=== PATIENT | male | born 1950 | race Caucasian/White ===

== ENCOUNTER → 2017-01-07 | Outpatient (CLI) | payer OTHER ==
[~2017-01-07] MED LIST: PANT40TA PO; TAMS0.4C59 PO; TRAM-10 PO
[2017-01-07 09:40] LABS: BASO % 1.4 %; BASO ABS # 0.09 K/uL (0-0.2); COMPLETE YES; EOS % 4.5 %; HEMATOCRIT 42.9 % (42-52); IG% 0.2 %; LYMPH % 33.3 %; LYMPH ABS # 2.07 K/uL (1.2-3.4); MEAN CELL VOLUME 92.1 fL (80-100); MEAN CORPUSCULAR HEMOGLOBIN 31.5 pg (25-34); MEAN CORPUSCULAR HGB CONC 34.3 g/dl (32-36); MEAN PLATELET VOLUME 11.1 fL (7.4-10.4); MONO % 12.1 %; NEUT % 48.5 %; PLATELET COUNT 201 K/uL (130-400); RED BLOOD COUNT 4.66 M/uL (4.7-6.1); WHITE BLOOD COUNT 6.21 K/uL (4.8-10.8)
[2017-01-07 09:51] LABS: ALT/SGPT 31 U/L (12-78); BLOOD UREA NITROGEN 11 mg/dl (7-18); BUN/CREATININE RATIO 8.8 (10-20); CALCIUM 9.2 mg/dl (8.5-10.1); CARBON DIOXIDE 28 mmol/L (21-32); CHLORIDE 108 mmol/L (98-107); CHOLESTEROL 125 mg/dl (0-200); GLUCOSE 97 mg/dl (70-99); POTASSIUM 4.5 mmol/L (3.5-5.1); SODIUM 144 mmol/L (136-145); TRIGLYCERIDES 104 mg/dl (0-150); VERY LOW DENSITY LIPOPROT CALC 21 mg/dl
[2017-01-07 10:01] LABS: ALB/GLOB RATIO 1.2 (0.9-2); ALKALINE PHOSPHATASE 48 U/L (45-117); AST/SGOT 25 U/L (15-37); CHOLESTEROL/HDL RATIO 2.6; HDL CHOLESTEROL 49 mg/dl; LDL CHOLESTEROL CALCULATED 55 mg/dl
[2017-01-07 10:08] LABS: ESTIMATED AVERAGE GLUCOSE 123 mg/dl; HA1C FLAG Normal (Normal)
== END | disposition home or self-care (01) ==
LOC: C.LAB 08:15
PROVIDERS: ATTEND Internal Medicine Geriatric Medicine
DX: M19.90 Unspecified osteoarthritis, unspecified site (principal); R97.20 Elevated prostate specific antigen [PSA]; R73.9 Hyperglycemia, unspecified; I10 Essential (primary) hypertension; E78.5 Hyperlipidemia, unspecified

== ENCOUNTER → 2018-01-09 | Outpatient (CLI) | payer OTHER ==
[2018-01-09 10:25] LABS: ALBUMIN 3.9 gm/dl (3.4-5.0); ALT/SGPT 29 U/L (12-78); BLOOD UREA NITROGEN 16 mg/dl (7-18); CALCIUM 9.5 mg/dl (8.5-10.1); CARBON DIOXIDE 28 mmol/L (21-32); CREATININE 1.14 mg/dl (0.60-1.40); GLUCOSE 96 mg/dl (70-99); POTASSIUM 4.2 mmol/L (3.5-5.1); SODIUM 139 mmol/L (136-145)
[2018-01-09 10:28] LABS: ALKALINE PHOSPHATASE 50 U/L (45-117); AST/SGOT 24 U/L (15-37); CHOLESTEROL 123 mg/dl (0-200); LDL CHOLESTEROL CALCULATED 61 mg/dl; TOTAL PROTEIN 7.5 gm/dl (6.4-8.2)
== END | disposition home or self-care (01) ==
LOC: C.LAB 09:19
PROVIDERS: ATTEND Internal Medicine Geriatric Medicine
DX: N40.0 Benign prostatic hyperplasia without lower urinary tract symptoms (principal); R73.9 Hyperglycemia, unspecified; I10 Essential (primary) hypertension; E78.5 Hyperlipidemia, unspecified

== ENCOUNTER → 2018-01-29 | Outpatient (CLI) | payer OTHER ==
[2018-01-29 13:22] LABS: HEMATOCRIT 42.6 % (42-52); HEMOGLOBIN 14.4 g/dL (14.0-18.0); MEAN CORPUSCULAR HEMOGLOBIN 31.4 pg (25-34); MEAN CORPUSCULAR HGB CONC 33.8 g/dl (32-36); MEAN PLATELET VOLUME 11.2 fL (7.4-10.4); PLATELET COUNT 230 K/uL (130-400); RED CELL DISTRIBUTION WIDTH CV 12.6 % (11.5-14.5); RED CELL DISTRIBUTION WIDTH SD 42.5 fL (36.4-46.3); WHITE BLOOD COUNT 6.04 K/uL (4.8-10.8)
== END | disposition home or self-care (01) ==
LOC: C.LABBC 10:51
PROVIDERS: ATTEND Internal Medicine Geriatric Medicine
DX: I48.91 Unspecified atrial fibrillation (principal)

== ENCOUNTER 2020-05-22 10:14 | Observation (INO) ==
[2020-05-22] MEDS ORDERED: SODIUM CHLORIDE 0.9% 1000ML 1,000 ML IV SCH ×2 (11:00→12:22)
[2020-05-22 11:02] LABS: Basophils # (auto) 0.04 K/uL (0-0.2); Basophils % (auto) 0.7 %; Eosinophils # (auto) 0.14 K/uL (0-0.5); Eosinophils % (auto) 2.3 %; Hematocrit (blood only) 39.7 % (42-52); Hemoglobin 13.5 g/dL (14.0-18.0); Lymphocytes # (auto) 2.17 K/uL (1.2-3.4); Lymphocytes % (auto) 36.2 %; Mean Corpuscular Hemoglobin 31.3 pg (25-34); Mean Corpuscular Volume 91.9 fL (80-100); Mean Platelet Volume 10.9 fL (7.4-10.4); Monocytes # (auto) 0.61 K/uL (0.11-0.59); Monocytes % (auto) 10.2 %; Neutrophils # (auto) 3.03 K/uL (1.4-6.5); Neutrophils % (auto) 50.6 %; Platelet Count 214 K/uL (130-400); RDW Standard Deviation 43.9 fL (36.4-46.3); Red Blood Count 4.32 M/uL (4.7-6.1); White Blood Count 5.99 K/uL (4.8-10.8)
[2020-05-22 11:10] LABS: Alanine Aminotransferase 34 U/L (12-78); Aspartate Aminotransferase 25 U/L (15-37); BUN Creatinine Ratio 23.6 (10-20); Blood Urea Nitrogen 64 mg/dl (7-18); Calcium 9.2 mg/dl (8.5-10.1); Carbon Dioxide 25 mmol/L (21-32); Chloride 110 mmol/L (98-107); Est GFR (African American) 26.7; Glucose 105 mg/dl (70-99); Potassium 4.3 mmol/L (3.5-5.1); Sodium 142 mmol/L (136-145)
[2020-05-22 11:14] LABS: Alkaline Phosphatase 57 U/L (45-117); Bilirubin,Total 0.8 mg/dl (0.2-1); Troponin I < 0.015 ng/ml (0-0.045)
--- NOTE | 2020-05-22 11:27 | XRay Report ---
XR chest 1V portable CLINICAL HISTORY: dizziness COMPARISON STUDY: 10/19/2019 FINDINGS: The heart is normal in size. There is no failure. There is no lobar consolidation. Minimall y prominent left basilar markings are likely atelectatic. There are no pleural effusions.[ IMPRESSION: Minimally prominent left basilar markings statistically atelectatic. Otherwise negative c hest. ACT 112: Negative or not required by law. Electronically signed by: Dhiraj Collazo M.D. 05/22/2020 11:26 AM
--- NOTE | 2020-05-22 11:49 | Electrocardiogram Report ---
Test Reason : Blood Pressure : / mmHG Vent. Rate : 058 BPM Atrial Rate : 058 BPM P-R Int : 152 ms QRS Dur : 086 ms QT Int : 408 ms P-R-T Axes : 079 069 050 degrees QTc Int : 400 ms Sinus bradycardia Otherwise normal ECG When compared with ECG of 19-OCT-2019 08:36, No significant change was found Confirmed by Robert Lerma ([id number]) on 05/22/2020 11:49:15 AM Referred By: REFERRED SELF Confirmed By:oRbert Lerma
[2020-05-22 12:01] LABS: Appearance Urine Clear (Clear); Bilirubin Urine Negative (Negative); Blood Urine Negative (Negative); Color Urine Yellow; Glucose Urine UA Negative (Negative); Ketones Urine Negative (Negative); Leukocyte Esterase Urine Negative (Negative); Nitrite Urine Negative (Negative); Protein Urine Negative (Negative); Specific Gravity Urine 1.019 (1.000-1.030); Urobilinogen Urine Negative (Negative)
--- NOTE | 2020-05-22 12:18 | History & Physical Report ---
Date of Service May 22, 2020 Assessment & Plan (1) Acute kidney injury: Creatinine increased from 1.11 at baseline to 2.7 with associated elevated BUN in setting of increased exertion and dehydration - suspected pre-renal Known BPH on tamsulosin 0.8 mg p.o. at bedtime with increasing symptoms. US renal to assess for obstructive cause NSS 1 L bolus given in ER, additional 1 L bolus now, then LR 150 ml/hr UA unremarkable for infection (2) Elevated PSA: Continue tamsulosin. US renal to assess for significant retention (3) Hyperlipidemia: Continue atorvastatin 20mg PO QAM (4) Hypertension: Hold lisinopril due to AISSATOU Continue metoprolol succinate with hold parameters (5) Paroxysmal atrial fibrillation: Currently in NSR Metoprolol for rate control if he goes into this Continue apixaban 5mg PO BID for anticoagulation (6) Gastroesophageal reflux disease: Continue pantoprazole 20mg PO daily (7) DVT prophylaxis: Apixaban as above Admission and Anticipated Discharge Date Admission Date: 05/22/2020 History of Present Illness Chief Complaint: Dizziness Primary Care Provider: Uri Hand DO Girish Pal is a 69 year old male who presents to the ER due to dizziness. This has been present intermittently over the last week while he has been working on his cabin in [facility]. He hasn't worked as hard as he has done taking down his cabin, swinging sledge hammers for a long time. Was mainly drinking pepsi rather than water for hydration and believes he was getting dehydrated. 2 days ago he became much more dizzy occuring throughout the day. Worse when standing up and exerting himself. [place] like he was going lose consciousness but never did. Lost his balance a few times. Room not spinning around. No vision changes but light was hurting his eyes. No headache, just fuzzy feeling on head. Associated generalized but not unilateral weakness. No speech changes. He drove home 2 days ago, although he felt terrified to because of his dizziness. Once home he felt was doing a little better since coming back to [place] but occurred again today so decided to come to the ER. His BPH symptoms of increased urinary frequency and difficulty urinating have been worse over the last week in addition. No fevers, chills, shortness of breath, cough, loss of taste or smell. Allergies Allergy/AdvReac Type Severity Reaction Status Date / Time No Known Allergies Allergy Mild Verified 05/22/20 11:43 Home Medications Home Medications Medication Instructions Recorded Confirmed Type apixaban 5 mg tablet 5 mg PO BID 10/03/19 05/22/20 History tamsulosin 0.4 mg capsule 0.8 mg PO HS #180 cap 12/08/19 05/22/20 Rx tramadol 50 mg tablet 50 mg PO Q6H PRN #30 tab 12/11/19 05/22/20 Rx metoprolol succinate 25 mg 25 mg PO QAM #90 tab 02/16/20 05/22/20 Rx tablet,extended release 24 hr atorvastatin 20 mg tablet 20 mg PO QAM #90 tab 02/29/20 05/22/20 Rx pantoprazole 40 mg tablet,delayed 20 mg PO QAM #90 tab 03/27/20 05/22/20 Rx release lisinopril 10 mg tablet 10 mg PO QAM #30 tab 04/17/20 05/22/20 Rx Past Med/Surg History Medical History Atrial fibrillation BPH (benign prostatic hyperplasia) Chronic back pain Degenerative disc disease Gastroesophageal reflux disease (Acute) Hearing deficit BILAT Hyperlipidemia Hypertension Osteoarthritis Rheumatoid arthritis Urinary frequency also decreased stream Surgical History History of cataract surgery right History of esophagogastroduodenoscopy (EGD) History of tonsillectomy Hx of colonoscopy Hx of hernia repair BILATERAL INGUINAL REPAIR S/P left knee arthroscopy Family History Brother Cancer Father , age 77 Cerebral aneurysm Mother , age 72 COPD (chronic obstructive pulmonary disease) Other Family history non-contributory Social History Preferred Language: Lao Communication Ability: Effective Visual Impairment: No Limitations Hearing Ability: Hard of Hearing 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 Beliefs That Will Affect Care: None marital status: Current Living Situation: Spouse current occupational status: retired Other Information That Helps Us Care for You: No Feels Safe at Home: Yes Safety Concerns: Feels Safe At This Time Smoking Status: Former smoker Smoking End Date: 1984 ; Second Hand Exposure: Yes ; Hx Alcohol Use: Yes Alcohol type: beer Hx Substance Use: No Childhood Exposure to Second-Hand Smoke: Yes Dental Care, Regularly: Yes Physical Activity Frequency: Daily Seatbelt Use: always Sunscreen Use: Yes Review of Systems Review of Systems: All systems reviewed & are unremarkable except as noted in HPI & below Physical Exam Constitutional: WD/WN, vitals as above Eyes: PERRL, conjunctivae normal, anicteric sclerae ENMT: external ear and nose normal, oropharynx normal Neck: trachea midline, no thyromegaly Respiratory: normal respiratory effort, lungs clear to auscultation Cardiovascular: RRR, no murmur, no edema Gastrointestinal (Abdomen): normal bowel sounds, soft, nontender, no hepatosplenomegaly Musculoskeletal: no cyanosis or clubbing, extremities motor strength 5/5 Skin: no rashes, warm and dry Neurologic: CN's II-XI intact bilaterally, moves all extremities and awake; no focal motor deficits and not confused Speech / Cognition: normal speech Motor/Sensory: no tremor, no pronator drift and no sensory deficit Psychiatric: A+Ox3, euthymic affect Genitourinary: no CVA tenderness Lymphatic: no cervical or axillary lymphadenopathy Results & Data Results & Data ([facility]) Vital Signs (Past 12 Hours) Vital Signs Temp Pulse Resp BP Pulse Ox 05/22/20 11:12 97 05/22/20 10:20 36.8 C 59 L 18 131/80 97 Diagnostic Findings XR chest 1V portable IMPRESSION: Minimally prominent left basilar markings statistically atelectatic. Otherwise negative chest. ECG Indication: other (Presyncope) Rate (beats per minute): 58 Rhythm: sinus bradycardia Comparison ECG Date: from (10/19/2019) Change: no significant change Code Status & VTE Plan Code Status Full VTE Prophylaxis Plan VTE Prophylaxis will be ordered: Yes PG Care Time/CCT Total # of Minutes Spent Total Time Spent with Patient: Total time spent is greater than 50% in coordination of care (as documented) at patient's floor/unit and/or counseling patient: Coding Level of Care Code 83391 Initial Inpt Care Lvl 3 Diagnoses Acute kidney injury N17.9 Elevated PSA R97.20 Hyperlipidemia E78.5 Hypertension I10 Paroxysmal atrial fibrillation I48.0 Gastroesophageal reflux disease K21.9 DVT prophylaxis Z29.9
--- NOTE | 2020-05-22 13:15 | Emergency Department Note ---
History of Present Illness General Chief complaint: Dizziness Stated complaint: REAL DIZZY Source: patient Mode of arrival: ambulatory Limitations: no limitations History of Present Illness Provider complaint: Dizziness Onset (ago): week(s) 1 (Worsening over the last 48 hours) Maximum Pain Intensity: 3 This patient is a 69-year-old male who presents to the emergency department with complaints of dizziness that began approximately 1 week ago. The patient states he has been working hard tearing down a cabin in [facility] over the last 2 weeks. He noticed difficulty with his increased exertion immediately however attributed it to the fact that it is more work than he has done in many years. Over the course of the second week, patient has noticed dizziness, particularly when standing up or bending over. He denies any significant trauma but states his upper extremities have been sore because he has been swinging a sledgehammer. Several days ago the patient states he was so dizzy it was difficult for him to drive to the convenient store to buy Gatorade. Patient denies any significant chest pain, fluttering in the chest, shortness of breath, fever, cough. He denies any vomiting or diarrhea. He states he has been urinating and stooling per usual. Home Medications Home Medications Medication Instructions Recorded Confirmed Type apixaban 5 mg tablet 5 mg PO BID 10/03/19 05/22/20 History tamsulosin 0.4 mg capsule 0.8 mg PO HS #180 cap 12/08/19 05/22/20 Rx tramadol 50 mg tablet 50 mg PO Q6H PRN #30 tab 12/11/19 05/22/20 Rx metoprolol succinate 25 mg 25 mg PO QAM #90 tab 02/16/20 05/22/20 Rx tablet,extended release 24 hr atorvastatin 20 mg tablet 20 mg PO QAM #90 tab 02/29/20 05/22/20 Rx pantoprazole 40 mg tablet,delayed 20 mg PO QAM #90 tab 03/27/20 05/22/20 Rx release lisinopril 10 mg tablet 10 mg PO QAM #30 tab 04/17/20 05/22/20 Rx Allergies Allergy/AdvReac Type Severity Reaction Status Date / Time No Known Allergies Allergy Mild Verified 05/22/20 11:43 Past Med/Surg History Medical History Atrial fibrillation BPH (benign prostatic hyperplasia) Chronic back pain Degenerative disc disease Gastroesophageal reflux disease (Acute) Hearing deficit BILAT Hyperlipidemia Hypertension Osteoarthritis Rheumatoid arthritis Urinary frequency also decreased stream Surgical History History of cataract surgery right History of esophagogastroduodenoscopy (EGD) History of tonsillectomy Hx of colonoscopy Hx of hernia repair BILATERAL INGUINAL REPAIR S/P left knee arthroscopy Family History Brother Cancer Father , age 77 Cerebral aneurysm Mother , age 72 COPD (chronic obstructive pulmonary disease) Other Family history non-contributory Social History Preferred Language: Trinidadian Communication Ability: Effective Visual Impairment: No Limitations Hearing Ability: Hard of Hearing 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 and A total of 10 systems reviewed and were otherwise negative Physical Exam Vital Signs Vital Signs - 24 hr 05/22/20 10:20 05/22/20 10:32 05/22/20 11:12 Temperature 36.8 C Temperature Source Oral Pulse Rate - Lying 55 L Pulse Rate - Sitting 56 L Pulse Rate - Standing 69 Pulse Rate 59 L Respiratory Rate 18 Respiratory Effort / Characteristics Non-Labored Respiratory Depth Normal Respiratory Pattern Regular Blood Pressure - Lying 114/73 Blood Pressure - Sitting 121/75 Blood Pressure- Standing 128/82 Blood Pressure 131/80 Blood Pressure Mean 97 Blood Pressure Position Sitting Pulse Oximetry 97 97 Oxygen Delivery Method Room Air Room Air Sepsis Recent Fever Within 48 Hours No Sepsis New/Unexplained Change in Mental Status No Sepsis Action Taken by Nursing No Action Required Vital signs reviewed. General: Well-appearing 69 yo male, in no significant distress. HEENT: No scleral icterus, PERRLA, neck supple. Atraumatic. Cardiovascular: Bradycardic rate and rhythm, no extra sounds. Pulmonary: Clear to auscultation bilaterally, normal work of breathing. Abdomen: Soft, nontender, nondistended, positive bowel sounds. Musculoskeletal: Atraumatic, no peripheral edema. Neurologic: Patient awake alert and oriented x 3 Skin: Warm, dry, no rash Course Administered Medications Discontinued Medications Apixaban (Eliquis) 5 mg PO BID [facility] Stop: 06/21/20 20:59 Last Admin: 05/23/20 07:48 Dose: 5 mg Documented by: [id number] Admin: 05/22/20 19:58 Dose: 5 mg Documented by: [id number] Atorvastatin Calcium (Lipitor) 20 mg PO QAM [facility] Stop: 06/22/20 08:59 Last Admin: 05/23/20 07:48 Dose: 20 mg Documented by: [id number] Sodium Chloride (Nss 1000ml) 1,000 mls @ 999 mls/hr IV .Q1H1M [facility] Stop: 05/22/20 12:00 Last Infusion: 05/22/20 11:56 Dose: 0 mls/hr Documented by: [id number] Admin: 05/22/20 10:54 Dose: 999 mls/hr Documented by: [id number] Sodium Chloride (Nss 1000ml) 1,000 mls @ 999 mls/hr IV .Q1H1M [facility] Stop: 05/22/20 13:22 Last Infusion: 05/22/20 16:16 Dose: 0 mls/hr Documented by: [id number] Admin: 05/22/20 15:00 Dose: 999 mls/hr Documented by: [id number] Lactated Ringer's (Lr) 1,000 mls @ 150 mls/hr IV .Q6H40M [facility] Stop: 06/21/20 16:05 Last Admin: 05/23/20 11:42 Dose: 150 mls/hr Documented by: [id number] Infusion: 05/23/20 11:28 Dose: 150 mls/hr Documented by: [id number] Admin: 05/23/20 04:47 Dose: 150 mls/hr Documented by: [id number] Infusion: 05/23/20 04:44 Dose: 150 mls/hr Documented by: [id number] Admin: 05/22/20 22:03 Dose: 150 mls/hr Documented by: [id number] Infusion: 05/22/20 22:03 Dose: 150 mls/hr Documented by: [id number] Admin: 05/22/20 16:12 Dose: 150 mls/hr Documented by: [id number] Metoprolol Succinate (Toprol Xl) 25 mg PO [facility] Stop: 06/22/20 08:59 Last Admin: 05/23/20 07:48 Dose: 25 mg Documented by: [id number] Pantoprazole Sodium (Protonix) 40 mg PO [facility]; Protocol Stop: 06/22/20 08:59 Last Admin: 05/23/20 07:48 Dose: 40 mg Documented by: [id number] Tamsulosin HCl (Flomax) 0.8 mg PO [facility] Stop: 06/21/20 20:59 Last Admin: 05/22/20 19:58 Dose: 0.8 mg Documented by: [id number] Medical Decision Making Differential Diagnosis Differential includes acute coronary syndrome, myocardial infarction, CVA, TIA, anemia, infection, pneumonia, UTI, pyelonephritis, poor nutrition, dehydration, electrolyte disturbance,hypoglycemia. Medical Records Attestation: I reviewed the patient's medical records. Home Medications Current Medication List: was personally reviewed by me Laboratory Data Attestation: I reviewed the patient's lab results. Result diagrams: 05/23/20 05:59 05/23/20 05:59 Lab Results 05/22/20 05/22/20 05/22/20 Range/Units 10:38 10:38 10:38 WBC 5.99 (4.8-10.8) K/uL RBC 4.32 L (4.7-6.1) M/uL Hgb 13.5 L (14.0-18.0) g/dL Hct 39.7 L (42-52) % MCV 91.9 (80-100) fL MCH 31.3 (25-34) pg MCHC 34.0 (32-36) g/dL RDW Std Deviation 43.9 (36.4-46.3) fL RDW Coeff of Gwyn 13.0 (11.5-14.5) % Plt Count 214 (130-400) K/uL MPV 10.9 H (7.4-10.4) fL Immature Gran % (Auto) 0.0 % Neut % (Auto) 50.6 % Lymph % (Auto) 36.2 % [place] % (Auto) 10.2 % Eos % (Auto) 2.3 % Baso % (Auto) 0.7 % Neut # (Auto) 3.03 (1.4-6.5) K/uL Lymph # (Auto) 2.17 (1.2-3.4) K/uL [place] # (Auto) 0.61 H (0.11-0.59) K/uL Eos # (Auto) 0.14 (0-0.5) K/uL Baso # (Auto) 0.04 (0-0.2) K/uL Immature Gran # (Auto) 0.00 (0.00-0.02) K/uL Sodium 142 (136-145) mmol/L Potassium 4.3 (3.5-5.1) mmol/L Chloride 110 H (98-107) mmol/L Carbon Dioxide 25 (21-32) mmol/L Anion Gap 7.0 (3-11) BUN 64 H (7-18) mg/dl Creatinine 2.70 H (0.6-1.4) mg/dl Est Cr Clr Drug Dosing Not Reportable Est GFR ( Amer) 26.7 Est GFR (Non-Af Amer) 23.0 BUN/Creatinine Ratio 23.6 H (10-20) Glucose 105 H (70-99) mg/dl Calcium 9.2 (8.5-10.1) mg/dl Magnesium (1.8-2.4) mg/dl Total Bilirubin 0.8 (0.2-1) mg/dl AST 25 (15-37) U/L ALT 34 (12-78) U/L Alkaline Phosphatase 57 (45-117) U/L Total Creatine Kinase 131 (39-308) U/L Troponin I < 0.015 (0-0.045) ng/ml Total Protein 8.0 (6.4-8.2) gm/dl Albumin 4.0 (3.4-5.0) gm/dl Globulin 4.0 (2.5-4.0) gm/dl Albumin/Globulin Ratio 1.0 (0.9-2) Urine Color Urine Appearance (Clear) Urine pH (4.5-7.5) Ur Specific [place] (1.000-1.030) Urine Protein (Negative) Urine Glucose (UA) (Negative) Urine Ketones (Negative) Urine Blood (Negative) Urine Nitrite (Negative) Urine Bilirubin (Negative) Urine Urobilinogen (Negative) Ur Leukocyte Esterase (Negative) 05/22/20 05/22/20 Range/Units 10:38 11:45 WBC (4.8-10.8) K/uL RBC (4.7-6.1) M/uL Hgb (14.0-18.0) g/dL Hct (42-52) % MCV (80-100) fL MCH (25-34) pg MCHC (32-36) g/dL RDW Std Deviation (36.4-46.3) fL RDW Coeff of Gwyn (11.5-14.5) % Plt Count (130-400) K/uL MPV (7.4-10.4) fL Immature Gran % (Auto) % Neut % (Auto) % Lymph % (Auto) % [place] % (Auto) % Eos % (Auto) % Baso % (Auto) % Neut # (Auto) (1.4-6.5) K/uL Lymph # (Auto) (1.2-3.4) K/uL [place] # (Auto) (0.11-0.59) K/uL Eos # (Auto) (0-0.5) K/uL Baso # (Auto) (0-0.2) K/uL Immature Gran # (Auto) (0.00-0.02) K/uL Sodium (136-145) mmol/L Potassium (3.5-5.1) mmol/L Chloride (98-107) mmol/L Carbon Dioxide (21-32) mmol/L Anion Gap (3-11) BUN (7-18) mg/dl Creatinine (0.6-1.4) mg/dl Est Cr Clr Drug Dosing Est GFR ( Amer) Est GFR (Non-Af Amer) BUN/Creatinine Ratio (10-20) Glucose (70-99) mg/dl Calcium (8.5-10.1) mg/dl Magnesium 2.1 (1.8-2.4) mg/dl Total Bilirubin (0.2-1) mg/dl AST (15-37) U/L ALT (12-78) U/L Alkaline Phosphatase (45-117) U/L Total Creatine Kinase (39-308) U/L Troponin I (0-0.045) ng/ml Total Protein (6.4-8.2) gm/dl Albumin (3.4-5.0) gm/dl Globulin (2.5-4.0) gm/dl Albumin/Globulin Ratio (0.9-2) Urine Color Yellow Urine Appearance Clear (Clear) Urine pH 5.0 (4.5-7.5) Ur Specific Wesley 1.019 (1.000-1.030) Urine Protein Negative (Negative) Urine Glucose (UA) Negative (Negative) Urine Ketones Negative (Negative) Urine Blood Negative (Negative) Urine Nitrite Negative (Negative) Urine Bilirubin Negative (Negative) Urine Urobilinogen Negative (Negative) Ur Leukocyte Esterase Negative (Negative) Imaging Data Radiologist's Impression: XR chest 1V portable CLINICAL HISTORY: dizziness COMPARISON STUDY: 10/19/2019 FINDINGS: The heart is normal in size. There is no failure. There is no lobar consolidation. Minimally prominent left basilar markings are likely atelectatic. There are no pleural effusions.[ IMPRESSION: Minimally prominent left basilar markings statistically atelectatic. Otherwise negative chest. ACT 112: Negative or not required by law. Electronically signed by: Dhiraj Collazo M.D. 05/22/2020 11:26 AM Dictated: 05/22/20 1125 Transcribed: 05/22/20 1125 renal/blad retro comp HISTORY: Renal insufficiency AISSATOU, known BPH ?hydronephrosis COMPARISON: None. FINDINGS: Right kidney: Maximum dimension 11.5 cm. No evidence for hydronephrosis. Normal corticomedullary differentiation and cortical thickness. Left kidney: Maximum dimension 10.9 cm. No evidence for hydronephrosis Normal corticomedullary differentiation and cortical thickness. Bladder: No bladder wall thickening. The bilateral ureteral jets were identified. IMPRESSION: Normal renal ultrasound. ACT 112: Negative or not required by law. The above report was generated using voice recognition software. It may contain grammatical, syntax or spelling errors. Electronically signed by: Carmelo Wagner M.D. 05/22/2020 3:16 PM ECG Data Attestation: I personally reviewed and interpreted this ECG as follows: Indication: + weakness Rate (beats per minute): 58 Rhythm: + sinus bradycardia ECG Intervals/blocks: + Normal QRS and + Normal QT-c ECG [place]: + Normal ECG ST segments: + Normal ST segments ECG Findings: no PACs and no PVCs Blood Pressure Blood Pressure Findings: Elevated blood pressure Blood Pressure Disposition: Referred to patients primary care provider DEVIN Narrative This patient was evaluated and appeared to be in no significant distress. An order for cardiac monitoring was placed and the patient is found to be in a sinus bradycardia at 58 bpm. IV access was obtained and laboratory work was drawn. The patient was hydrated with normal saline solution. Chest x-ray was performed and reveals atelectasis at the left base no other acute abnormality. Laboratory work was obtained and reveals a normal WBC but an elevated creatinine at 2.70. Patient's BUN is 64. Patient's troponin is normal and a total CK is 131. Urinalysis is clear. Patient's vital signs did remain stable. The patient is suffering an acute kidney injury from dehydration from the ov erexertion of the last 2 weeks. He has not been able to adequately hydrate. Patient will be evaluated by the hospitalist for further management. He is aware of the plan and agrees. Impression & Plan Acute kidney injury, Dehydration after exertion, Dizziness Discharge Plan Visit Data *Final* Discharge Date/Time: 05/22/20 15:54 Chief Complaint: Dizziness Stated Complaint: REAL DIZZY ED Provider: Jennifer Amato ED Midlevel Provider: Bossman Kaur Discharge Problem: Acute kidney injury, Dehydration after exertion, Dizziness Patient Disposition: Admitted As Inpatient Discharge Instructions Interventions: ED Discharge Assessment Last Done: 05/22/20 15:54
--- NOTE | 2020-05-22 15:17 | Ultrasound Report ---
US renal/blad retro comp HISTORY: Renal insufficiency AISSATOU, known BPH ?hydronephrosis COMPARISON: None. FINDINGS: Right kidney: Maximum dimension 11.5 cm. No evidence for hydronephrosis. Normal corticomedullary diff erentiation and cortical thickness. Left kidney: Maximum dimension 10.9 cm. No evidence for hydronephrosis Normal corticomedullary diffe rentiation and cortical thickness. Bladder: No bladder wall thickening. The bilateral ureteral jets were identified. IMPRESSION: Normal renal ultrasound. ACT 112: Negative or not required by law. The above report was generated using voice recognition software. It may contain grammatical, syntax or spelling errors. Electronically signed by: Carmelo Wagner M.D. 05/22/2020 3:16 PM
[2020-05-22] MEDS ORDERED: TRAMADOL HCL 50 MG TABLET PO PRN (16:06)
[2020-05-22] MEDS: LACTATED RINGER'S 1,000 ML IV SCH ×2 (16:12→22:03)
[2020-05-22] MEDS ORDERED: ACETAMINOPHEN 325 MG TAB PO PRN (19:42)
[2020-05-22] MEDS ORDERED: POLYETHYLENE (MIRALAX) 17 GM PACK PO PRN (19:42)
[2020-05-22] MEDS ORDERED: ONDANSETRON INJ 2 MG/ML 2 ML VIAL IV PRN (19:42)
[2020-05-22] MEDS ORDERED: MAGNESIUM HYDROXIDE SUSP 30 ML UDC PO PRN (19:42)
[2020-05-22] MEDS ORDERED: ALUMINUM/MAGNESIUM SUSP 30 ML UDC PO PRN (19:42)
[2020-05-22] MEDS: APIXABAN 5 MG TABLET PO SCH (19:58)
[2020-05-22] MEDS ORDERED: TAMSULOSIN HCL 0.4 MG CAP PO SCH (21:00)
[2020-05-23] MEDS: LACTATED RINGER'S 1,000 ML IV SCH ×2 (04:47→11:42)
[2020-05-23 06:19] LABS: Hemoglobin 11.6 g/dL (14.0-18.0); Mean Corpuscular Hemoglobin 30.5 pg (25-34); Mean Corpuscular Hgb Conc 33.1 g/dL (32-36); Mean Corpuscular Volume 92.1 fL (80-100); Mean Platelet Volume 10.7 fL (7.4-10.4); Platelet Count 182 K/uL (130-400); RDW Coefficient of Variation 12.8 % (11.5-14.5); RDW Standard Deviation 43.1 fL (36.4-46.3); White Blood Count 5.54 K/uL (4.8-10.8)
[2020-05-23 06:56] LABS: BUN Creatinine Ratio 24.7 (10-20); Calcium 8.7 mg/dl (8.5-10.1); Creatinine Clr Calc Pharmacy 46.1 ml/min; Est GFR (African American) 49.8; Potassium 4.2 mmol/L (3.5-5.1)
[2020-05-23] MEDS: APIXABAN 5 MG TABLET PO SCH (07:48)
[2020-05-23] MEDS ORDERED: PANTOprazole 40 MG TAB PO SCH (09:00)
[2020-05-23] MEDS ORDERED: METOPROLOL SUCC 25MG EXT REL TAB PO SCH (09:00)
[2020-05-23] MEDS ORDERED: ATORVASTATIN 20 MG TAB PO SCH (09:00)
--- NOTE | 2020-05-23 12:48 | Discharge Summary ---
Date of Service May 23, 2020 Admission HPI Per Admitting Provider Girish Pal is a 69 year old male who presents to the ER due to dizziness. This has been present intermittently over the last week while he has been working on his cabin in [facility]. He hasn't worked as hard as he has done taking down his cabin, swinging sledge hammers for a long time. Was mainly drinking pepsi rather than water for hydration and believes he was getting dehydrated. 2 days ago he became much more dizzy occuring throughout the day. Worse when standing up and exerting himself. [place] like he was going lose consciousness but never did. Lost his balance a few times. Room not spinning around. No vision changes but light was hurting his eyes. No headache, just fuzzy feeling on head. Associated generalized but not unilateral weakness. No speech changes. He drove home 2 days ago, although he felt terrified to because of his dizziness. Once home he felt was doing a little better since coming back to [place] but occurred again today so decided to come to the ER. His BPH symptoms of increased urinary frequency and difficulty urinating have been worse over the last week in addition. No fevers, chills, shortness of breath, cough, loss of taste or smell. Principal Diagnosis Acute Kidney Injury Discharge Exam Constitutional WD/WN, vitals as above Eyes PERRL, conjunctivae normal, anicteric sclerae ENMT external ear and nose normal, oropharynx normal Mouth: + dry oral mucous membranes Neck normal visual inspection Respiratory normal respiratory effort, lungs clear to auscultation Cardiovascular Rate/Rhythm: regular rate and regular rhythm Heart Sounds: normal S1 and normal S2; no gallop, no murmur and no cardiac rub Vessels: normal peripheral pulses; no JVD Extremities: no pedal edema Gastrointestinal (Abdomen) normal bowel sounds, soft, nontender, no hepatosplenomegaly Musculoskeletal no cyanosis or clubbing, extremities motor strength 5/5 Skin no rashes, warm and dry + turgor decreased Neurologic patellar DTR's 2+ bilat, sensation intact Psychiatric A+Ox3, euthymic affect Discharge Data Allergies Allergy/AdvReac Type Severity Reaction Status Date / Time No Known Allergies Allergy Mild Verified 05/22/20 11:43 Consultations 05/22/20 11:59 ED Decision to Admit Stat 06/22/20 12:18 ED Decision to Admit Stat Ordered Studies 05/22/20 12:38 US renal/blad retro comp Stat Hospital Course (1) Acute kidney injury: - Cr 2.7 on admission with subsequent improvement after IV rehydration; 1 .6 this AM - suspect that this is likely pre-renal in etiology - BMP in two days - advised patient to drink 100oz of water daily until follow-up with Dr. Hand on 05/26 - if Cr does not continue to improve, then would consider FeNa calculation for examination of potential intrinsic renal contributions to AISSATOU Total Time Total Time Spent Total Time Spent (In Minutes): <30 Discharge Plan Discharge Items Patient Disposition: Home - Self-Care Reason For Visit: AISSATOU Discharge Diagnosis: Acute Kidney Injury Activity: Per Instructions section Non-emergency contact: Primary Care Provider Call non-emergency contact if: you have any medication questions and your symptoms worsen Follow-up/Referrals: Uri Hand, DO [Primary Care Provider] - 05/26/20 11:00 am (Please, follow up at Dr. Uri Hand's office with his associate, Tiffany Tiwari PA-C, on FridayMay 26 at 11:00 am. *If you need to change this appointment, call the office at [phone].) Diet: Regular Ambulatory Orders: Basic Metabolic Panel (Routine) Timeframe: 2 Days Location: Determined by Patient Ordered By: Tono Ornelas Attending Provider Instructions: You were seen and admitted following continued fatigue and dizziness over the last ten days; during this admission, it was discovered that you were significantly dehydrated and as a result of this there was damage to your kidney. Following receiving some more fluids through an IV, the labs that we use to monitor your kidney function had improved. As a result of this improvement, you are now being discharged. It is important that in the next two days, you have a repeat lab check that will continue to monitor your kidney numbers. We were able to arrange an appointment with Dr. Hand for 05/26, at 11am; it is important that after you get the lab drawn you remind them to include Dr. Hand on a copy of the results. In order to continue to improve your kidney number following discharge, it is important that you increase that amount of water that you drink especially while you are working outside in the sun. Over the next two days you should aim to drink 100 ounces of water each day. Once you have improvement in your kidney numbers, your doctor will likely instruct you to reduce your water consumption to approximately 70-80 ounces of water a day. It is important that this is water, and not Pepsi, as Pepsi does not increase your hydration and when you're working outside you will continue to dehydrate yourself. Pending Studies at Discharge: No Stand-Alone Forms: [facility], Smoking Cessation Medications and DC Order Prescriptions: Continued tamsulosin 0.4 mg capsule 0.8 mg PO HS Qty: 180 RF: 3 tramadol 50 mg tablet 50 mg PO Q6H PRN (Reason: pain) Qty: 30 RF: 0 metoprolol succinate 25 mg tablet extended release 24 hr 25 mg PO QAM Qty: 90 RF: 1 atorvastatin 20 mg tablet 20 mg PO QAM Qty: 90 RF: 3 pantoprazole 40 mg tablet,delayed release (DR/EC) 20 mg PO QAM Qty: 90 RF: 1 lisinopril 10 mg tablet 10 mg PO QAM Qty: 30 RF: 0 Eliquis 5 mg tablet 5 mg PO BID RF: 0 Discharge Orders: Discharge Order (Routine); Ordered 05/23/20 Ordered By: Tono Brar Admission Data Admit Date/Time: 05/22/20 12:39 Attending Provider: Sin Gillette Admit Provider: Klaus Jin Primary Care Provider: Uri Hand Other Providers: Jennifer Amato ; Klaus Jin Other Interventions: Discharge Summary Assessment (RN) Last Done: 05/23/20 14:39 DC Date/Time DO NOT enter until pt leaves facility: 05/23/20 15:46 Supervising Physician Co-Signing Physician Notes I personally examined the patient and verified all condon points of history and exam, discussed case, and agree with decision making with Dr Brar. feeling better and strongly wants to go home. discussed risks/benefits and choices - most comfortable with home and ongoing PO hydration, outpt labs in ~2 days. vitals noted nad heent nc at mmm breathing unlabored no accessory muscles good effort skin no rashes no pallor or icterus AISSATOU/ARF - due to dehydration/prerenal status - nwo improving. stable to go home as is his strong desire. aggressive ongoing PO hydration, labs on 05/25. otherwise as above Resident Activity Tracking Resident Involvement: Resident Care Provided Care Provided: Adult Hospital Medicine
--- NOTE | 2020-05-23 16:34 | Billing Data ---
Date of Service May 23, 2020 Coding Level of Care Code D/C Day Management <30 mins
== END 2020-05-23 15:46 | disposition home or self-care (01) | DRG 641 ==
LOC: ED 10:14 → INTOOBSV 12:39 → 2W 12:39 → SUATTDRO 12:39 → 2W 15:54

== ENCOUNTER 2024-09-01 17:53 | Inpatient (IN) ==
[2024-09-01 19:08] LABS: Basophils # (auto) 0.09 K/uL (0.00-0.20); Eosinophils # (auto) 0.08 K/uL (0.00-0.50); Eosinophils % (auto) 0.9 %; Hematocrit (blood only) 32.3 % (42.0-52.0); Hemoglobin 10.7 g/dl (14.0-18.0); Immature Granulocytes # (auto) 0.02 K/uL (0.01-0.20); Immature Granulocytes % (auto) 0.2 %; Lymphocytes # (auto) 0.85 K/uL (1.20-3.40); Lymphocytes % (auto) 9.2 %; Mean Corpuscular Hemoglobin 30.7 pg (25.0-34.0); Mean Corpuscular Hgb Conc 33.1 g/dL (32.0-36.0); Mean Corpuscular Volume 92.8 fL (80.0-100.0); Mean Platelet Volume 9.8 fL (9.4-12.4); Monocytes # (auto) 1.16 K/uL (0.11-0.59); Monocytes % (auto) 12.5 %; Neutrophils # (auto) 7.05 K/uL (1.40-6.50); Neutrophils % (auto) 76.2 %; Platelet Count 567 K/uL (130-400); RDW Coefficient of Variation 12.8 % (11.5-14.5); RDW Standard Deviation 43.8 fL (36.4-46.3); Red Blood Count 3.48 M/uL (4.70-6.10); White Blood Count 9.25 K/ul (4.8-10.8)
[2024-09-01 19:25] LABS: Albumin Globulin Ratio 0.7 (0.9-2); Albumin Level 3.2 gm/dl (3.4-5.0); BUN Creatinine Ratio 12.8 (10-20); Bilirubin,Total 0.4 mg/dl (0.2-1.0); Calcium 8.8 mg/dl (8.6-10.3); Creatinine Clr Calc Pharmacy 35.9 ml/min; Globulin 4.5 gm/dl (2.5-4.0); Potassium 4.2 mmol/L (3.5-5.1); Total Protein 7.7 gm/dl (6.0-8.3)
[2024-09-01] MEDS: HYDROmorphone INJ 0.5 MG/0.5 ML SYR IV PRN ×2 (19:29→23:05)
[2024-09-01] MEDS: ONDANSETRON INJ 2 MG/ML 2 ML VIAL IV STA (19:29)
--- NOTE | 2024-09-01 19:57 | History & Physical Report ---
Date of Service September 01, 2024 Assessment & Plan (1) Perinephric hematoma: (2) Hydronephrosis: (3) Elevated serum creatinine: (4) Anemia: (5) Gastroesophageal reflux disease: (6) BPH (benign prostatic hyperplasia): (7) Hypertension: (8) Hyperlipidemia: Yanna Stout is a 73M w/ PMH of prediabetes, AFib, bladder mass, anemia, back pain, GERD, BPH, HTN, and HLD who presents for abnormal labs and imaging noted outpatient. Perinephric Hematoma - S/p TURP 08/16 w/ complications requiring stent placement for scarring/strictures - CTAP 09/01 indicating right perinephric hematoma ~ 10 cm and left hydronephrosis - Hgb reduced to 10.3 from baseline 12 - On chronic Eliquis for AFib, held on admission Would restart when hematoma deemed clinically stable d/t risk of stroke from A Fib - Hemodynamically stable on room air - Continues to urinate regularly w/o hematuria, patient preference to avoid Hui at this time - Urology recommending admission, consulted for further recommendations in AM - Continue to monitor H&H Acute Kidney Injury - Baseline ~1.6, now 1.9+ - Suspect dehydration/poor PO intake component - Start mIVF Echo 03/2024 w/ EF 55-60% Acute Blood Loss Anemia Patient on Chronic Anticoagulation (Eliquis) - Baseline Hgb ~ 12, now 10.3 - Anticoagulation held on admission - Trend H&H Chronic Conditions: - AFib: hold Anticoagulation, continue Metoprolol, rate controlled - HLD - hold Atorvastatin - HTN - hold CHANTEL-I d/t AISSATOU, continue Metoprolol - GERD - continue Pantoprazole - Bladder Spasms - hold oxybutynin d/t AISSATOU, continue Pyridium/tamsulosin Code: Full DVT: Ambulation Diet: NPO pending Urology Dispo: Med/tele History of Present Illness Chief Complaint: Perinephric Hematoma Primary Care Provider: Uri Hand DO Girish is a 73M w/ PMH of prediabetes, bladder mass, anemia, back pain, GERD, BPH, HTN, and HLD who presents for abnormal labs and imaging noted outpatient. ED: [facility] HPI: Patient presented to the Urologist today for planned post-TURP follow up and was sent for CT-AP and labs due to generalized illness since his surgical procedure 08/19/24. Patient's post-operative course was complicated by scarring, strictures, and urinary obstruction. Patient currently maintains a stent on the right side. Patient notes that he has felt generally weak and fatigued over the last 2 weeks and has had no appetite or drive to drink, so much so that he has lost 10 lbs. Post-surgical pathology did not show signs of malignancy. Patient denies URI sx, fevers or congestion, but has been experiencing intermittent chills. He notes that he has had right sided flank pain since his procedure that is tender to palpation. He denies additional abdominal discomfort, nausea or emesis. He notes that he is incontinent of urine at baseline and has a high urinary frequency (he uses depends at home and prefers to avoid catheterization if possible), but that over the last two weeks his urine has been increasingly foul/strong scented and cloudy. He did require catheterization during admission for his procedure. Patient denies hematuria. Continues to move bowels regularly w/o BRBPR or melena. Allergies Allergy/AdvReac Type Severity Reaction Status Date / Time No Known Drug Allergies Allergy Verified 08/16/24 11:59 Home Medications Medication Instructions Recorded Confirmed Type cholecalciferol (vitamin D3) 25 25 mcg PO QAM 01/24/22 08/16/24 History mcg (1,000 unit) capsule vitamin E acetate 100 unit capsule 100 unit PO QAM 04/15/24 08/16/24 History metoprolol succinate 25 mg 25 mg PO QAM #90 tabs 04/28/24 08/16/24 Rx tablet,extended release 24 hr tamsulosin 0.4 mg capsule 0.8 mg (2 x 0.4 mg) PO HS #180 caps 04/28/24 08/16/24 Rx oxybutynin chloride 5 mg tablet 5 mg PO TID PRN bladder spasms #30 05/10/24 Rx tabs apixaban 5 mg tablet (Eliquis) See Rx Instructions .Route 06/09/24 08/16/24 Rx .COMPLEX #180 tabs pantoprazole 40 mg tablet,delayed 40 mg PO QAM #90 tabs 07/23/24 08/16/24 Rx release ampicillin 500 mg capsule 500 mg PO TID #30 caps 08/16/24 Rx phenazopyridine 200 mg tablet 200 mg PO Q8H PRN pain #10 tabs 08/16/24 Rx (Pyridium) atorvastatin 20 mg tablet (Lipitor) 20 mg PO QAM #90 tabs 08/26/24 Rx losartan 100 mg tablet (Cozaar) 100 mg PO HS #90 tabs 08/31/24 Rx levofloxacin 500 mg tablet 500 mg PO DAILY #10 tabs 09/01/24 09/01/24 Rx Past Med/Surg History Problem List Perinephric hematoma (Acute) Upper respiratory infection Pre-operative cardiovascular examination, myocardial ischemia Abnormal cardiovascular stress test 04/05/24 stress: development of flat to downsloping ST segment depressions, development of afib with RVR; this was followed by a Cardiac CT/FFR Coronary Arteries which showed moderate CAD (non-hemodynamically significant) and nonobstructive disease in Left coronary arteries Hydronephrosis Elevated serum creatinine Skin lesion of face Prediabetes Bladder mass Anemia Bladder wall thickening Chronic back pain Gastroesophageal reflux disease BPH (benign prostatic hyperplasia) Followed by Urology Hypertension Hyperlipidemia Medical History Elevated serum creatinine per Urology, pt with 'significant outlet obstruction'; creat remains slightly elevated Abnormal cardiovascular stress test 04/05/24 stress: development of flat to downsloping ST segment depressions, development of afib with RVR; this was followed by a Cardiac CT/FFR Coronary Arteries which showed moderate CAD (non-hemodynamically significant) and nonobstructive disease in Left coronary arteries Hyperlipidemia GERD (gastroesophageal reflux disease) Chronic back pain BPH (benign prostatic hyperplasia) Bladder mass History of anemia Hypertension CRAWFORD (dyspnea on exertion) mild Prediabetes diet and exercise Cervicalgia History of bladder stone History of prostate cancer (~2021) radiation tx completed Chronic obstructive pulmonary disease History of asthma As child Bronchospasm Remote hx- pt "unsure of any details, doesn't remember this at all" Degenerative disc disease Hearing deficit B/L hearing loss - no BLISS's Atrial fibrillation pt had afib with RVR during stress test 04/05/24, currently on Eliquis Surgical History History of cystoscopy cysto, stent 04/15/24 [facility]: MAC without issue Hx of bilateral cataract extraction Hx of knee surgery R/L (1970s) Hx of arthroscopy of right knee History of transurethral resection of bladder tumor (TURBT) S/P left knee arthroscopy History of esophagogastroduodenoscopy (EGD) History of tonsillectomy Hx of colonoscopy Hx of hernia repair B/L inguinal hernia Family History Brother , age 65 Cancer Father , age 77 Cerebral aneurysm Mother , age 72 Lung cancer COPD (chronic obstructive pulmonary disease) Other Family history non-contributory No family history of adverse response to anesthesia Denies family history of Ovarian cancer Prostate cancer Diabetes Myocardial infarction Breast cancer Colorectal cancer Stroke Social History Smoking Status: Never smoker Tobacco Type: Cigarettes Age Started Using Tobacco: 19; Age Quit Using Tobacco: 35; packs per day: 1; Second Hand Exposure: Yes (hx growing up); Do You Dip or Chew Tobacco: No; Hx Alcohol Use: No Hx Substance Use: No Preferred Language: Polish Communication Ability: Effective Visual Impairment: No Limitations Hearing Ability: Hard of Hearing Cutting Pressman Required: No Beliefs That Will Affect Care: None marital status: Current Living Situation: Spouse current occupational status: retired current occupation: retired from [employer] How many Children do You have: 2 Feels Safe at Home: Yes Safety Concerns: Feels Safe At This Time Childhood Exposure to Second-Hand Smoke: Yes Diet: regular caffeine: Yes (Pepsi at least 2 liters/day) during the past year weight has: remained stable Dental Care, Regularly: Yes Physical Activity Frequency: Daily Physical Activity Frequency Comment: sking/four wheeling/active lifestyle Seatbelt Use: always Sunscreen Use: Yes Do you think of yourself as: straight/heterosexual Assistive Devices: None Physical Exam Physical Exam: Gen: NAD, alert, interactive HEENT: Supple, no LAD, no thyromegaly, no JVD, dry mucous membranes Resp:Non-labored, no wheezing/rhonchi/rales, CTAB CV:RRR, normal S1/S2, no M/R/G Abd: Soft, non-distended, no TTP, normoactive bowels, no masses, right CVA tenderness, no suprapubic TTP Extr: 2+ dp bilaterally, no edema Skin: No rashes lesions or erythema Results & Data Results & Data Vital Signs (Past 12 Hours) Vital Signs Temp Pulse Resp BP Pulse Ox O2 Del Method 09/01/24 18:33 74 09/01/24 18:19 36.9 C 74 20 143/77 H 96 Room Air Laboratory Results Laboratory Results WBC 9.25 K/ul (4.8-10.8) 09/01/24 18:36 RBC 3.48 M/uL (4.70-6.10) L 09/01/24 18:36 Hgb 10.7 g/dl (14.0-18.0) L 09/01/24 18:36 Hct 32.3 % (42.0-52.0) L 09/01/24 18:36 MCV 92.8 fL (80.0-100.0) 09/01/24 18:36 MCH 30.7 pg (25.0-34.0) 09/01/24 18:36 MCHC 33.1 g/dL (32.0-36.0) 09/01/24 18:36 RDW Std Deviation 43.8 fL (36.4-46.3) 09/01/24 18:36 RDW Coeff of Gwyn 12.8 % (11.5-14.5) 09/01/24 18:36 Plt Count 567 K/uL (130-400) H 09/01/24 18:36 MPV 9.8 fL (9.4-12.4) 09/01/24 18:36 Immature Gran % (Auto) 0.2 % 09/01/24 18:36 Neut % (Auto) 76.2 % 09/01/24 18:36 Lymph % (Auto) 9.2 % 09/01/24 18:36 [place] % (Auto) 12.5 % 09/01/24 18:36 Eos % (Auto) 0.9 % 09/01/24 18:36 Baso % (Auto) 1.0 % 09/01/24 18:36 Neut # (Auto) 7.05 K/uL (1.40-6.50) H 09/01/24 18:36 Lymph # (Auto) 0.85 K/uL (1.20-3.40) L 09/01/24 18:36 [place] # (Auto) 1.16 K/uL (0.11-0.59) H 09/01/24 18:36 Eos # (Auto) 0.08 K/uL (0.00-0.50) 09/01/24 18:36 Baso # (Auto) 0.09 K/uL (0.00-0.20) 09/01/24 18:36 Immature Gran # (Auto) 0.02 K/uL (0.01-0.20) 09/01/24 18:36 PT 12.4 Seconds (9.0-12.0) H 09/01/24 18:36 INR 1.2 (0.9-1.1) H 09/01/24 18:36 APTT 28 Seconds (21-31) 09/01/24 18:36 PTT Ratio 1.0 09/01/24 18:36 Sodium 137 mmol/L (136-145) 09/01/24 18:36 Potassium 4.2 mmol/L (3.5-5.1) 09/01/24 18:36 Chloride 103 mmol/L (98-107) 09/01/24 18:36 Carbon Dioxide 29 mmol/L (21-32) 09/01/24 18:36 Anion Gap 5 (3-11) 09/01/24 18:36 BUN 25 mg/dl (6-23) H 09/01/24 18:36 Creatinine 1.95 mg/dl (0.6-1.4) H 09/01/24 18:36 Est Cr Clr Drug Dosing 35.9 ml/min 09/01/24 18:36 eGFR 35.66 09/01/24 18:36 BUN/Creatinine Ratio 12.8 (10-20) 09/01/24 18:36 Glucose 127 mg/dl (70-99(Fasting)) H 09/01/24 18:36 Calcium 8.8 mg/dl (8.6-10.3) 09/01/24 18:36 Total Bilirubin 0.4 mg/dl (0.2-1.0) 09/01/24 18:36 AST 81 U/L (13-39) H 09/01/24 18:36 ALT 109 U/L (7-52) H 09/01/24 18:36 Alkaline Phosphatase 173 U/L (34-104) H 09/01/24 18:36 Total Protein 7.7 gm/dl (6.0-8.3) 09/01/24 18:36 Albumin 3.2 gm/dl (3.4-5.0) L 09/01/24 18:36 Globulin 4.5 gm/dl (2.5-4.0) H 09/01/24 18:36 Albumin/Globulin Ratio 0.7 (0.9-2) L 09/01/24 18:36 Urine Color Yellow 09/01/24 22:00 Urine Appearance Turbid (Clear) A 09/01/24 22:00 Urine pH 5.5 (4.5-7.5) 09/01/24 22:00 Ur Specific [place] 1.019 (1.000-1.030) 09/01/24 22:00 Urine Protein 2+ (Negative) H 09/01/24 22:00 Urine Glucose (UA) Negative (Negative) 09/01/24 22:00 Urine Ketones Negative (Negative) 09/01/24 22:00 Urine Blood 3+ (Negative) H 09/01/24 22:00 Urine Nitrite Positive (Negative) A 09/01/24 22:00 Urine Bilirubin Negative (Negative) 09/01/24 22:00 Urine Urobilinogen Negative (Negative) 09/01/24 22:00 Ur Leukocyte Esterase 3+ (Negative) H 09/01/24 22:00 Urine WBC (Auto) >50 /hpf (0-5) H 09/01/24 22:00 Urine RBC (Auto) >20 /hpf (0-2) H 09/01/24 22:00 U Hyaline Cast (Auto) 6-10 /lpf (0-2) H 09/01/24 22:00 U Epithel Cells (Auto) 3-5 /hpf (0-2) H 09/01/24 22:00 Urine Bacteria (Auto) 3+ (None Seen) H 09/01/24 22:00 Blood Type B Positive 09/01/24 18:48 Antibody Screen NEGATIVE 09/01/24 18:48 Diagnostic Findings CTAP 08/31/2024 1600 IMPRESSION: 1. A right ureteral stent is in place. New from the 07/21/2024 renal ultrasound there is a large hematoma which appears to be centered within the right renal sinus measuring up to approximately 10 cm. This results in associated thinning of the adjacent renal cortex. 2. Mild left-sided hydronephrosis without renal or ureteral calculi identified. 3. Unchanged appearance of the urinary bladder. 4. Nonspecific anorectal wall thickening again noted. This could be correlated with colonoscopy if further clinical concern. 5. Colonic diverticulosis. 6. Additional findings as above. Supervising Physician Co-Signing Physician Notes Patient seen and examined, chart reviewed. I agree with the assessment and plan per Dr. Erazo as outlined above. In brief patient is a 73yo male with history of TURP 08/16/24 with stent placement now with right perinephric hematoma appx 10cm with left sided hydronephrosis. Patient with decreased Hgb 12 --> 10.3. On anticoagulation with Apixaban. Cr increased 1.6 --> 1.9 Pain is well controlled at present On exam he is afebrile, HD stable Resting comfortably MMM, Neck supple +S1/S2, regular, rate controlled Lungs CTA Abd soft, NT/ND Labs and images reviewed Assessment/Plan -Hold anticoagulation -NPO for possible Urological intervention in AM -Urology consultation appreciated -Dilaudid PRN pain -CBC q 6 hours - transfuse for active bleeding, Hgb < 7 or symptomatic anemia -Ceftriaxone for presumed UTI, recent intervention -Remainder as above Resident Activity Tracking Resident Involvement: Resident Care Provided Care Provided: Adult [facility] Medicine
[2024-09-01 20:06] LABS: INR 1.2 (0.9-1.1); Partial Thromboplastin Time 28 Seconds (21-31); Prothrombin Time 12.4 Seconds (9.0-12.0)
--- NOTE | 2024-09-01 20:18 | Emergency Department Note ---
Impression & Plan Perinephric hematoma ED Provider Note NAME: RACHEAL MCCOLLUM AGE: 73 SEX: Male INFORMANT: Patient ED PROVIDER(S): Beto White MD CHIEF COMPLAINT: Abnormal CT scan PLAN: Disposition: Admitted Outpatient prescription management: none Referral: None MEDICAL DECISION MAKING: Patient presented because of a right perinephric hematoma that was found on CT imaging. He was directed here by Dr. Frankel of urology. Patient was mildly anemic. Patient hemodynamically stable hemoglobin was rechecked and no significant drop noted. Patient was given IV Dilaudid and Zofran. Consultation was made with Dr. Cruz of urology. He recommended admission, n.p.o., holding Eliquis, and serial H&H's. Consultation was made with Dr. Dr. Funk of the [facility] service. Patient was evaluated in the ER for further management. Care/management discussed with: real estate operations manager Level of care consideration(s): After review of the information above and other included data, I feel the patient requires escalation of care to admission Triage Nursing notes: reviewed and agree them. Vital Signs: reviewed and remarkable for no significant abnormalities Additional History obtained from: Patient significant other. No trauma reported. Chronic Medical/Social Conditions affecting care: Anticoagulation Prior/ Outside/ External records reviewed: Outpatient CT imaging reviewed from today. Right perinephric hematoma. Differential Diagnosis: Hematoma, complication of recent surgery, renal colic, UTI, appendicitis, diverticulitis, mesenteric ischemia, aortic pathology, infections, inflammatory bowel disease, PUD, biliary pathology, as well as other pathologies. Diagnostics, independently interpreted by me: ECG: none Cardiac Monitoring: Cardiac monitoring ordered by me: The patient was placed on continuous cardiac monitoring and observed. It revealed a normal sinus rhythm at 74 beats per minute without ectopy or evidence of dysrhythmia. Medical decision rules: none Imaging studies: I did review the patient's CT imaging from earlier today and there is a right perinephric hematoma present. Chest x-ray did not reveal any evidence of pneumonia or other abnormality. I refer you to the EMR for further details. HPI: 73 year old Male arrives for evaluation of abnormal outpatient testing.. Outpatient testing was done this afternoon due to persisting right flank pain since the time of his urologic stent surgery 2 weeks ago. Patient was found to have right perinephric hematoma. He was mildly anemic on his CBC. the patient also notes the following associated symptoms, poor appetite, cough. The patient has found no relieving factors. Current pain is rated as 6/10. Patient denies any trauma. No bruising. Pt denies LOC, headache, fevers, chills, diaphoresis, visual changes, neck pain, chest pain, breathing difficulties, nausea, vomiting, melena, hematochezia, urinary symptoms, numbness, weakness, lymphadenopathy, rash, or other complaints.. PAST MEDICAL HISTORY: See Below, A-fib PAST SURGICAL HISTORY: See Below, SOCIAL HISTORY: See Below, HOME MEDICATIONS: See Below ALLERGIES: See Below VITALS: See Below PHYSICAL EXAMINATION: GENERAL: Awake, alert, uncomfortable-appearing, in no distress HENT: Normocephalic, atraumatic. Oropharynx unremarkable. EYES: Mildly pale conjunctiva. Sclera non-icteric. NECK: Inspection normal. Non-tender. Supple. No nuchal rigidity. FROM. No masses. RESPIRATORY: Clear to auscultation. No wheezes. No rales. Normal respiratory effort. CARDIAC: Normal rate. Normal rhythm. No murmurs. No rubs. Extremities warm and well perfused. Pulses equal. No JVD. GI: Soft, non-distended. Mild right flank tenderness to palpation. No rebound or guarding. No masses. RECTAL: Deferred. MUSCULOSKELETAL: Atraumatic. Chest examination reveals no tenderness. The back is symmetrical on inspection without obvious abnormality. There is right CVA tenderness to palpation. No joint edema. LOWER EXTREMITIES: Calves are equal size bilaterally and non-tender. No edema. No discoloration. NEURO: Normal sensorium. No sensory or motor deficits noted. SKIN: No rash or jaundice noted. PROCEDURES: none CRITICAL CARE: none OBSERVATION NOTE: none Past Med/Surg History Problem List (Updated 09/01/24 @ 20:18 by Beto White MD) Perinephric hematoma (Acute) Upper respiratory infection Pre-operative cardiovascular examination, myocardial ischemia Abnormal cardiovascular stress test 04/05/24 stress: development of flat to downsloping ST segment depressions, development of afib with RVR; this was followed by a Cardiac CT/FFR Coronary Arteries which showed moderate CAD (non-hemodynamically significant) and nonobstructive disease in Left coronary arteries Hydronephrosis Elevated serum creatinine Skin lesion of face Prediabetes Bladder mass Anemia Bladder wall thickening Chronic back pain Gastroesophageal reflux disease BPH (benign prostatic hyperplasia) Followed by Urology Hypertension Hyperlipidemia Medical History (Updated 09/01/24 @ 20:18 by Beto White MD) Elevated serum creatinine per Urology, pt with 'significant outlet obstruction'; creat remains slightly elevated Abnormal cardiovascular stress test 04/05/24 stress: development of flat to downsloping ST segment depressions, development of afib with RVR; this was followed by a Cardiac CT/FFR Coronary Arteries which showed moderate CAD (non-hemodynamically significant) and nonobstructive disease in Left coronary arteries Hyperlipidemia GERD (gastroesophageal reflux disease) Chronic back pain BPH (benign prostatic hyperplasia) Bladder mass History of anemia Hypertension CRAWFORD (dyspnea on exertion) mild Prediabetes diet and exercise Cervicalgia History of bladder stone History of prostate cancer (~2021) radiation tx completed Chronic obstructive pulmonary disease History of asthma As child Bronchospasm Remote hx- pt "unsure of any details, doesn't remember this at all" Degenerative disc disease Hearing deficit B/L hearing loss - no BLISS's Atrial fibrillation pt had afib with RVR during stress test 04/05/24, currently on Eliquis Surgical History History of cystoscopy cysto, stent 04/15/24 [facility]: MAC without issue Hx of bilateral cataract extraction Hx of knee surgery R/L (1970s) Hx of arthroscopy of right knee History of transurethral resection of bladder tumor (TURBT) S/P left knee arthroscopy History of esophagogastroduodenoscopy (EGD) History of tonsillectomy Hx of colonoscopy Hx of hernia repair B/L inguinal hernia Family History Brother , age 65 Cancer Father , age 77 Cerebral aneurysm Mother , age 72 Lung cancer COPD (chronic obstructive pulmonary disease) Other Family history non-contributory No family history of adverse response to anesthesia Denies family history of Ovarian cancer Prostate cancer Diabetes Myocardial infarction Breast cancer Colorectal cancer Stroke Social History Smoking Status: Former smoker Tobacco Type: Cigarettes Age Started Using Tobacco: 19; Age Quit Using Tobacco: 35; packs per day: 1; Second Hand Exposure: Yes (hx growing up); Do You Dip or Chew Tobacco: No; Hx Alcohol Use: Yes Alcohol type: beer Alcohol Intake Frequency: Monthly or Less Hx Substance Use: No Preferred Language: Faroese Communication Ability: Effective Visual Impairment: No Limitations Hearing Ability: Hard of Hearing Hearing Care Practitioner Required: No Beliefs That Will Affect Care: None marital status: Current Living Situation: Spouse current occupational status: retired current occupation: retired from [email or web address] How many Children do You have: 2 Feels Safe at Home: Yes Childhood Exposure to Second-Hand Smoke: Yes Diet: regular caffeine: Yes (Pepsi at least 2 liters/day) during the past year weight has: remained stable Dental Care, Regularly: Yes Physical Activity Frequency: Daily Physical Activity Frequency Comment: sking/four wheeling/active lifestyle Seatbelt Use: always Sunscreen Use: Yes Do you think of yourself as: straight/heterosexual Assistive Devices: None Allergies Allergies Allergy/AdvReac Type Severity Reaction Status Date / Time No Known Drug Allergies Allergy Verified 08/16/24 11:59 Home Meds Home Medications Medication Instructions Recorded Confirmed cholecalciferol (vitamin D3) 25 25 mcg PO QAM 01/24/22 08/16/24 mcg (1,000 unit) capsule vitamin E acetate 100 unit capsule 100 unit PO QAM 04/15/24 08/16/24 Previous Rx's Medication Instructions Recorded metoprolol succinate 25 mg 25 mg PO QAM #90 tabs 04/28/24 tablet,extended release 24 hr tamsulosin 0.4 mg capsule 0.8 mg (2 x 0.4 mg) PO HS #180 caps 04/28/24 oxybutynin chloride 5 mg tablet 5 mg PO TID PRN bladder spasms #30 05/10/24 tabs apixaban 5 mg tablet (Eliquis) See Rx Instructions .Route 06/09/24 .COMPLEX #180 tabs pantoprazole 40 mg tablet,delayed 40 mg PO QAM #90 tabs 07/23/24 release ampicillin 500 mg capsule 500 mg PO TID #30 caps 08/16/24 phenazopyridine 200 mg tablet 200 mg PO Q8H PRN pain #10 tabs 08/16/24 (Pyridium) atorvastatin 20 mg tablet (Lipitor) 20 mg PO QAM #90 tabs 08/26/24 losartan 100 mg tablet (Cozaar) 100 mg PO HS #90 tabs 08/31/24 levofloxacin 500 mg tablet 500 mg PO DAILY #10 tabs 09/01/24 Results & Data (ED) Vital Signs Vital Signs - 24 hr 09/01/24 18:19 09/01/24 18:33 Temperature 36.9 C Temperature Source Oral Pulse Rate 74 74 Respiratory Rate 20 Respiratory Effort / Characteristics Non-Labored Spontaneous Respiratory Depth Normal Respiratory Pattern Regular Blood Pressure 143/77 H Blood Pressure Mean 99 Pulse Oximetry 96 Oxygen Delivery Method Room Air Sepsis Recent Fever Within 48 Hours No Sepsis New/Unexplained Change in Mental Status No Sepsis Action Taken by Nursing No Action Required Laboratory Data 09/01/24 18:36 09/01/24 18:36 Lab Results 09/01/24 09/01/24 Range/Units 18:36 18:48 WBC 9.25 (4.8-10.8) K/ul RBC 3.48 L (4.70-6.10) M/uL Hgb 10.7 L (14.0-18.0) g/dl Hct 32.3 L (42.0-52.0) % MCV 92.8 (80.0-100.0) fL MCH 30.7 (25.0-34.0) pg MCHC 33.1 (32.0-36.0) g/dL RDW Std Deviation 43.8 (36.4-46.3) fL RDW Coeff of Gwyn 12.8 (11.5-14.5) % Plt Count 567 H (130-400) K/uL MPV 9.8 (9.4-12.4) fL Immature Gran % (Auto) 0.2 % Neut % (Auto) 76.2 % Lymph % (Auto) 9.2 % [place] % (Auto) 12.5 % Eos % (Auto) 0.9 % Baso % (Auto) 1.0 % Neut # (Auto) 7.05 H (1.40-6.50) K/uL Lymph # (Auto) 0.85 L (1.20-3.40) K/uL [place] # (Auto) 1.16 H (0.11-0.59) K/uL Eos # (Auto) 0.08 (0.00-0.50) K/uL Baso # (Auto) 0.09 (0.00-0.20) K/uL Immature Gran # (Auto) 0.02 (0.01-0.20) K/uL PT 12.4 H (9.0-12.0) Seconds INR 1.2 H (0.9-1.1) APTT 28 (21-31) Seconds PTT Ratio 1.0 Sodium 137 (136-145) mmol/L Potassium 4.2 (3.5-5.1) mmol/L Chloride 103 (98-107) mmol/L Carbon Dioxide 29 (21-32) mmol/L Anion Gap 5 (3-11) BUN 25 H (6-23) mg/dl Creatinine 1.95 H (0.6-1.4) mg/dl Est Cr Clr Drug Dosing 35.9 ml/min eGFR 35.66 BUN/Creatinine Ratio 12.8 (10-20) Glucose 127 H (70-99(Fasting)) mg/dl Calcium 8.8 (8.6-10.3) mg/dl Total Bilirubin 0.4 (0.2-1.0) mg/dl AST 81 H (13-39) U/L ALT 109 H (7-52) U/L Alkaline Phosphatase 173 H (34-104) U/L Total Protein 7.7 (6.0-8.3) gm/dl Albumin 3.2 L (3.4-5.0) gm/dl Globulin 4.5 H (2.5-4.0) gm/dl Albumin/Globulin Ratio 0.7 L (0.9-2) Blood Type B Positive Antibody Screen NEGATIVE Administered Medications Hydromorphone HCl (Hydromorphone Inj 0.5 Mg/0.5 Ml Syr) 0.5 mg IV Q15M PRN PRN Reason: Pain Stop: 09/15/24 19:00 Last Admin: 09/01/24 19:29 Dose: 0.5 mg Documented By: YENNY Discontinued Medications Ondansetron HCl (Ondansetron Inj 2 Mg/Ml 2 Ml Vial) 4 mg IV NOW STA Stop: 09/01/24 19:02 Last Admin: 09/01/24 19:29 Dose: 4 mg Documented By: YENNY Discharge Plan Visit Data Chief Complaint: Abnormal Labs/Diagnostic Testing Stated Complaint: BLOOD COUNT ABN ED Provider: Beto White Discharge Problem: Perinephric hematoma Forms Stand Alone Forms: My [facility] Prescriptions Prescriptions: No Action cholecalciferol (vitamin D3) 25 mcg (1,000 unit) capsule 25 mcg PO QAM Rx Instructions: out of tablets at this time tamsulosin 0.4 mg capsule 0.8 mg PO HS Qty: 180 3RF metoprolol succinate 25 mg tablet extended release 24 hr 25 mg PO QAM Qty: 90 3RF Eliquis 5 mg tablet See Rx Instructions .ROUTE .COMPLEX Qty: 180 0RF Dose Instruction: TAKE 1 TABLET BY MOUTH TWICE A DAY Rx Instructions: TAKE 1 TABLET BY MOUTH TWICE A DAY pantoprazole 40 mg tablet,delayed release (DR/EC) 40 mg PO QAM Qty: 90 3RF atorvastatin [Lipitor] 20 mg tablet 20 mg PO QAM Qty: 90 3RF losartan [Cozaar] 100 mg tablet 100 mg PO HS Qty: 90 3RF oxybutynin chloride 5 mg tablet 5 mg PO TID PRN (Reason: bladder spasms) Qty: 30 5RF levofloxacin 500 mg tablet 500 mg PO DAILY Qty: 10 0RF vitamin E acetate 100 unit Capsule 100 unit PO QAM phenazopyridine [Pyridium] 200 mg tablet 200 mg PO Q8H PRN (Reason: pain) Qty: 10 0RF ampicillin 500 mg capsule 500 mg PO TID Qty: 30 0RF Referrals Referrals: Uri Hand DO [Primary Care Provider] -
[2024-09-01] MEDS ORDERED: MELATONIN 3 MG TAB PO PRN (22:15)
[2024-09-01] MEDS ORDERED: POLYETHYLENE (MIRALAX) 17 GM PACK PO PRN (22:15)
[2024-09-01] MEDS ORDERED: ONDANSETRON INJ 2 MG/ML 2 ML VIAL IV PRN (22:15)
[2024-09-01] MEDS: LACTATED RINGER'S 1,000 ML IV SCH (22:33)
[2024-09-01 22:40] LABS: Appearance Urine Turbid (Clear); Bacteria Urine Automated 3+ (None Seen); Bilirubin Urine Negative (Negative); Blood Urine 3+ (Negative); Color Urine Yellow; Glucose Urine UA Negative (Negative); Ketones Urine Negative (Negative); Leukocyte Esterase Urine 3+ (Negative); Nitrite Urine Positive (Negative); Protein Urine 2+ (Negative); RBC Urine Automated >20 /hpf (0-2); Specific Gravity Urine 1.019 (1.000-1.030); Urobilinogen Urine Negative (Negative); WBC Urine Automated >50 /hpf (0-5); pH Urine 5.5 (4.5-7.5)
[2024-09-01] MEDS ORDERED: HYDROmorphone INJ 0.5 MG/0.5 ML SYR IV PRN (22:43)
[2024-09-01] MEDS: TAMSULOSIN HCL 0.4 MG CAP PO SCH (23:05)
--- NOTE | 2024-09-01 23:49 | Billing Data ---
Date of Service September 01, 2024 Coding Level of Care Code 87698 INT INP/OBS CARE
[2024-09-02 00:30] LABS: Basophils # (auto) 0.11 K/uL (0.00-0.20); Basophils % (auto) 1.2 %; Eosinophils # (auto) 0.08 K/uL (0.00-0.50); Eosinophils % (auto) 0.9 %; Hematocrit (blood only) 29.5 % (42.0-52.0); Hemoglobin 9.4 g/dl (14.0-18.0); Immature Granulocytes # (auto) 0.03 K/uL (0.01-0.20); Immature Granulocytes % (auto) 0.3 %; Lymphocytes # (auto) 1.18 K/uL (1.20-3.40); Mean Corpuscular Hemoglobin 29.5 pg (25.0-34.0); Mean Corpuscular Hgb Conc 31.9 g/dL (32.0-36.0); Mean Corpuscular Volume 92.5 fL (80.0-100.0); Mean Platelet Volume 9.5 fL (9.4-12.4); Monocytes # (auto) 1.42 K/uL (0.11-0.59); Monocytes % (auto) 15.6 %; Neutrophils # (auto) 6.27 K/uL (1.40-6.50); Platelet Count 448 K/uL (130-400); RDW Standard Deviation 44.3 fL (36.4-46.3); Red Blood Count 3.19 M/uL (4.70-6.10); White Blood Count 9.09 K/ul (4.8-10.8)
[2024-09-02] MEDS: cefTRIAXone SODIUM 2,000 MG/50 ML BAG IV SCH (00:39)
[2024-09-02] MEDS: HYDROmorphone INJ 0.5 MG/0.5 ML SYR IV PRN (00:55)
[2024-09-02 06:34] LABS: Basophils # (auto) 0.11 K/uL (0.00-0.20); Basophils % (auto) 1.2 %; Eosinophils # (auto) 0.13 K/uL (0.00-0.50); Eosinophils % (auto) 1.4 %; Hematocrit (blood only) 29.9 % (42.0-52.0); Hemoglobin 9.8 g/dl (14.0-18.0); Immature Granulocytes # (auto) 0.03 K/uL (0.01-0.20); Immature Granulocytes % (auto) 0.3 %; Lymphocytes # (auto) 1.07 K/uL (1.20-3.40); Lymphocytes % (auto) 11.6 %; Mean Corpuscular Hemoglobin 30.2 pg (25.0-34.0); Mean Corpuscular Hgb Conc 32.8 g/dL (32.0-36.0); Mean Corpuscular Volume 92.3 fL (80.0-100.0); Mean Platelet Volume 9.8 fL (9.4-12.4); Monocytes # (auto) 1.33 K/uL (0.11-0.59); Monocytes % (auto) 14.4 %; Neutrophils # (auto) 6.58 K/uL (1.40-6.50); Neutrophils % (auto) 71.1 %; Platelet Count 512 K/uL (130-400); RDW Coefficient of Variation 12.9 % (11.5-14.5); RDW Standard Deviation 43.9 fL (36.4-46.3); Red Blood Count 3.24 M/uL (4.70-6.10); White Blood Count 9.25 K/ul (4.8-10.8)
[2024-09-02 06:50] LABS: Albumin Globulin Ratio 0.7 (0.9-2); Albumin Level 2.8 gm/dl (3.4-5.0); BUN Creatinine Ratio 12.4 (10-20); Bilirubin,Total 0.5 mg/dl (0.2-1.0); Calcium 8.4 mg/dl (8.6-10.3); Creatinine Clr Calc Pharmacy 39.6 ml/min; Potassium 3.9 mmol/L (3.5-5.1); Total Protein 6.8 gm/dl (6.0-8.3)
--- NOTE | 2024-09-02 07:51 | Urology Consultation ---
Date of Consultation September 02, 2024 Assessment & Plan (1) Perinephric hematoma: (2) Hydronephrosis: Plan 73yo/M with a history of prostate cancer s/p radiation and recent TURP procedure on 08/16/[address] Frankel admitted with outpatient CT findings showing a perinephric hematoma. - CT reviewed- 10cm large hematoma within the right renal sinus, right ureteral stent in place, and mild left hydronephrosis without renal or ureteral calculi. - He is afebrile with stable vitals at present - Labs today reviewed - WBC 9.91, Hemoglobin stable 10.1, Creatinine 1.77 - Urine culture pending - He is voiding spontaneously, denies hematuria. - No plan for urological intervention. - Continue supportive care and antibiotics. - Continue to trend labs/serial H&H. - Monitor urine output. Bladder scan PRN. Continue tamsulosin. - Anticoagulation on hold. - Urology will follow. Please call with any questions/concerns. Plan reviewed with Dr. Frankel. History of Present Illness Attending Physician: Nasir Crawford MD History of Present Illness 73 year old male with a hx of prostate cancer s/p radiation who presented to the ED at the direction of our office due to findings of a right perinephric hematoma found on CT imaging. He is recently s/p Cystoscopy with Urethral dilation, Right retrograde pyelogram and exchange of right stent, Transurethral resection of the prostate mass with Dr. Frankel on 08/16/24. Post-surgical pathology did not show signs of malignancy. Per notes patient has felt generally weak and fatigued over the last 2 weeks and has had no appetite so much so that he has lost 10 lbs. He also reported right sided flank pain since his procedure that is tender to palpation. He underwent CT imaging which demonstrated a right renal hematoma and was directed to the ED. On arrival he was afebrile and hemodynamically stable. Patient was mildly anemic. Hemoglobin was rechecked and no significant drop noted. Patient was given IV Dilaudid and Zofran. He was admitted to medicine service. CT abdomen pelvis- 1. A right ureteral stent is in place. New from the 07/21/2024 renal ultrasound there is a large hematoma which appears to be centered within the right renal sinus measuring up to approximately 10 cm. This results in associated thinning of the adjacent renal cortex. 2. Mild left-sided hydronephrosis without renal or ureteral calculi identified. 3. Unchanged appearance of the urinary bladder. 4. Nonspecific anorectal wall thickening again noted. This could be correlated with colonoscopy if further clinical concern. 5. Colonic diverticulosis. Patient seen at bedside today. Awake, sitting up in bed on arrival. No acute distress. He reports an improvement in his right-sided pain. No f/c/n/v. Voiding spontaneously. Reports some frequency and leakage. No hematuria or dysuria. Has been NPO. Allergies Allergy/AdvReac Type Severity Reaction Status Date / Time No Known Drug Allergies Allergy Verified 09/02/24 08:34 Home Medications Medication Instructions Recorded Confirmed Type cholecalciferol (vitamin D3) 25 25 mcg PO QAM 01/24/22 09/02/24 History mcg (1,000 unit) capsule vitamin E acetate 100 unit capsule 100 unit PO QAM 04/15/24 09/02/24 History metoprolol succinate 25 mg 25 mg PO QAM #90 tabs 04/28/24 09/02/24 Rx tablet,extended release 24 hr tamsulosin 0.4 mg capsule 0.8 mg (2 x 0.4 mg) PO HS #180 caps 04/28/24 09/02/24 Rx oxybutynin chloride 5 mg tablet 5 mg PO TID PRN bladder spasms #30 05/10/24 09/02/24 Rx tabs pantoprazole 40 mg tablet,delayed 40 mg PO QAM #90 tabs 07/23/24 09/02/24 Rx release atorvastatin 20 mg tablet (Lipitor) 20 mg PO QAM #90 tabs 08/26/24 09/02/24 Rx losartan 100 mg tablet (Cozaar) 100 mg PO HS #90 tabs 08/31/24 09/02/24 Rx levofloxacin 500 mg tablet 500 mg PO DAILY #10 tabs 09/01/24 09/01/24 Rx apixaban 5 mg tablet (Eliquis) 5 mg PO BID 09/02/24 09/02/24 History Patient History Medical History Elevated serum creatinine per Urology, pt with 'significant outlet obstruction'; creat remains slightly elevated Abnormal cardiovascular stress test 04/05/24 stress: development of flat to downsloping ST segment depressions, development of afib with RVR; this was followed by a Cardiac CT/FFR Coronary Arteries which showed moderate CAD (non-hemodynamically significant) and nonobstructive disease in Left coronary arteries Hyperlipidemia GERD (gastroesophageal reflux disease) Chronic back pain BPH (benign prostatic hyperplasia) Bladder mass History of anemia Hypertension CRAWFORD (dyspnea on exertion) mild Prediabetes diet and exercise Cervicalgia History of bladder stone History of prostate cancer (~2021) radiation tx completed Chronic obstructive pulmonary disease History of asthma As child Bronchospasm Remote hx- pt "unsure of any details, doesn't remember this at all" Degenerative disc disease Hearing deficit B/L hearing loss - no BLISS's Atrial fibrillation pt had afib with RVR during stress test 04/05/24, currently on Eliquis Surgical History History of cystoscopy cysto, stent 04/15/24 [facility]: MAC without issue Hx of bilateral cataract extraction Hx of knee surgery R/L (1970s) Hx of arthroscopy of right knee History of transurethral resection of bladder tumor (TURBT) S/P left knee arthroscopy History of esophagogastroduodenoscopy (EGD) History of tonsillectomy Hx of colonoscopy Hx of hernia repair B/L inguinal hernia Family History Brother , age 65 Cancer Father , age 77 Cerebral aneurysm Mother , age 72 Lung cancer COPD (chronic obstructive pulmonary disease) Other Family history non-contributory No family history of adverse response to anesthesia Denies family history of Ovarian cancer Prostate cancer Diabetes Myocardial infarction Breast cancer Colorectal cancer Stroke Social History Smoking Status: Never smoker Tobacco Type: Cigarettes Age Started Using Tobacco: 19; Age Quit Using Tobacco: 35; packs per day: 1; Second Hand Exposure: Yes (hx growing up); Do You Dip or Chew Tobacco: No; Hx Alcohol Use: No Hx Substance Use: No Preferred Language: Sammarinese Communication Ability: Effective Visual Impairment: No Limitations Hearing Ability: Hard of Hearing First Grade Teacher Required: No Beliefs That Will Affect Care: None marital status: Current Living Situation: Spouse current occupational status: retired current occupation: retired from [employer] How many Children do You have: 2 Feels Safe at Home: Yes Safety Concerns: Feels Safe At This Time Childhood Exposure to Second-Hand Smoke: Yes Diet: regular caffeine: Yes (Pepsi at least 2 liters/day) during the past year weight has: remained stable Dental Care, Regularly: Yes Physical Activity Frequency: Daily Physical Activity Frequency Comment: sking/four wheeling/active lifestyle Seatbelt Use: always Sunscreen Use: Yes Do you think of yourself as: straight/heterosexual Assistive Devices: None Review of Systems Review of Systems: All systems reviewed & are unremarkable except as noted in HPI & below Physical Exam Constitutional: no acute distress Respiratory: no respiratory distress and no labored breathing Musculoskeletal: Head/Neck/Chest: normocephalic Skin: No visible rashes or lesions to exposed skin areas Neurologic: moves all extremities and awake Psychiatric: A+Ox3, euthymic affect Results & Data Vital Signs (Past 12 Hours) Vital Signs Temp Pulse Pulse Resp BP BP BP 09/02/24 07:35 37.0 C 75 18 118/69 09/02/24 07:21 71 09/02/24 03:39 37.4 C 70 16 114/64 09/02/24 00:10 85 09/01/24 23:36 09/01/24 22:16 37.7 C H 84 16 143/64 H 09/01/24 21:30 76 17 09/01/24 20:52 72 16 127/71 Pulse Ox O2 Del Method 09/02/24 07:35 90 Room Air 09/02/24 07:21 09/02/24 03:39 93 Room Air 09/02/24 00:10 09/01/24 23:36 Room Air 09/01/24 22:16 93 Room Air 09/01/24 21:30 95 Room Air 09/01/24 20:52 98 Room Air PG Care Time/CCT Total # of Minutes Spent Total Time Spent with Patient: Total time spent is greater than 50% in coordination of care (as documented) at patient's floor/unit and/or counseling patient: Coding Level of Care Code 13846 INT INP/OBS CARE 2/55MIN Diagnoses Perinephric hematoma S37.019A Hydronephrosis N13.30
--- NOTE | 2024-09-02 08:01 | Hospitalist Progress Note ---
Date of Service September 02, 2024 Assessment & Plan (1) Perinephric hematoma: Plan: Girish is a 73M w/ PMH of prediabetes, AFib, bladder mass, anemia, back pain, GERD, BPH, HTN, and HLD who presents for abnormal labs and imaging noted outpatient. Perinephric Hematoma - S/p TURP 08/16 w/ complications requiring stent placement for scarring/strictures - CTAP 09/01 indicating right perinephric hematoma ~ 10 cm and left hydronephrosis - Hgb reduced to 10.3 from baseline 12 concern for acute blood loss anemia - On chronic Eliquis for AFib, held on admission - Acute kidney injury with concern for obstructive uropathy vs volume loss from blood loss and ATN Continues to urinate regularly w/o hematuria, patient preference to avoid Hui at this time - Bladder Spasms - hold oxybutynin d/t AISSATOU, continue Pyridium/tamsulosin (2) Hypertension: Plan: hold CHANTEL-I d/t AISSATOU, continue Metoprolol atrial fibrillation , continue metoprolol for rate control and hold eliquis with acute blood loss anemia and hematoma Plan Chronic Conditions: - HLD - hold Atorvastatin - GERD - continue Pantoprazole Code: Full DVT: Ambulation Diet: NPO pending Urology Admission and Anticipated Discharge Date Admission Date: September 01, 2024 Results & Data Results & Data Vital Signs (Past 12 Hours) Vital Signs Temp Pulse Pulse Resp BP BP BP 09/02/24 07:35 98.6 F 75 18 118/69 09/02/24 07:21 71 09/02/24 03:39 99.3 F 70 16 114/64 09/02/24 00:10 85 09/01/24 23:36 09/01/24 22:16 99.9 F H 84 16 143/64 H 09/01/24 21:30 76 17 09/01/24 20:52 72 16 127/71 Pulse Ox O2 Del Method 09/02/24 07:35 90 Room Air 09/02/24 07:21 09/02/24 03:39 93 Room Air 09/02/24 00:10 09/01/24 23:36 Room Air 09/01/24 22:16 93 Room Air 09/01/24 21:30 95 Room Air 09/01/24 20:52 98 Room Air PG Care Time/CCT Total # of Minutes Spent Total Time Spent with Patient: Total time spent is greater than 50% in coordination of care (as documented) at patient's floor/unit and/or counseling patient: Coding Diagnoses Perinephric hematoma S37.019A Hypertension I10
[2024-09-02] MEDS: PANTOprazole 40 MG TAB PO SCH (08:17)
[2024-09-02] MEDS: METOPROLOL SUCC 25MG EXT REL TAB PO SCH (08:17)
[2024-09-02] MEDS: PHENAZOPYRIDINE HCL 200 MG TAB PO PRN (08:17)
--- NOTE | 2024-09-02 12:15 | Hospitalist Progress Note ---
Date of Service September 02, 2024 Assessment & Plan (1) Perinephric hematoma: Plan: S/p TURP 08/16 with complications, requiring stent placement for scarring/strictures - CTAP 09/01 indicating right perinephric hematoma ~ 10 cm and left hydronephrosis - Acute blood loss anemia with Hgb reduced to 10.3 from baseline 12. Hgb stable not requiring blood transfusion - On chronic Eliquis for A Fib, held on admission - Acute kidney injury with concern for obstructive uropathy vs volume loss from blood loss and ATN > Continues to urinate regularly w/o hematuria, patient preference to avoid Hui at this time - UA positive on admission, urine culture pending. > Continue Ceftriaxone. Downgrade antibiotic once culture sensitivities are posted - Bladder Spasms - hold oxybutynin d/t AISSATOU, continue Pyridium/tamsulosin - Urology consulted > No urological intervention. Monitor urine output. Bladder scan as needed. Continue supportive care and antibiotics. (2) Hypertension: Plan: Hold CHANTEL-I due to AISSATOU Continue Metoprolol BPs have been stable. Continue to monitor Atrial fibrillation - Continue metoprolol for rate control - Hold Eliquis in setting of acute blood loss anemia and hematoma Plan Updated at bedside Chronic Conditions: - HLD - hold Atorvastatin - GERD - continue Pantoprazole VTE PPx: Ambulation CODE STATUS: Full code Admission and Anticipated Discharge Date Admission Date: September 01, 2024 Subjective Patient seen and evaluated at bedside with his present. He reports that he is feeling better today. He rates his R-sided renal pain as a 4/10 at present. He notes that he was having some urinary symptoms including burning and increased frequency a few days ago. He did have a low-grade fever overnight, but has remained afebrile today and denies chills. We discussed the current plan of continuing antibiotics/supportive measures, and that urology does not plan for any surgical intervention at this time. Patient reported he is just happy to have a diet again. No additional complaints or concerns at this time. Physical Exam Physical Exam: General: No acute distress, nondiaphoretic, well-developed, well-nourished. Pale. Skin: The skin was without rashes, erythema, edema, or bruising. Cardiac: Regular rate and rhythm without murmurs gallops or rubs. Pulm: Clear to auscultation bilaterally without wheezes, rales or rhonchi. No respiratory distress. 98% on room air. Abdominal: Soft, nondistended, nontender. Bowel sounds present. Neuro: A&O x3. No focal neurological deficits. Results & Data Results & Data Vital Signs (Past 12 Hours) Vital Signs Temp Pulse Pulse Resp BP BP Pulse Ox 09/02/24 11:26 99.3 F 88 18 112/72 98 09/02/24 08:06 09/02/24 07:35 98.6 F 75 18 118/69 90 09/02/24 07:21 71 09/02/24 03:39 99.3 F 70 16 114/64 93 O2 Del Method 09/02/24 11:26 Room Air 09/02/24 08:06 Room Air 09/02/24 07:35 Room Air 09/02/24 07:21 09/02/24 03:39 Room Air Laboratory Results Reviewed CBC Reviewed BMP Reviewed UA PG Care Time/CCT Total # of Minutes Spent Total Time Spent with Patient: Total time spent is greater than 50% in coordination of care (as documented) at patient's floor/unit and/or counseling patient: Coding Level of Care Code 95775 SUB INP/OBS CARE 2/35MIN Diagnoses Perinephric hematoma S37.019A Hypertension I10
[2024-09-02 12:17] LABS: Eosinophils # (auto) 0.03 K/uL (0.00-0.50); Eosinophils % (auto) 0.3 %; Hemoglobin 10.1 g/dl (14.0-18.0); Immature Granulocytes # (auto) 0.02 K/uL (0.01-0.20); Immature Granulocytes % (auto) 0.2 %; Lymphocytes # (auto) 0.77 K/uL (1.20-3.40); Lymphocytes % (auto) 7.8 %; Mean Corpuscular Hemoglobin 29.4 pg (25.0-34.0); Mean Corpuscular Hgb Conc 31.6 g/dL (32.0-36.0); Mean Platelet Volume 9.5 fL (9.4-12.4); Monocytes % (auto) 13.1 %; Neutrophils # (auto) 7.69 K/uL (1.40-6.50); Neutrophils % (auto) 77.6 %; Platelet Count 521 K/uL (130-400); Red Blood Count 3.44 M/uL (4.70-6.10); White Blood Count 9.91 K/ul (4.8-10.8)
[2024-09-02 18:43] LABS: Basophils # (auto) 0.11 K/uL (0.00-0.20); Basophils % (auto) 1.2 %; Eosinophils # (auto) 0.08 K/uL (0.00-0.50); Eosinophils % (auto) 0.8 %; Hemoglobin 10.1 g/dl (14.0-18.0); Immature Granulocytes # (auto) 0.03 K/uL (0.01-0.20); Immature Granulocytes % (auto) 0.3 %; Lymphocytes # (auto) 1.25 K/uL (1.20-3.40); Lymphocytes % (auto) 13.2 %; Mean Corpuscular Hemoglobin 29.5 pg (25.0-34.0); Mean Corpuscular Hgb Conc 31.6 g/dL (32.0-36.0); Mean Corpuscular Volume 93.6 fL (80.0-100.0); Mean Platelet Volume 9.5 fL (9.4-12.4); Monocytes % (auto) 12.7 %; Neutrophils % (auto) 71.8 %; Platelet Count 487 K/uL (130-400); RDW Coefficient of Variation 12.8 % (11.5-14.5); RDW Standard Deviation 44.2 fL (36.4-46.3); Red Blood Count 3.42 M/uL (4.70-6.10); White Blood Count 9.47 K/ul (4.8-10.8)
[2024-09-03 06:18] LABS: Hemoglobin 9.8 g/dl (14.0-18.0); Mean Corpuscular Hemoglobin 29.9 pg (25.0-34.0); Mean Corpuscular Hgb Conc 32.7 g/dL (32.0-36.0); Mean Corpuscular Volume 91.5 fL (80.0-100.0); Platelet Count 465 K/uL (130-400); RDW Coefficient of Variation 12.8 % (11.5-14.5); RDW Standard Deviation 42.9 fL (36.4-46.3); Red Blood Count 3.28 M/uL (4.70-6.10); White Blood Count 9.39 K/ul (4.8-10.8)
[2024-09-03 06:25] LABS: BUN Creatinine Ratio 11.9 (10-20); Calcium 8.6 mg/dl (8.6-10.3); Creatinine Clr Calc Pharmacy 36.1 ml/min; Potassium 4.1 mmol/L (3.5-5.1)
[2024-09-03 07:32] VITALS: RESP 18
--- NOTE | 2024-09-03 09:28 | Hospitalist Progress Note ---
Date of Service September 03, 2024 Assessment & Plan (1) Perinephric hematoma: Plan: S/p TURP 08/16 with complications, requiring stent placement for scarring/strictures - CTAP 09/01 indicating right perinephric hematoma ~ 10 cm and left hydronephrosis - Acute blood loss anemia with Hgb reduced to 10.3 on admission, from baseline of 12. Hgb stable not requiring blood transfusion - On chronic Eliquis for A Fib, held on admission - Acute kidney injury with concern for obstructive uropathy vs volume loss from blood loss and ATN > Continues to urinate regularly w/o hematuria, patient preference to avoid Hui at this time - UA positive on admission, urine culture growing gram negative bacilli > Continue Ceftriaxone. Downgrade antibiotic once culture sensitivities are posted - Bladder Spasms - hold oxybutynin d/t AISSATOU, continue Pyridium/tamsulosin - Urology consulted > No urological intervention. Monitor urine output. Bladder scan as needed. Continue supportive care and antibiotics. (2) Hypertension: Plan: Hold CHANTEL-I due to IASSATOU Continue Metoprolol BPs have been stable. Continue to monitor Atrial fibrillation - Continue metoprolol for rate control - Hold Eliquis in setting of acute blood loss anemia and hematoma Plan Chronic Conditions: - HLD - hold Atorvastatin - GERD - continue Pantoprazole VTE PPx: Ambulation CODE STATUS: Full code Admission and Anticipated Discharge Date Admission Date: September 01, 2024 Subjective Patient seen and evaluated at bedside. He reports feeling better today, noting that his right flank pain is improved compared to yesterday. He does report urinary incontinence throughout the day. He further notes that his mental health is declining here and he is anxious to be discharged. We discussed that his urine culture is still pending, showing gram-negative bacilli. Hopefully the sensitivities are resulted tomorrow and he can be discharged on oral antibiotics. No additional complaints or concerns at this time. Physical Exam Physical Exam: General: No acute distress, nondiaphoretic, well-developed, well-nourished. Pale. Skin: The skin was without rashes, erythema, edema, or bruising. Cardiac: Regular rate and rhythm without murmurs gallops or rubs. Pulm: Clear to auscultation bilaterally without wheezes, rales or rhonchi. No respiratory distress. 95% on room air. Abdominal: Soft, nondistended, nontender. Bowel sounds present. Neuro: A&O x3. No focal neurological deficits. Results & Data Results & Data Vital Signs (Past 12 Hours) Vital Signs Temp Pulse Pulse Resp BP BP Pulse Ox 09/03/24 08:09 09/03/24 07:31 98.4 F 73 18 128/75 95 09/03/24 07:18 64 09/03/24 03:47 98.8 F 80 16 116/72 93 09/02/24 23:49 72 09/02/24 23:32 98.8 F 82 16 114/63 91 O2 Del Method 09/03/24 08:09 Room Air 09/03/24 07:31 Room Air 09/03/24 07:18 09/03/24 03:47 Room Air 09/02/24 23:49 09/02/24 23:32 Room Air Laboratory Results Reviewed CBC Reviewed BMP Reviewed urine culture PG Care Time/CCT Total # of Minutes Spent Total Time Spent with Patient: Total time spent is greater than 50% in coordination of care (as documented) at patient's floor/unit and/or counseling patient: Coding Level of Care Code 04391 SUB INP/OBS CARE 2/35MIN Diagnoses Perinephric hematoma S37.019A Hypertension I10
--- NOTE | 2024-09-03 12:30 | Urology Progress Note ---
Date of Service September 03, 2024 Assessment & Plan (1) Perinephric hematoma: (2) Hydronephrosis: Plan 73yo/M with a history of prostate cancer s/p radiation and recent TURP procedure on 08/16/[address] Frankel admitted with outpatient CT findings showing a perinephric hematoma. - CT reviewed- 10cm large hematoma within the right renal sinus, right ureteral stent in place, and mild left hydronephrosis without renal or ureteral calculi. - He is afebrile with stable vitals at present - Labs today reviewed - WBC 9.39, Hemoglobin stable 9.8, Creatinine 1.94 - Urine culture prelim gram negative bacilli - He is voiding spontaneously, denies hematuria. Still with incontinence. He prefers to avoid figueroa cath. - No plan for urological intervention. - Continue supportive care. - Continue antibiotics and tailor per culture sensitivities. - Continue to trend labs/H&H. - Monitor bladder scans/PVRs to ensure he is emptying. Continue tamsulosin. - Anticoagulation remains on hold. - Urology will follow. Please call with any questions/concerns or changes in patient status. Plan reviewed with Dr. Frankel. Admission and Anticipated Discharge Date Admission Date: September 01, 2024 Subjective Pt seen at bedside today Awake and sitting in bedside chair on arrival No acute distress Feeling better today Right flank/back pain improved No left flank pain or suprapubic pain He reports urinary incontinence No hematuria or dysuria Denies f/c/n/v Review of Systems Constitutional: as per Subjective / HPI Gastrointestinal: as per Subjective / HPI Genitourinary: + as per Subjective / HPI Physical Exam Constitutional: no acute distress Respiratory: no respiratory distress and no labored breathing Musculoskeletal: Head/Neck/Chest: normocephalic Neurologic: moves all extremities and awake Psychiatric: A+Ox3, euthymic affect Results & Data Vital Signs (Past 12 Hours) Vital Signs Temp Pulse Pulse Resp BP BP Pulse Ox 09/03/24 11:49 36.9 C 71 18 119/71 90 09/03/24 08:09 09/03/24 07:31 36.9 C 73 18 128/75 95 09/03/24 07:18 64 09/03/24 03:47 37.1 C 80 16 116/72 93 O2 Del Method 09/03/24 11:49 Room Air 09/03/24 08:09 Room Air 09/03/24 07:31 Room Air 09/03/24 07:18 09/03/24 03:47 Room Air PG Care Time/CCT Total # of Minutes Spent Total Time Spent with Patient: Total time spent is greater than 50% in coordination of care (as documented) at patient's floor/unit and/or counseling patient: Coding Level of Care Code 25708 SUB INP/OBS CARE 2/35MIN Diagnoses Perinephric hematoma S37.019A Hydronephrosis N13.30
[2024-09-04 02:52] VITALS: O2SAT 91
[2024-09-04 07:00] LABS: Hematocrit (blood only) 29.9 % (42.0-52.0); Hemoglobin 9.9 g/dl (14.0-18.0); Mean Corpuscular Hemoglobin 30.2 pg (25.0-34.0); Mean Corpuscular Hgb Conc 33.1 g/dL (32.0-36.0); Mean Corpuscular Volume 91.2 fL (80.0-100.0); Mean Platelet Volume 10.1 fL (9.4-12.4); Platelet Count 436 K/uL (130-400); RDW Coefficient of Variation 12.8 % (11.5-14.5); RDW Standard Deviation 42.8 fL (36.4-46.3); Red Blood Count 3.28 M/uL (4.70-6.10); White Blood Count 8.67 K/ul (4.8-10.8)
[2024-09-04 07:12] LABS: BUN Creatinine Ratio 13.3 (10-20); Calcium 8.8 mg/dl (8.6-10.3); Creatinine Clr Calc Pharmacy 40.5 ml/min; Potassium 4.5 mmol/L (3.5-5.1)
[2024-09-04 07:40] VITALS: TEMP 99
[2024-09-04] MEDS: DOCUSATE SODIUM 100 MG CAP PO SCH (08:21)
[2024-09-04 11:27] VITALS: BP 122/71; PULSE 69
--- NOTE | 2024-09-04 16:37 | Discharge Summary ---
Discharge Summary Date of Service September 04, 2024 Principal Dx & Hospital Course #1 = Principal Diagnosis (1) Perinephric hematoma: 73 y/o man with afib on apixaban who underwent TURP 08/16 with complications, requiring stent placement for scarring/strictures, admitted with perinephric hematoma - CTAP 09/01 indicating right perinephric hematoma ~ 10 cm and left hydronephrosis - Acute blood loss anemia with Hgb reduced to 10.3 on admission, from baseline of 12. did not require blood transfusion. prescribed FeSO4 qod for 4-6 weeks for anemia - On chronic Eliquis for A Fib, held on admission - Urologist consulted - Hg remained stable, apixaban still held on discharge - typically hold apx 2 weeks, reassess for resumption at next Urology appointment which is 10 days from now - Acute kidney injury on CKD-3 with concern for obstructive uropathy vs volume loss from blood loss and ATN > Continues to urinate regularly w/o hematuria, patient preference to avoid Hiu at this time > Cr improved from 1.9 to 1.6-1.7 which is his recent baseline UTI - UA positive on admission culture grew sensitive Klebsiella > treated with ceftriaxone, changed to cefadroxil x 10d on discharge - Bladder Spasms - continue Pyridium/tamsulosin (2) Hypertension: Losartan still held because of AISSATOU - reassess on primary care follow up. BPs have been normal in hospital without it Continue Metoprolol Atrial fibrillation - Continue metoprolol for rate control - apixaban held as above Notes For Next Care Provider Consider whether to resume apixaban in apx 10 days Losartan currently held, resume if BP increasing and renal function improving Medication Changes From Visit Apixaban and losartan held Cefadroxil x 10d for UTI Admission HPI Per Admitting Provider Girish is a 73M w/ PMH of prediabetes, bladder mass, anemia, back pain, GERD, BPH, HTN, and HLD who presents for abnormal labs and imaging noted outpatient. ED: [facility] HPI: Patient presented to the Urologist today for planned post-TURP follow up and was sent for CT-AP and labs due to generalized illness since his surgical procedure 08/19/24. Patient's post-operative course was complicated by scarring, strictures, and urinary obstruction. Patient currently maintains a stent on the right side. Patient notes that he has felt generally weak and fatigued over the last 2 weeks and has had no appetite or drive to drink, so much so that he has lost 10 lbs. Post-surgical pathology did not show signs of malignancy. Patient denies URI sx, fevers or congestion, but has been experiencing intermittent chills. He notes that he has had right sided flank pain since his procedure that is tender to palpation. He denies additional abdominal discomfort, nausea or emesis. He notes that he is incontinent of urine at baseline and has a high urinary frequency (he uses depends at home and prefers to avoid catheterization if possible), but that over the last two weeks his urine has been increasingly foul/strong scented and cloudy. He did require catheterization during admission for his procedure. Patient denies hematuria. Continues to move bowels regularly w/o BRBPR or melena. Discharge Exam PHYSICAL EXAMINATION Last 24h vital signs reviewed, see documentation in flowsheet General: comfortable appearing, no distress HEENT: Normocephalic, atraumatic, pupils round and equal, sclerae anicteric, no conjunctival injection, moist mucus membranes Lungs: Normal respiratory effort. Clear to auscultation bilaterally. No RRW Heart: Regular rate and rhythm, no murmurs. No JVD Abdomen: Soft, nontender, nondistended. Bowel sounds present. no back or flank tenderness Extremities: Warm, dry, well-perfused. No extremity edema. Neuro: Alert and oriented x 4, face symmetric, moves 4 extremities well Psych: Normal affect and behavior Discharge Plan Discharge Items Patient Disposition: Home - Self-Care Reason For Visit: PERINEPHRIC HEMATOMA Discharge Diagnosis: Perinephric hematoma, complicated UTI Activity: Per Instructions section Weightbearing: Full weightbearing Non-emergency contact: Primary Care Provider and Urologist Call non-emergency contact if: you have any medication questions and your symptoms worsen Follow-up/Referrals: Perry Frankel DO [Physician] - Uri Hand DO [Primary Care Provider] - Diet: Heart Healthy Addtl Attending Provider Instructions: You were treated for perinephric hematoma (bleeding around the kidney area) This is stable -continue holding your blood thinner (Eliquis/apixaban) and avoid aspirin and nsaids (naproxen, ibuprofen). It would be reasonable to resume the eliquis in approximately 10 days when you follow up with urology, if everything remains stable. Discuss with Dr. Frankel -it is safe to take acetaminophen (tylenol) as directed for pain -don't ride bicycle for two weeks and avoid lifting anything more than 10 pounds because we want to avoid movements that may aggravate the hematoma -walking is ok We are treating for UTI -take antibiotic (cefadroxil) for 10 more days We stopped oxybutynin because of urinary retention Your blood pressure has been running completely normal on metoprolol alone -hold the losartan. monitor your BP and discuss with Dr. Hand whether to resume it in the future You will benefit from an iron supplement for 4-6 weeks to help resolve your anemia -ferrous sulfate every other day You will have some low-grade fevers as a result of the hematoma. Seek medical attention if you are having high fevers >101, which could be a sign of infection Seek immediate medical attention if you have increasing back/flank/abdominal pain, lightheadedness or loss of consciousness Pending Studies at Discharge: No Stand-Alone Forms: [facility] [employer], Smoking Cessation Medications and DC Order Prescriptions: New phenazopyridine [Pyridium] 200 mg Tablet 200 mg PO Q12H PRN (Reason: urinary pain) Qty: 10 0RF cefadroxil 500 mg capsule 500 mg PO Q12H Qty: 20 0RF ferrous sulfate 325 mg (65 mg iron) tablet,delayed release (DR/EC) 325 mg PO Q OTHER DAY Qty: 20 0RF Rx Instructions: may buy over the counter Continued cholecalciferol (vitamin D3) 25 mcg (1,000 unit) capsule 25 mcg PO QAM Rx Instructions: out of tablets at this time tamsulosin 0.4 mg capsule 0.8 mg PO HS Qty: 180 3RF metoprolol succinate 25 mg tablet extended release 24 hr 25 mg PO QAM Qty: 90 3RF pantoprazole 40 mg tablet,delayed release (DR/EC) 40 mg PO QAM Qty: 90 3RF atorvastatin [Lipitor] 20 mg tablet 20 mg PO QAM Qty: 90 3RF vitamin E acetate 100 unit Capsule 100 unit PO QAM Held losartan [Cozaar] 100 mg tablet 100 mg PO HS Qty: 90 3RF Hold Instructions: Resume on 10/02/24. your BP has been normal without it. discuss with Dr. Hand whether to resume in the future Eliquis 5 mg Tablet 5 mg PO BID Hold Instructions: Resume on 09/15/24. hold at least until urology follow up appointment - discuss with Dr. Frankel if it is safe to restart at that time Discontinued oxybutynin chloride 5 mg tablet 5 mg PO TID PRN (Reason: bladder spasms) Qty: 30 5RF levofloxacin 500 mg tablet 500 mg PO DAILY Qty: 10 0RF Rx Instructions: Spouse unsure of this medication Discharge Orders: Discharge Order (Routine); Ordered 09/04/24 Ordered By: Keely To/Other Patient Handouts: Phenazopyridine Oral Tablet, Cefadroxil Oral Capsule Admission Data Admit Date/Time: 09/01/24 20:51 Attending Provider: Keely Foley Admit Provider: Sudhir Erazo Primary Care Provider: Uri Hand Other Providers: Jt Chadwick; Roxy Ojeda; Perry Frankel; Deborah Melo; Chiara Cheek; Jah Braxton; Rajani Blount; Nasir Morrow; Gena Edward; Sergio Cruz Other Interventions: Discharge Summary Assessment (RN) Last Done: 09/04/24 11:24 Hospital Stay Data Consultations 09/01/24 22:15 Consult Urology Routine Pending Results Patient Have Any Pending Studies at Discharge: No Discharge Instructions Given to Patient (Per Discharging Provider) You were treated for perinephric hematoma (bleeding around the kidney area) This is stable -continue holding your blood thinner (Eliquis/apixaban) and avoid aspirin and nsaids (naproxen, ibuprofen). It would be reasonable to resume the eliquis in approximately 10 days when you follow up with urology, if everything remains stable. Discuss with Dr. Frankel -it is safe to take acetaminophen (tylenol) as directed for pain -don't ride bicycle for two weeks and avoid lifting anything more than 10 pounds because we want to avoid movements that may aggravate the hematoma -walking is ok We are treating for UTI -take antibiotic (cefadroxil) for 10 more days We stopped oxybutynin because of urinary retention Your blood pressure has been running completely normal on metoprolol alone -hold the losartan. monitor your BP and discuss with Dr. Hand whether to resume it in the future You will benefit from an iron supplement for 4-6 weeks to help resolve your anemia -ferrous sulfate every other day You will have some low-grade fevers as a result of the hematoma. Seek medical attention if you are having high fevers >101, which could be a sign of infection Seek immediate medical attention if you have increasing back/flank/abdominal pain, lightheadedness or loss of consciousness Total Time Total Time Spent Total Time Spent (In Minutes): less than 30 minutes Coding Level of Care Code 44110 IN/OBS DISCH 30 MIN/LESS Diagnoses Perinephric hematoma S37.019A Hypertension I10
--- NOTE | 2024-09-06 15:50 | Coding Query ---
CODING QUERY To promote full compliance with coding requirements relating to patient care, provider participation is requested in all cases of home health cna uncertainty. Please assist us with the question(s) below: Coding Question(s): Pt s/p TURP and ureteral stent admitted due to abnormal CT scan - positive for periphrenic hematoma. Please document, if known or suspected, the etiology of the hematoma . Thanks for your help! Lenin [facility] Physician's Response(s): I am unable to determine the cause of the hematoma Principal Diagnosis: "that condition established after study, to be chiefly responsible for occasioning the admission of the patient to the hospital for care." Co-Existing Principal Diagnosis: "when two or more diagnoses equally meet the criteria for principal diagnosis as determined by the circumstances of admission, diagnostic work up, and/or therapy provided, and the Alphabetic Index, Tabular List, or another coding guideline does not provide sequencing direction, any one of the diagnoses may be sequenced first." "When the physician has documented what appears to be a current diagnosis in the body of the record, but has not included the diagnosis in the final diagnostic statement, the physician should be asked whether the diagnosis should be added." (Source Coding Clinic 2 QTR90. p3-4) LACI
== END 2024-09-04 13:20 | disposition home or self-care (01) | DRG 699 ==
LOC: ED 17:53 → 2N 20:51 → SUATTDRO 20:51 → 2N 22:12

== ENCOUNTER 2024-09-16 10:47 | Inpatient (IN) ==
--- NOTE | 2024-09-16 11:17 | XRay Report ---
XR chest 1V portable CLINICAL HISTORY: Sepsis TECHNIQUE: Single frontal radiograph of the chest was obtained. Comparison: Comparison is made to chest radiograph 09/15/2024 FINDINGS: No lines and tubes are seen. The cardiomediastinal silhouette is normal. The lungs are clear. No evid ence of pleural effusion or pneumothorax. IMPRESSION: No acute abnormalities and in particular no radiographic evidence of pneumonia. ACT 112: Negative or not required by law. Electronically signed by: Oscar Rod M.D. 09/16/2024 11:16 AM
--- NOTE | 2024-09-16 11:28 | Emergency Department Note ---
Impression & Plan SIRS (systemic inflammatory response syndrome), Weakness, Right flank pain, UTI (urinary tract infection), Perinephric hematoma, COVID-19 ED Provider Note NAME: RACHEAL MCCOLLUM AGE: 73 SEX: Male INFORMANT: Patient ED PROVIDER(S): Beto White MD CHIEF COMPLAINT: Weakness and infection PLAN: Disposition: Admitted Outpatient prescription management: none Referral: None MEDICAL DECISION MAKING: Patient presented because of abnormal outpatient labs. He had completed his inpatient and outpatient antibiotics. Blood work and urinalysis done yesterday was concerning for infection and elevated white blood cell count. Patient notes significant weakness. He was also diagnosed with COVID. He notes he has had symptoms since his hospitalization. Patient was placed in isolation. IV fluids were started. Chest x-ray was unremarkable. CT imaging without contrast was ordered. I discussed the patient's antibiotics and prior culture results with ED pharmacist and cefepime IV was recommended for initial treatment. CT imaging reveals less acute blood products in the perinephric hematoma but findings concerning for slight enlargement. Cannot rule out infection. Patient's blood work revealed an elevated white blood cell count. Urinalysis was concerning for infection and culture from yesterday is not resulted. He had additional antibiotic coverage with daptomycin added. Patient also had additional IV fluids administered to cover for any sepsis requirements. Chest x-ray revealed no pneumonia to suggest complication of COVID-19. Patient will need further evaluation and management in the hospital. I did consult with urology and reviewed the case with KOJO Ibarra and she did review with Dr. Braxton and Dr. Frankel. They feel the patient should be treated with antibiotics and will follow along. Consultation was made with Dr. Jin of the [facility] service. Patient was evaluated in the ER for further management. Care/management discussed with: ED pharmacist Level of care consideration(s): After review of the information above and other included data, I feel the patient requires escalation of care to admission. Triage Nursing notes: reviewed and agree them. Vital Signs: reviewed and remarkable for borderline tachycardia Additional History obtained from: Patient's notes that he has been very weak. Chronic Medical/Social Conditions affecting care: Hypertension Prior/ Outside/ External records reviewed: Discharge summary from his hospitalization during the first week of August reviewed. Patient was treated with ceftriaxone and transition to cefadroxil Differential Diagnosis: Sepsis, UTI, pneumonia, metabolic, electrolyte abnormalities, cardiac sources, intracerebral event, toxicologic, neurologic, as well as other pathologies. Diagnostics, independently interpreted by me: ECG: Twelve-lead ECG reveals sinus rhythm PACs with a nonspecific ST abnormality at [address] elevation. Cardiac Monitoring: Cardiac monitoring ordered by me: The patient was placed on continuous cardiac monitoring and observed. It revealed a sinus rhythm with PACs at 71 bpm. Medical decision rules: none Imaging studies: Chest x-ray. Findings: A chest x-ray was performed and revealed no pneumothorax, effusion, infiltrate, pulmonary edema, free air under the diaphragm, or wide mediastinum. Impression: No acute disease. CT imaging of the abdomen pelvis reveals slight enlargement of the right perinephric hematoma. Less Hyperdense material within the hematoma compared to prior. Ureteral stent in place. I refer you to the EMR for further details. HPI: 73 year old Male arrives for evaluation of weakness and infection. This started with his recent admission for a right perinephric hematoma and is progressing. Patient states he has been more more weak since treatment at discharge. He did complete his antibiotic course. His Eliquis is on hold secondary to the hematoma. Patient did follow-up with urology yesterday and they were concerned by his weakness and did blood work and urinalysis. Primary physician notified the patient that his testing results were concerning for infection and he was directed to the ER. Patient did have an elevated white blood cell count as well as findings concerning for UTI. The patient also notes the following associated symptoms, improving right flank pain. The patient has noted no relieving factors. Current pain is rated as 4/10. Pt denies headache, fevers, chills, diaphoresis, neck pain, chest pain, breathing difficulties, vomiting, left abdominal pain, left back pain, melena, hematochezia, urinary symptoms, numbness, lymphadenopathy, rash, or other complaints.. PAST MEDICAL HISTORY: See Below, hypertension, perinephric hematoma PAST SURGICAL HISTORY: See Below, SOCIAL HISTORY: See Below, HOME MEDICATIONS: See Below ALLERGIES: See Below VITALS: See Below PHYSICAL EXAMINATION: GENERAL: Awake, alert, weak-appearing, in no distress HENT: Normocephalic, atraumatic. Oropharynx unremarkable. EYES: Normal conjunctiva. Sclera non-icteric. NECK: Inspection normal. Non-tender. Supple. No nuchal rigidity. FROM. No masses. RESPIRATORY: No wheezes. No rales. Normal respiratory effort. CARDIAC: Borderline tachycardic rate. Normal rhythm. No murmurs. No rubs. Extremities warm and well perfused. Pulses equal. No JVD. GI: Soft, non-distended. Right flank tenderness to palpation. No rebound or guarding. No masses. RECTAL: Deferred. MUSCULOSKELETAL: Atraumatic. Chest examination reveals no tenderness. The back is symmetrical on inspection without obvious abnormality. There is right CVA tenderness to palpation. No joint edema. LOWER EXTREMITIES: Calves are equal size bilaterally and non-tender. No edema. No discoloration. NEURO: Normal sensorium. No sensory or motor deficits noted. SKIN: No rash or jaundice noted. PROCEDURES: none CRITICAL CARE: I have personally spent 35 minutes of critical care time in the direct management of this patient. This includes bedside care, interpretation of diagnostic studies, and testing, discussion with consultants, patient, and family members, and other required patient management activities. These minutes are in excess of all separately billable procedures. OBSERVATION NOTE: none Past Med/Surg History Problem List (Updated 09/16/24 @ 16:09 by Beto White MD) COVID-19 (Acute) SIRS (systemic inflammatory response syndrome) (Acute) COVID-19 Elevated LFTs Leukocytosis UTI (urinary tract infection) (Acute) Right flank pain (Acute) Weakness (Acute) Perinephric hematoma (Acute) Upper respiratory infection Pre-operative cardiovascular examination, myocardial ischemia Abnormal cardiovascular stress test 04/05/24 stress: development of flat to downsloping ST segment depressions, development of afib with RVR; this was followed by a Cardiac CT/FFR Coronary Arteries which showed moderate CAD (non-hemodynamically significant) and nonobstructive disease in Left coronary arteries Hydronephrosis (Chronic) Skin lesion of face Prediabetes Bladder mass Anemia (Acute) Bladder wall thickening Chronic back pain Gastroesophageal reflux disease BPH (benign prostatic hyperplasia) (Chronic) Followed by Urology Hypertension Hyperlipidemia Medical History (Updated 09/16/24 @ 16:09 by Beto White MD) Elevated serum creatinine per Urology, pt with 'significant outlet obstruction'; creat remains slightly elevated Abnormal cardiovascular stress test 04/05/24 stress: development of flat to downsloping ST segment depressions, development of afib with RVR; this was followed by a Cardiac CT/FFR Coronary Arteries which showed moderate CAD (non-hemodynamically significant) and nonobstructive disease in Left coronary arteries Hyperlipidemia GERD (gastroesophageal reflux disease) Chronic back pain BPH (benign prostatic hyperplasia) Bladder mass History of anemia Hypertension CRAWFORD (dyspnea on exertion) mild Prediabetes diet and exercise Cervicalgia History of bladder stone History of prostate cancer (~2021) radiation tx completed Chronic obstructive pulmonary disease History of asthma As child Bronchospasm Remote hx- pt "unsure of any details, doesn't remember this at all" Degenerative disc disease Hearing deficit B/L hearing loss - no BLISS's Atrial fibrillation pt had afib with RVR during stress test 04/05/24, currently on Eliquis Surgical History History of cystoscopy cysto, stent 04/15/24 [facility]: MAC without issue Hx of bilateral cataract extraction Hx of knee surgery R/L (1970s) Hx of arthroscopy of right knee History of transurethral resection of bladder tumor (TURBT) S/P left knee arthroscopy History of esophagogastroduodenoscopy (EGD) History of tonsillectomy Hx of colonoscopy Hx of hernia repair B/L inguinal hernia Family History Brother , age 65 Cancer Father , age 77 Cerebral aneurysm Mother , age 72 Lung cancer COPD (chronic obstructive pulmonary disease) Other Family history non-contributory No family history of adverse response to anesthesia Denies family history of Ovarian cancer Prostate cancer Diabetes Myocardial infarction Breast cancer Colorectal cancer Stroke Social History Smoking Status: Unknown if ever smoked Tobacco Type: Cigarettes Age Started Using Tobacco: 19; Age Quit Using Tobacco: 35; packs per day: 1; Second Hand Exposure: Yes (hx growing up); Do You Dip or Chew Tobacco: No; Hx Alcohol Use: No Hx Substance Use: No Preferred Language: Arabic Communication Ability: Effective Visual Impairment: No Limitations Hearing Ability: Hard of Hearing [employer] Press Hand Required: No Beliefs That Will Affect Care: None marital status: Current Living Situation: Spouse current occupational status: retired current occupation: retired from [employer] How many Children do You have: 2 Feels Safe at Home: Yes Childhood Exposure to Second-Hand Smoke: Yes Diet: regular caffeine: Yes (Pepsi at least 2 liters/day) during the past year weight has: remained stable Dental Care, Regularly: Yes Physical Activity Frequency: Daily Physical Activity Frequency Comment: sking/four wheeling/active lifestyle Seatbelt Use: always Sunscreen Use: Yes Do you think of yourself as: straight/heterosexual Assistive Devices: None Allergies Allergies Allergy/AdvReac Type Severity Reaction Status Date / Time No Known Drug Allergies Allergy Verified 09/16/24 12:48 Home Meds Home Medications Medication Instructions Recorded Confirmed cholecalciferol (vitamin D3) 25 25 mcg PO QAM 01/24/22 09/16/24 mcg (1,000 unit) capsule apixaban 5 mg tablet (Eliquis) 0 mg PO BID 09/02/24 09/16/24 losartan 100 mg tablet (Cozaar) 0 mg PO HS 09/16/24 09/16/24 Previous Rx's Medication Instructions Recorded metoprolol succinate 25 mg 25 mg PO QAM #90 tabs 04/28/24 tablet,extended release 24 hr tamsulosin 0.4 mg capsule 0.8 mg (2 x 0.4 mg) PO HS #180 caps 04/28/24 pantoprazole 40 mg tablet,delayed 40 mg PO QAM #90 tabs 07/23/24 release atorvastatin 20 mg tablet (Lipitor) 20 mg PO QAM #90 tabs 08/26/24 ferrous sulfate 325 mg (65 mg 325 mg PO Q OTHER DAY #20 tabs 09/04/24 iron) tablet,delayed release Results & Data (ED) Vital Signs Vital Signs - 24 hr 09/16/24 10:48 09/16/24 11:20 09/16/24 11:30 Temperature 36.7 C Temperature Source Temporal Artery Scan Pulse Rate 97 H Pulse Rate [Apical] 85 Pulse Rate from SpO2 Sensor Pulse Rhythm Regular Respiratory Rate 20 19 Respiratory Effort / Characteristics Non-Labored Spontaneous Non-Labored Spontaneous Respiratory Depth Normal Normal Respiratory Pattern Regular Blood Pressure 115/79 Blood Pressure [Left Arm] 94/68 L Blood Pressure Mean 91 Blood Pressure Mean [Left Arm] 76 Pulse Oximetry 97 96 96 Oxygen Delivery Method Room Air Room Air Room Air Sepsis Recent Fever Within 48 Hours No Sepsis New/Unexplained Change in Mental Status No Sepsis Action Taken by Nursing No Action Required 09/16/24 11:30 09/16/24 11:45 09/16/24 11:45 Temperature Temperature Source Pulse Rate 83 81 Pulse Rate [Apical] 85 Pulse Rate from SpO2 Sensor 83 82 Pulse Rhythm Respiratory Rate 12 14 22 Respiratory Effort / Characteristics Non-Labored Spontaneous Respiratory Depth Normal Respiratory Pattern Regular Blood Pressure 94/68 L 104/79 Blood Pressure [Left Arm] 104/79 Blood Pressure Mean 80 83 Blood Pressure Mean [Left Arm] 87 Pulse Oximetry 96 95 97 Oxygen Delivery Method Room Air Room Air Room Air Sepsis Recent Fever Within 48 Hours Sepsis New/Unexplained Change in Mental Status Sepsis Action Taken by Nursing 09/16/24 12:00 09/16/24 12:15 09/16/24 12:26 Temperature Temperature Source Pulse Rate 88 77 77 Pulse Rate [Apical] Pulse Rate from SpO2 Sensor 81 76 Pulse Rhythm Respiratory Rate 28 H 21 Respiratory Effort / Characteristics Respiratory Depth Respiratory Pattern Blood Pressure 119/79 106/70 Blood Pressure [Left Arm] Blood Pressure Mean 92 82 Blood Pressure Mean [Left Arm] Pulse Oximetry 96 95 Oxygen Delivery Method Room Air Room Air Sepsis Recent Fever Within 48 Hours Sepsis New/Unexplained Change in Mental Status Sepsis Action Taken by Nursing 09/16/24 12:30 09/16/24 12:45 09/16/24 13:00 Temperature Temperature Source Pulse Rate 77 69 71 Pulse Rate [Apical] Pulse Rate from SpO2 Sensor 77 67 Pulse Rhythm Respiratory Rate 17 18 16 Respiratory Effort / Characteristics Respiratory Depth Respiratory Pattern Blood Pressure 115/75 110/73 113/70 Blood Pressure [Left Arm] Blood Pressure Mean 95 82 84 Blood Pressure Mean [Left Arm] Pulse Oximetry 97 95 93 Oxygen Delivery Method Room Air Room Air Room Air Sepsis Recent Fever Within 48 Hours Sepsis New/Unexplained Change in Mental Status Sepsis Action Taken by Nursing Laboratory Data 09/16/24 11:30 09/16/24 11:30 Lab Results 09/16/24 09/16/24 Range/Units 11:30 13:29 WBC 13.82 H (4.8-10.8) K/ul RBC 3.95 L (4.70-6.10) M/uL Hgb 11.4 L (14.0-18.0) g/dl Hct 35.0 L (42.0-52.0) % MCV 88.6 (80.0-100.0) fL MCH 28.9 (25.0-34.0) pg MCHC 32.6 (32.0-36.0) g/dL RDW Std Deviation 43.6 (36.4-46.3) fL RDW Coeff of Gwyn 13.2 (11.5-14.5) % Plt Count 601 H (130-400) K/uL MPV 9.5 (9.4-12.4) fL Immature Gran % (Auto) 0.4 % Neut % (Auto) 83.1 % Lymph % (Auto) 6.2 % [place] % (Auto) 10.0 % Eos % (Auto) 0.1 % Baso % (Auto) 0.2 % Neut # (Auto) 11.48 H (1.40-6.50) K/uL Lymph # (Auto) 0.86 L (1.20-3.40) K/uL [place] # (Auto) 1.38 H (0.11-0.59) K/uL Eos # (Auto) 0.01 (0.00-0.50) K/uL Baso # (Auto) 0.03 (0.00-0.20) K/uL Immature Gran # (Auto) 0.06 (0.01-0.20) K/uL Sodium 133 L (136-145) mmol/L Potassium 4.2 (3.5-5.1) mmol/L Chloride 97 L (98-107) mmol/L Carbon Dioxide 28 (21-32) mmol/L Anion Gap 8 (3-11) BUN 31 H (6-23) mg/dl Creatinine 1.82 H (0.6-1.4) mg/dl Est Cr Clr Drug Dosing 31.3 ml/min eGFR 38.74 BUN/Creatinine Ratio 17.0 (10-20) Glucose 114 H (70-99(Fasting)) mg/dl Lactate 2.3 H* 1.3 (0.4-2.0) mmol/L Calcium 8.7 (8.6-10.3) mg/dl Magnesium 1.9 (1.7-2.4) mg/dl Total Bilirubin 0.9 (0.2-1.0) mg/dl Direct Bilirubin 0.3 H (0-0.2) mg/dl AST 64 H (13-39) U/L ALT 84 H (7-52) U/L Alkaline Phosphatase 200 H (34-104) U/L Troponin I High Sens 10.3 (0-20) pg/ml Total Protein 8.1 (6.0-8.3) gm/dl Albumin 2.8 L (3.4-5.0) gm/dl Procalcitonin 0.46 (0-0.5) ng/ml Administered Medications Discontinued Medications Sodium Chloride (Nss) 1,000 mls @ 999 mls/hr IV .Q1H1M VINCENT Stop: 09/16/24 12:00 Last Infusion: 09/16/24 12:41 Dose: Infused Documented By: Admin: 09/16/24 11:40 Dose: 999 mls/hr Documented By: Cefepime HCl (Maxipime 2000mg) 2,000 mg in 20 mls @ 5 mls/min IV NOW STA; Protocol Stop: 09/16/24 11:14 Last Admin: 09/16/24 12:09 Dose: 5 mls/min Documented By: Sodium Chloride (Nss) 1,000 mls @ 999 mls/hr IV .Q1H1M ONE Stop: 09/16/24 13:19 Last Infusion: 09/16/24 13:43 Dose: Infused Documented By: Admin: 09/16/24 12:42 Dose: 999 mls/hr Documented By: Sodium Chloride (Nss) 500 mls @ 999 mls/hr IV .Q31M ONE Stop: 09/16/24 12:49 Last Infusion: 09/16/24 13:18 Dose: Infused Documented By: Admin: 09/16/24 12:43 Dose: 999 mls/hr Documented By: Daptomycin 450 mg/ Syringe 9 mls @ 4.5 mls/min IV NOW STA; Protocol Stop: 09/16/24 12:23 Last Admin: 09/16/24 12:43 Dose: 4.5 mls/min Documented By: Imaging Data Radiologist's Impression: Abdomen/Pelvis CT 09/16/24 11:00 CT OF THE ABDOMEN AND PELVIS WITHOUT CONTRAST CLINICAL HISTORY: UTI, WBC yeni, recent khoi-nephric hematoma COMPARISON STUDY: CT of the abdomen and pelvis September 01, 2024. TECHNIQUE: Axial images of the abdomen and pelvis were obtained without IV contrast. Images were reviewed in the axial, sagittal, and coronal planes. Automated exposure control was utilized for the study. A dose lowering technique was utilized adhering to the principles of ALARA. FINDINGS: No pneumatosis, free air or portal venous gas is present. A right ureteral stent remains in place. There is no hydronephrosis. No urinary calculi are identified. A complex right renal sinus fluid collection has mildly increased in size since CT of September 01, 2024, measuring approximately 10 x 8 x 7 cm, previously 10 x 6.6 x 6.4 cm. Areas of increased attenuation have decreased. Several adjacent smaller fluid collections have developed. Mass effect upon the right hepatic lobe has increased. There is severe compression of the right renal parenchyma with cortical thinning. Perinephric and periureteral stranding is noted. Stranding adjacent to the bladder is unchanged. There is no left hydronephrosis. Geographic hepatic steatosis has increased since prior exam. Unenhanced images of the spleen, adrenal glands and pancreas are unremarkable. There is no evidence for a bowel obstruction. Colonic diverticulosis without evidence for acute diverticulitis. IMPRESSION: 1. Right ureteral stent in place. No hydronephrosis. No ureteral calculi. 2. Increase in size of a complex right renal sinus fluid collection since CT of September 01, 2024, now measuring 10 x 8 x 7 cm. Interval decrease in foci of increased attenuation consistent with an evolving hematoma. Associated compression of the right renal parenchyma and increasing mass effect upon the right hepatic lobe. Delineation between the renal fluid collection and right hepatic lobe is difficult on this unenhanced exam. Interval development of a few adjacent smaller perinephric fluid collections. A superimposed infectious process with infected hematoma cannot be excluded. 3. Stranding adjacent to the bladder, similar to prior exam. 4. Chronic diverticulosis. No evidence for acute diverticulitis. ACT 112: Negative or not required by law. Electronically signed by: Carlos White M.D. 09/16/2024 11:47 AM Chest X-Ray 09/16/24 11:00 XR chest 1V portable CLINICAL HISTORY: Sepsis TECHNIQUE: Single frontal radiograph of the chest was obtained. Comparison: Comparison is made to chest radiograph 09/15/2024 FINDINGS: No lines and tubes are seen. The cardiomediastinal silhouette is normal. The lungs are clear. No evidence of pleural effusion or pneumothorax. IMPRESSION: No acute abnormalities and in particular no radiographic evidence of pneumonia. ACT 112: Negative or not required by law. Electronically signed by: Oscar Rod M.D. 09/16/2024 11:16 AM Discharge Plan Visit Data Chief Complaint: Infection Stated Complaint: KIDNEY INFECTION, DOC REF, ANTIBIOTICS ED Provider: Beto White Discharge Problem: SIRS (systemic inflammatory response syndrome), Weakness, Right flank pain, UTI (urinary tract infection), Perinephric hematoma, COVID-19 Forms Stand Alone Forms: My [facility] [employer] Prescriptions Prescriptions: No Action cholecalciferol (vitamin D3) 25 mcg (1,000 unit) capsule 25 mcg PO QAM Rx Instructions: out of tablets at this time tamsulosin 0.4 mg capsule 0.8 mg PO HS Qty: 180 3RF metoprolol succinate 25 mg tablet extended release 24 hr 25 mg PO QAM Qty: 90 3RF pantoprazole 40 mg tablet,delayed release (DR/EC) 40 mg PO QAM Qty: 90 3RF atorvastatin [Lipitor] 20 mg tablet 20 mg PO QAM Qty: 90 3RF Eliquis 5 mg Tablet 0 mg PO BID Hold Instructions: Resume on 09/15/24. hold at least until urology follow up appointment - discuss with Dr. Frankel if it is safe to restart at that time Rx Instructions: ON HOLD STILL 09/16 PER PT ferrous sulfate 325 mg (65 mg iron) tablet,delayed release (DR/EC) 325 mg PO Q OTHER DAY Qty: 20 0RF Rx Instructions: may buy over the counter losartan [Cozaar] 100 mg tablet 0 mg PO HS Rx Instructions: ON HOLD 09/16 Referrals Referrals: Uri Hand DO [Primary Care Provider] -
[2024-09-16] MEDS: SODIUM CHLORIDE 0.9% 1,000 ML IV SCH (11:40)
--- NOTE | 2024-09-16 11:49 | CT Scan Report ---
CT OF THE ABDOMEN AND PELVIS WITHOUT CONTRAST CLINICAL HISTORY: UTI, WBC yeni, recent khoi-nephric hematoma COMPARISON STUDY: CT of the abdomen and pelvis September 01, 2024. TECHNIQUE: Axial images of the abdomen and pelvis were obtained without IV contrast. Images were revi ewed in the axial, sagittal, and coronal planes. Automated exposure control was utilized for the carine dy. A dose lowering technique was utilized adhering to the principles of ALARA. FINDINGS: No pneumatosis, free air or portal venous gas is present. A right ureteral stent remains in place. There is no hydronephrosis. No urinary calculi are identified. A complex right renal sinus fl uid collection has mildly increased in size since CT of September 01, 2024, measuring approximately 10 x 8 x 7 cm, previously 10 x 6.6 x 6.4 cm. Areas of increased attenuation have decreased. Several adjac ent smaller fluid collections have developed. Mass effect upon the right hepatic lobe has increased. There is severe compression of the right renal parenchyma with cortical thinning. Perinephric and per iureteral stranding is noted. Stranding adjacent to the bladder is unchanged. There is no left hydron ephrosis. Geographic hepatic steatosis has increased since prior exam. Unenhanced images of the splee n, adrenal glands and pancreas are unremarkable. There is no evidence for a bowel obstruction. Coloni c diverticulosis without evidence for acute diverticulitis. IMPRESSION: 1. Right ureteral stent in place. No hydronephrosis. No ureteral calculi. 2. Increase in size of a complex right renal sinus fluid collection since CT of September 01, 2024, now measuring 10 x 8 x 7 cm. Interval decrease in foci of increased attenuation consistent with an evolvi ng hematoma. Associated compression of the right renal parenchyma and increasing mass effect upon the right hepatic lobe. Delineation between the renal fluid collection and right hepatic lobe is difficu lt on this unenhanced exam. Interval development of a few adjacent smaller perinephric fluid collecti ons. A superimposed infectious process with infected hematoma cannot be excluded. 3. Stranding adjacent to the bladder, similar to prior exam. 4. Chronic diverticulosis. No evidence for acute diverticulitis. ACT 112: Negative or not required by law. Electronically signed by: Carlos White M.D. 09/16/2024 11:47 AM
[2024-09-16 12:08] LABS: Basophils # (auto) 0.03 K/uL (0.00-0.20); Basophils % (auto) 0.2 %; Eosinophils # (auto) 0.01 K/uL (0.00-0.50); Eosinophils % (auto) 0.1 %; Hemoglobin 11.4 g/dl (14.0-18.0); Immature Granulocytes # (auto) 0.06 K/uL (0.01-0.20); Immature Granulocytes % (auto) 0.4 %; Lymphocytes # (auto) 0.86 K/uL (1.20-3.40); Lymphocytes % (auto) 6.2 %; Mean Corpuscular Hemoglobin 28.9 pg (25.0-34.0); Mean Corpuscular Hgb Conc 32.6 g/dL (32.0-36.0); Mean Corpuscular Volume 88.6 fL (80.0-100.0); Mean Platelet Volume 9.5 fL (9.4-12.4); Monocytes # (auto) 1.38 K/uL (0.11-0.59); Neutrophils # (auto) 11.48 K/uL (1.40-6.50); Neutrophils % (auto) 83.1 %; Platelet Count 601 K/uL (130-400); RDW Coefficient of Variation 13.2 % (11.5-14.5); RDW Standard Deviation 43.6 fL (36.4-46.3); Red Blood Count 3.95 M/uL (4.70-6.10); White Blood Count 13.82 K/ul (4.8-10.8)
[2024-09-16] MEDS: CEFEPIME 2000MG 2,000 MG/20 ML SYR IV STA (12:09)
[2024-09-16 12:10] LABS: Albumin Level 2.8 gm/dl (3.4-5.0); Bilirubin Direct 0.3 mg/dl (0-0.2); Bilirubin,Total 0.9 mg/dl (0.2-1.0); Calcium 8.7 mg/dl (8.6-10.3); Creatinine Clr Calc Pharmacy 31.3 ml/min; Magnesium 1.9 mg/dl (1.7-2.4); Potassium 4.2 mmol/L (3.5-5.1); Total Protein 8.1 gm/dl (6.0-8.3)
[2024-09-16 12:17] LABS: Troponin I High Sensitivity 10.3 pg/ml (0-20)
[2024-09-16] MEDS: SODIUM CHLORIDE 0.9% 1,000 ML IV ONE (12:42)
[2024-09-16] MEDS: DAPTOmycin 450 MG in SYRINGE 0 ML IV STA (12:43)
[2024-09-16] MEDS: SODIUM CHLORIDE 0.9% 500 ML IV ONE (12:43)
--- NOTE | 2024-09-16 14:30 | Electrocardiogram Report ---
Test Reason : Blood Pressure : */* mmHG Vent. Rate : 85 BPM Atrial Rate : 85 BPM P-R Int : 104 ms QRS Dur : 70 ms QT Int : 376 ms P-R-T Axes : 75 68 47 degrees QTcB Int : 447 ms Sinus rhythm with short NE with Premature atrial complexes Diffuse Minor Nonspecific ST abnormality Abnormal ECG When compared with ECG of 11-Jun-2023 10:38, Premature atrial complexes are now Present NE interval has decreased Vent. rate has increased by 36 bpm Confirmed by Curtis Resendez ([id number]) on 09/16/2024 2:30:27 PM Referred By: Uri Hand Confirmed By: Curtis Resendez
--- NOTE | 2024-09-16 15:08 | History & Physical Report ---
Date of Service September 16, 2024 Assessment & Plan (1) Perinephric hematoma: Plan: Evolving complex hematoma in the setting of TURP with stent exchange on 08/16/24 & klebsiella pneumoniae UTI 09/01 - Admit to med/surg unit - S/p 3L of NSS in ED due to elevated lactate of 2.3, repeat 1.3 - Diet - regular - VS per unit protocol - H/H stable, continue holding eliquis - Empiric abx given in ED including cefepime and daptomycin - will continue on ceftriaxone 2g IV q24 to start this evening based on sensitivities from 09/01 urine culture - Blood culture ordered, pending - Consult urology, appreciate assistance - at the time of this admission, they have not yet seen or evaluated this patient - Overall with significant concern that this complex fluid collection represents hematoma with abscess and given the size, is not likely to improve without surgical intervention (2) UTI (urinary tract infection): Plan: Acute - Recently treated for klebsiella UTI initially with ceftriaxone and then transitioned to 10-day of cefadroxil - Repeat UA from 09/15 appears grossly infected, urine culture pending - Treat based off of prior sensitivities, transition to ceftriaxone 2g IV daily as noted above, first dose this evening (3) Leukocytosis: Plan: Acute - Secondary to acute infection - Blood and urine cultures drawn - Trend with CBC in AM (4) Elevated LFTs: Plan: New since his 09/01/24 admission - Inflammation related to adjacent perinephric inflammation/hematoma/infection? - Hold atorvastatin - Trend with repeat CMP in AM (5) COVID-19: Plan: Uncertain chronicity, tested positive on 09/15 - Mild symptoms, not hypoxic, no cough, or dyspnea - Defer remdesivir or dexamethasone at this time - Place in isolation (6) Atrial fibrillation: Plan: Chronic - Rate is currently controlled - Continue metoprolol succ - Continue holding eliquis as noted above Plan H/H remains stable, continue FeSO4 supplementation. CKD - creatinine still slightly above baseline but does not meet AISSATOU criteria, received 3L of NSS in ER, trend with labs in AM. Continue holding losartan as BP has been in good range without it. HTN - continue metoprolol. Losartan held as above. GERD - continue protonix Knee-high SCDs ordered for DVT ppx. AM labs ordered. Appreciate urology assistance in managing this case. Plan has been d/w Dr. Jin, further orders to be implemented as clinically warranted. History of Present Illness Chief Complaint: Abnormal labs Primary Care Provider: Uri HandDO Stout is a 73 yo M with a pmhx of bladder mass, BPH and h/o prostate CA s/p radiation and TURP with stent exchange in the R ureter due to scarring/strictures on 08/16/[address] Frankel who presents to the ER today after being instructed to come due to abnormal labs. Patient was hospitalized 09/01 through 09/04 for perinephric hematoma approx 9.6 x 6.6 x 6.4 cm in size within the right renal sinus. He was also found to have a grossly infected UA. He was previously on eliquis due to afib which was held. He was started on empiric antibiotic therapy with ceftriaxone. His urine culture grew klebsiella pneumoniae with some intermediate sensitivities and resistance. He was discharged home to complete a course of cefadroxil. He presented for urology follow up on 09/15, labs were ordered at that time. He reportedly felt weak and played out, staff did not allow him to transport himself home and instead called his . He did have the labs completed and those were forwarded to his PCP today who contacted the patient and instructed him to go directly to the ER. The patient denies fever, chills. He is reporting some low back pain on the right side that he rates a 3/10. He endorses loss of appetite, denies chest pain or dyspnea, abd pain, n/v/d. His labs from 09/15 are notable for a wbc count of 14.89 with neutrophilic predominance and a creatinine of 2.0, above his baseline of 1.6, LFTs were also elevated, and repeat UA appeared grossly infected. He tested positive for COVID-19 as well on 09/15. His repeat labs today, show a persistently elevated wbc count of 13.89, stable H&H, platelets of 601, creatinine of 1.82 and an elevated lactate of 2.3. Repeat urine studies and blood cultures collected. He was medicated with a dose of IV cefepime and daptomycin in the ER. Repeat CTAP without contrast demonstrates an evolving 10 x 8 x 7 cm complex fluid collection in the right renal sinus. Case was discussed with urology who felt that he could be admitted here and if no improvement, would require transfer to tertiary center for surgical intervention. Patient has been referred for admission to the hospital medicine team. Allergies Allergy/AdvReac Type Severity Reaction Status Date / Time No Known Drug Allergies Allergy Verified 09/16/24 12:48 Home Medications Medication Instructions Recorded Confirmed Type cholecalciferol (vitamin D3) 25 25 mcg PO QAM 01/24/22 09/16/24 History mcg (1,000 unit) capsule metoprolol succinate 25 mg 25 mg PO QAM #90 tabs 04/28/24 09/16/24 Rx tablet,extended release 24 hr tamsulosin 0.4 mg capsule 0.8 mg (2 x 0.4 mg) PO HS #180 caps 04/28/24 09/16/24 Rx pantoprazole 40 mg tablet,delayed 40 mg PO QAM #90 tabs 07/23/24 09/16/24 Rx release atorvastatin 20 mg tablet (Lipitor) 20 mg PO QAM #90 tabs 08/26/24 09/16/24 Rx apixaban 5 mg tablet (Eliquis) 0 mg PO BID 09/02/24 09/16/24 History ferrous sulfate 325 mg (65 mg 325 mg PO Q OTHER DAY #20 tabs 09/04/24 09/16/24 Rx iron) tablet,delayed release losartan 100 mg tablet (Cozaar) 0 mg PO HS 09/16/24 09/16/24 History Past Med/Surg History Problem List (Updated 09/16/24 @ 16:53 by Background Preston) COVID-19 (Acute) SIRS (systemic inflammatory response syndrome) (Acute) COVID-19 Elevated LFTs Leukocytosis UTI (urinary tract infection) (Acute) Right flank pain (Acute) Weakness (Acute) Perinephric hematoma (Acute) Upper respiratory infection Pre-operative cardiovascular examination, myocardial ischemia Abnormal cardiovascular stress test 04/05/24 stress: development of flat to downsloping ST segment depressions, development of afib with RVR; this was followed by a Cardiac CT/FFR Coronary Arteries which showed moderate CAD (non-hemodynamically significant) and nonobstructive disease in Left coronary arteries Hydronephrosis (Chronic) Skin lesion of face Prediabetes Bladder mass Anemia (Acute) Bladder wall thickening Chronic back pain Gastroesophageal reflux disease BPH (benign prostatic hyperplasia) (Chronic) Followed by Urology Hypertension Hyperlipidemia Medical History (Updated 09/16/24 @ 16:53 by Jesse Johnston) Elevated serum creatinine per Urology, pt with 'significant outlet obstruction'; creat remains slightly elevated Abnormal cardiovascular stress test 04/05/24 stress: development of flat to downsloping ST segment depressions, development of afib with RVR; this was followed by a Cardiac CT/FFR Coronary Arteries which showed moderate CAD (non-hemodynamically significant) and nonobstructive disease in Left coronary arteries Hyperlipidemia GERD (gastroesophageal reflux disease) Chronic back pain BPH (benign prostatic hyperplasia) Bladder mass History of anemia Hypertension CRAWFORD (dyspnea on exertion) mild Prediabetes diet and exercise Cervicalgia History of bladder stone History of prostate cancer (~2021) radiation tx completed Chronic obstructive pulmonary disease History of asthma As child Bronchospasm Remote hx- pt "unsure of any details, doesn't remember this at all" Degenerative disc disease Hearing deficit B/L hearing loss - no BLISS's Atrial fibrillation pt had afib with RVR during stress test 04/05/24, currently on Eliquis Surgical History History of cystoscopy cysto, stent 04/15/24 [facility]: MAC without issue Hx of bilateral cataract extraction Hx of knee surgery R/L (1970s) Hx of arthroscopy of right knee History of transurethral resection of bladder tumor (TURBT) S/P left knee arthroscopy History of esophagogastroduodenoscopy (EGD) History of tonsillectomy Hx of colonoscopy Hx of hernia repair B/L inguinal hernia Family History Brother , age 65 Cancer Father , age 77 Cerebral aneurysm Mother , age 72 Lung cancer COPD (chronic obstructive pulmonary disease) Other Family history non-contributory No family history of adverse response to anesthesia Denies family history of Ovarian cancer Prostate cancer Diabetes Myocardial infarction Breast cancer Colorectal cancer Stroke Social History Smoking Status: Former smoker Tobacco Type: Cigarettes Age Started Using Tobacco: 19; Age Quit Using Tobacco: 35; packs per day: 1; Second Hand Exposure: Yes (hx growing up); Do You Dip or Chew Tobacco: No; Hx Alcohol Use: No Hx Substance Use: No Preferred Language: Surinamese Communication Ability: Effective Visual Impairment: No Limitations Hearing Ability: Hard of Hearing [employer] Required: No Beliefs That Will Affect Care: None marital status: Current Living Situation: Spouse current occupational status: retired current occupation: retired from [employer] How many Children do You have: 2 Feels Safe at Home: Yes Childhood Exposure to Second-Hand Smoke: Yes Diet: regular caffeine: Yes (Pepsi at least 2 liters/day) during the past year weight has: remained stable Dental Care, Regularly: Yes Physical Activity Frequency: Daily Physical Activity Frequency Comment: sking/four wheeling/active lifestyle Seatbelt Use: always Sunscreen Use: Yes Do you think of yourself as: straight/heterosexual Assistive Devices: None Review of Systems 2 Review of Systems: All systems reviewed and are unremarkable except as noted in HPI and below. Denies fever, chills, fatigue, headache, nasal congestion, sore throat, cough, chest pain, shortness of breath, palpitations, orthopnea, PND, abdominal pain, n/v/d, constipation, dysuria, hematuria, frequency, joint pain or swelling, easy bruising or bleeding, skin lesions or rashes. Physical Exam 2 Physical Exam: GENERAL: 73 yo thin appearing elderly M. Nontoxic. NAD. EYES: EOMI. PERRLA. Anicteric. HENT: Moist mucous membranes. No cervical lymphadenopathy. LUNGS: Nonlabored. Clear to auscultation bilaterally. No W/R/R. CARDIOVASCULAR: Irregular rhythm with CVR ABDOMEN: Soft, non-tender and non-distended. Bowel sounds normoactive x 4 quad. -CVA tenderness EXTREMITIES: No edema. Non-tender. Peripheral pulses +2/4. NEUROLOGIC: A&O x3. No focal neurological deficits. CN II-XII grossly intact. PSYCHIATRIC: Cooperative. Appropriate mood and affect. SKIN: Warm, dry, intact. No rashes or lesions. Results & Data Results & Data Vital Signs (Past 12 Hours) Vital Signs Temp Pulse Pulse Resp BP BP Pulse Ox 09/16/24 13:00 71 16 113/70 93 09/16/24 12:45 69 18 110/73 95 09/16/24 12:30 77 17 115/75 97 09/16/24 12:26 77 09/16/24 12:15 77 21 106/70 95 09/16/24 12:00 88 28 H 119/79 96 09/16/24 11:45 81 22 104/79 97 09/16/24 11:45 85 14 104/79 95 09/16/24 11:30 83 12 94/68 L 96 09/16/24 11:30 85 19 94/68 L 96 09/16/24 11:20 96 09/16/24 10:48 36.7 C 97 H 20 115/79 97 O2 Del Method 09/16/24 13:00 Room Air 09/16/24 12:45 Room Air 09/16/24 12:30 Room Air 09/16/24 12:26 09/16/24 12:15 Room Air 09/16/24 12:00 Room Air 09/16/24 11:45 Room Air 09/16/24 11:45 Room Air 09/16/24 11:30 Room Air 09/16/24 11:30 Room Air 09/16/24 11:20 Room Air 09/16/24 10:48 Room Air Laboratory Results 09/16/24 11:30 09/16/24 11:30 Diagnostic Findings Abdomen/Pelvis CT 09/16/24 11:00 CT OF THE ABDOMEN AND PELVIS WITHOUT CONTRAST CLINICAL HISTORY: UTI, WBC yeni, recent khoi-nephric hematoma COMPARISON STUDY: CT of the abdomen and pelvis September 01, 2024. TECHNIQUE: Axial images of the abdomen and pelvis were obtained without IV contrast. Images were reviewed in the axial, sagittal, and coronal planes. Automated exposure control was utilized for the study. A dose lowering technique was utilized adhering to the principles of ALARA. FINDINGS: No pneumatosis, free air or portal venous gas is present. A right ureteral stent remains in place. There is no hydronephrosis. No urinary calculi are identified. A complex right renal sinus fluid collection has mildly increased in size since CT of September 01, 2024, measuring approximately 10 x 8 x 7 cm, previously 10 x 6.6 x 6.4 cm. Areas of increased attenuation have decreased. Several adjacent smaller fluid collections have developed. Mass effect upon the right hepatic lobe has increased. There is severe compression of the right renal parenchyma with cortical thinning. Perinephric and periureteral stranding is noted. Stranding adjacent to the bladder is unchanged. There is no left hydronephrosis. Geographic hepatic steatosis has increased since prior exam. Unenhanced images of the spleen, adrenal glands and pancreas are unremarkable. There is no evidence for a bowel obstruction. Colonic diverticulosis without evidence for acute diverticulitis. IMPRESSION: 1. Right ureteral stent in place. No hydronephrosis. No ureteral calculi. 2. Increase in size of a complex right renal sinus fluid collection since CT of September 01, 2024, now measuring 10 x 8 x 7 cm. Interval decrease in foci of increased attenuation consistent with an evolving hematoma. Associated compression of the right renal parenchyma and increasing mass effect upon the right hepatic lobe. Delineation between the renal fluid collection and right hepatic lobe is difficult on this unenhanced exam. Interval development of a few adjacent smaller perinephric fluid collections. A superimposed infectious process with infected hematoma cannot be excluded. 3. Stranding adjacent to the bladder, similar to prior exam. 4. Chronic diverticulosis. No evidence for acute diverticulitis. ACT 112: Negative or not required by law. Electronically signed by: Carlos White M.D. 09/16/2024 11:47 AM Chest X-Ray 09/16/24 11:00 XR chest 1V portable CLINICAL HISTORY: Sepsis TECHNIQUE: Single frontal radiograph of the chest was obtained. Comparison: Comparison is made to chest radiograph 09/15/2024 FINDINGS: No lines and tubes are seen. The cardiomediastinal silhouette is normal. The lungs are clear. No evidence of pleural effusion or pneumothorax. IMPRESSION: No acute abnormalities and in particular no radiographic evidence of pneumonia. ACT 112: Negative or not required by law. Electronically signed by: Oscar Rod M.D. 09/16/2024 11:16 AM Code Status & VTE Plan Code Status DNR/DNI - confirmed with patient VTE Prophylaxis Plan VTE Prophylaxis will be ordered: Yes Supervising Physician Co-Signing Physician Notes I personally saw and examined the patient. I independently reviewed the labs, EKG, imaging, problem list, medication list, past medical history and family history. I verified all condon points and agree with Sandra Capellan PA-C with the following exceptions and/or additions: 73 year old male presents to the ER due to worsening outpatient labs with increasing WBC. No fever or chills from patient. Recent diagnosis of COVID but appears to be asymptomatic from this. O/E HS RRR, no murmurs, Chest CTAB, Abdo SNT, right mild CVA tenderness A/P Perinephric hematoma - Holding anticoagulation, possible concern for abscess which is unlikely to resolve by itself without drainage if it is infected - will defer management of this to urology, consider ID consult Pyelonephritis - IV ceftriaxone based on prior culture, follow up repeat blood and urine cultures COVID-19 - supportive care only PG Care Time/CCT Total # of Minutes Spent Total Time Spent with Patient: Total time spent is greater than 50% in coordination of care (as documented) at patient's floor/unit and/or counseling patient: 80 minutes Coding Level of Care Code 04085 INT INP/OBS CARE 375MIN Diagnoses Perinephric hematoma S37.019A UTI (urinary tract infection) N39.0 Leukocytosis D72.829 Elevated LFTs R79.89 COVID-19 U07.1 Atrial fibrillation I48.91
[2024-09-16] MEDS ORDERED: ACETAMINOPHEN 325 MG TAB PO PRN (16:59)
[2024-09-16] MEDS ORDERED: MAGNESIUM HYDROXIDE SUSP 30 ML UDC PO PRN (16:59)
[2024-09-16] MEDS ORDERED: ONDANSETRON INJ 2 MG/ML 2 ML VIAL IV PRN (16:59)
[2024-09-16] MEDS ORDERED: ALUMINUM/MAGNESIUM SUSP 30 ML UDC PO PRN (16:59)
--- NOTE | 2024-09-16 20:15 | Urology Consultation ---
<Statement entered by Jah Braxton MD - 09/17/24 07:06> I have discussed Mr. Pal's case with JAMIE Ibarra and agree with the above documentation. 73-year-old male with history of right hydronephrosis, right ureteral stricture who recently underwent ureteral dilation and stent placement in August,. He developed a perinephric hematoma as well as UT I and was treated for that. Have admitted with COVID, concern for possible ongoing UTI. Urine culture is pending and he is on broad-spectrum antibiotics. Would continue these until culture data becomes available. At this point, I suspect most of his symptoms are related to COVID-19 infection. For now, would hold off on any intervention regarding his hematoma such as drainage. Would recommend supportive care and ongoing monitoring. If he does not improve or if he clinically worsens, could consider transfer possible percutaneous drainage of perinephric hematoma or drain placement. -Jah Braxton MD. Date of Consultation September 16, 2024 Assessment & Plan (1) Perinephric hematoma: (2) UTI (urinary tract infection): (3) COVID-19: Plan 73 yo/M admitted with complex right renal sinus fluid collection consistent with evolving hematoma, concern for UTI, and Covid-19 infection. - Pt afebrile and hemodynamically stable - Labs show leukocytosis of 13.82, hemoglobin stable, and creatinine 1.82. - Urine and blood cultures pending - Received cefepime and daptomycin in the ER and now transitioned to Ceftriaxone based on prior urine culture - Voiding spontaneously, continue to monitor. Bladder scan PRN. - CTAP reviewed - Complex right renal sinus fluid collection now measuring 10 x 8 x 7 cm with interval decrease in foci of increased attenuation consistent with an evolving hematoma, right ureteral stent in place, and no hydronephrosis. - No plan for urological intervention at this time - Recommend supportive care and IV antibiotics for now with close monitoring. If patient clinically deteriorates and/or fails to progress, may need to consider transfer to tertiary center for drainage of hematoma - Continue to trend labs - Recommend checking bladder scan/PVR to ensure he is emptying well - Urology will follow closely Plan of care reviewed with Dr. Braxton, on-call urologist. History of Present Illness Attending Physician: Klaus Jin MD History of Present Illness 73 yo M with a past medical history of hypertension, anemia, prediabetes, calcified bladder neck and prostate mass s/p transurethral resection, prostate cancer s/p radiation, right hydronephrosis and right ureteral stricture s/p dilation and stent placement 08/16/[address] Frankel who presented to the ED today due to abnormal outpatient labs. Patient was hospitalized 09/01 through 09/04 for perinephric hematoma approx 9.6 x 6.6 x 6.4 cm in size within the right renal sinus. He was also found to have a grossly infected UA. He was previously on eliquis due to afib which was held. He was started on empiric antibiotic therapy with ceftriaxone. His urine culture grew klebsiella pneumoniae and he was discharged home to complete a course of cefadroxil. He presented for urology outpatient follow up on 09/15 and labs were ordered at that time. He did have the labs completed and those were forwarded to his PCP today who contacted the patient and instructed him to go directly to the ED today. In the ED, he was afebrile and hemodynamically stable. He tested positive for COVID-19. Labs shows a wbc of 13.82, hemoglobin 11.4, and creatinine 1.82. Lactate 2.3. Repeat urine studies and blood cultures collected. He was medicated with a dose of IV cefepime and daptomycin in the ER. Repeat CTAP without contrast demonstrates an increase in size of a complex right renal sinus fluid collection since CT of September 01, 2024, now measuring 10 x 8 x 7 cm with interval decrease in foci of increased attenuation consistent with an evolving hematoma, right ureteral stent in place, and no hydronephrosis. CT abd pelvis- 1. Right ureteral stent in place. No hydronephrosis. No ureteral calculi. 2. Increase in size of a complex right renal sinus fluid collection since CT of September 01, 2024, now measuring 10 x 8 x 7 cm. Interval decrease in foci of increased attenuation consistent with an evolving hematoma. Associated compression of the right renal parenchyma and increasing mass effect upon the right hepatic lobe. Delineation between the renal fluid collection and right hepatic lobe is difficult on this unenhanced exam. Interval development of a few adjacent smaller perinephric fluid collections. A superimposed infectious process with infected hematoma cannot be excluded. 3. Stranding adjacent to the bladder, similar to prior exam. 4. Chronic diverticulosis. No evidence for acute diverticulitis. Pt was seen at bedside today in the ED. Awake and resting in bed on arrival. No acute distress. Reports feeling fatigued and decreased appetite. Has some mild right sided pain, rates 3/10. Denies fever, chills, nausea, vomiting at present. Allergies Allergy/AdvReac Type Severity Reaction Status Date / Time No Known Drug Allergies Allergy Verified 09/16/24 12:48 Home Medications Medication Instructions Recorded Confirmed Type cholecalciferol (vitamin D3) 25 25 mcg PO QAM 01/24/22 09/16/24 History mcg (1,000 unit) capsule metoprolol succinate 25 mg 25 mg PO QAM #90 tabs 04/28/24 09/16/24 Rx tablet,extended release 24 hr tamsulosin 0.4 mg capsule 0.8 mg (2 x 0.4 mg) PO HS #180 caps 04/28/24 09/16/24 Rx pantoprazole 40 mg tablet,delayed 40 mg PO QAM #90 tabs 07/23/24 09/16/24 Rx release atorvastatin 20 mg tablet (Lipitor) 20 mg PO QAM #90 tabs 08/26/24 09/16/24 Rx apixaban 5 mg tablet (Eliquis) 0 mg PO BID 09/02/24 09/16/24 History ferrous sulfate 325 mg (65 mg 325 mg PO Q OTHER DAY #20 tabs 09/04/24 09/16/24 Rx iron) tablet,delayed release losartan 100 mg tablet (Cozaar) 0 mg PO HS 09/16/24 09/16/24 History Patient History Medical History (Updated 09/16/24 @ 16:53 by Background Daemon) Elevated serum creatinine per Urology, pt with 'significant outlet obstruction'; creat remains slightly elevated Abnormal cardiovascular stress test 04/05/24 stress: development of flat to downsloping ST segment depressions, development of afib with RVR; this was followed by a Cardiac CT/FFR Coronary Arteries which showed moderate CAD (non-hemodynamically significant) and nonobstructive disease in Left coronary arteries Hyperlipidemia GERD (gastroesophageal reflux disease) Chronic back pain BPH (benign prostatic hyperplasia) Bladder mass History of anemia Hypertension CRAWFORD (dyspnea on exertion) mild Prediabetes diet and exercise Cervicalgia History of bladder stone History of prostate cancer (~2021) radiation tx completed Chronic obstructive pulmonary disease History of asthma As child Bronchospasm Remote hx- pt "unsure of any details, doesn't remember this at all" Degenerative disc disease Hearing deficit B/L hearing loss - no BLISS's Atrial fibrillation pt had afib with RVR during stress test 04/05/24, currently on Eliquis Surgical History History of cystoscopy cysto, stent 04/15/24 [facility]: MAC without issue Hx of bilateral cataract extraction Hx of knee surgery R/L (1970s) Hx of arthroscopy of right knee History of transurethral resection of bladder tumor (TURBT) S/P left knee arthroscopy History of esophagogastroduodenoscopy (EGD) History of tonsillectomy Hx of colonoscopy Hx of hernia repair B/L inguinal hernia Family History Brother , age 65 Cancer Father , age 77 Cerebral aneurysm Mother , age 72 Lung cancer COPD (chronic obstructive pulmonary disease) Other Family history non-contributory No family history of adverse response to anesthesia Denies family history of Ovarian cancer Prostate cancer Diabetes Myocardial infarction Breast cancer Colorectal cancer Stroke Social History Smoking Status: Former smoker Tobacco Type: Cigarettes Age Started Using Tobacco: 19; Age Quit Using Tobacco: 35; packs per day: 1; Second Hand Exposure: Yes (hx growing up); Do You Dip or Chew Tobacco: No; Hx Alcohol Use: No Hx Substance Use: No Preferred Language: [place] Communication Ability: Effective Visual Impairment: No Limitations Hearing Ability: Hard of Hearing Training Program Manager Required: No Beliefs That Will Affect Care: None marital status: Current Living Situation: Spouse current occupational status: retired current occupation: retired from [employer] How many Children do You have: 2 Feels Safe at Home: Yes Childhood Exposure to Second-Hand Smoke: Yes Diet: regular caffeine: Yes (Pepsi at least 2 liters/day) during the past year weight has: remained stable Dental Care, Regularly: Yes Physical Activity Frequency: Daily Physical Activity Frequency Comment: sking/four wheeling/active lifestyle Seatbelt Use: always Sunscreen Use: Yes Do you think of yourself as: straight/heterosexual Assistive Devices: None Review of Systems Review of Systems: All systems reviewed & are unremarkable except as noted in HPI & below Physical Exam Constitutional: + ill appearing and + thin; no acute dis tress Neck: normal visual inspection Respiratory: no respiratory distress and no labored breathing Musculoskeletal: Head/Neck/Chest: normocephalic Skin: Appears pale, no visible rashes or lesions Neurologic: moves all extremities and awake Psychiatric: A+Ox3, euthymic affect Results & Data Vital Signs (Past 12 Hours) Vital Signs Temp Pulse Pulse Resp BP BP Pulse Ox 09/16/24 17:10 09/16/24 17:02 37 C 84 16 127/68 97 09/16/24 16:15 77 21 112/73 95 09/16/24 16:00 69 20 113/73 95 09/16/24 15:45 68 24 108/80 95 09/16/24 15:30 68 24 112/71 96 09/16/24 15:15 118/90 09/16/24 14:45 67 24 118/60 95 09/16/24 14:15 66 27 H 113/78 96 09/16/24 14:00 69 18 118/66 92 09/16/24 13:45 66 15 117/64 90 09/16/24 13:15 67 16 110/90 94 09/16/24 13:00 71 16 113/70 93 09/16/24 12:45 69 18 110/73 95 09/16/24 12:30 77 17 115/75 97 09/16/24 12:26 77 09/16/24 12:15 77 21 106/70 95 09/16/24 12:00 88 28 H 119/79 96 09/16/24 11:45 81 22 104/79 97 09/16/24 11:45 85 14 104/79 95 09/16/24 11:30 83 12 94/68 L 96 09/16/24 11:30 85 19 94/68 L 96 09/16/24 11:20 96 09/16/24 10:48 36.7 C 97 H 20 115/79 97 O2 Del Method 09/16/24 17:10 Room Air 09/16/24 17:02 Room Air 09/16/24 16:15 Room Air 09/16/24 16:00 Room Air 09/16/24 15:45 Room Air 09/16/24 15:30 Room Air 09/16/24 15:15 09/16/24 14:45 Room Air 09/16/24 14:15 09/16/24 14:00 Room Air 09/16/24 13:45 Room Air 09/16/24 13:15 Room Air 09/16/24 13:00 Room Air 09/16/24 12:45 Room Air 09/16/24 12:30 Room Air 09/16/24 12:26 09/16/24 12:15 Room Air 09/16/24 12:00 Room Air 09/16/24 11:45 Room Air 09/16/24 11:45 Room Air 09/16/24 11:30 Room Air 09/16/24 11:30 Room Air 09/16/24 11:20 Room Air 09/16/24 10:48 Room Air PG Care Time/CCT Total # of Minutes Spent Total Time Spent with Patient: Total time spent is greater than 50% in coordination of care (as documented) at patient's floor/unit and/or counseling patient: Coding Level of Care Code 43466 INT INP/OBS CARE 2/55MIN Diagnoses Perinephric hematoma S37.019A UTI (urinary tract infection) N39.0 COVID-19 U07.1
[2024-09-16 20:25] LABS: Appearance Urine Slightly Cloudy (Clear); Bilirubin Urine Negative (Negative); Blood Urine 3+ (Negative); Color Urine Yellow; Glucose Urine UA Negative (Negative); Ketones Urine Negative (Negative); Leukocyte Esterase Urine 3+ (Negative); Nitrite Urine Positive (Negative); Protein Urine 2+ (Negative); Specific Gravity Urine 1.025 (1.000-1.030); Urobilinogen Urine Negative (Negative); pH Urine 5.5 (4.5-7.5)
[2024-09-16] MEDS: cefTRIAXone SODIUM 2,000 MG/50 ML BAG IV SCH (21:29)
[2024-09-16] MEDS: TAMSULOSIN HCL 0.4 MG CAP PO SCH (21:41)
[2024-09-17 08:24] LABS: Basophils # (auto) 0.04 K/uL (0.00-0.20); Basophils % (auto) 0.3 %; Eosinophils # (auto) 0.03 K/uL (0.00-0.50); Eosinophils % (auto) 0.3 %; Hematocrit (blood only) 30.6 % (42.0-52.0); Hemoglobin 9.7 g/dl (14.0-18.0); Immature Granulocytes # (auto) 0.07 K/uL (0.01-0.20); Immature Granulocytes % (auto) 0.6 %; Lymphocytes # (auto) 0.78 K/uL (1.20-3.40); Lymphocytes % (auto) 6.5 %; Mean Corpuscular Hemoglobin 28.4 pg (25.0-34.0); Mean Corpuscular Hgb Conc 31.7 g/dL (32.0-36.0); Mean Corpuscular Volume 89.5 fL (80.0-100.0); Mean Platelet Volume 9.3 fL (9.4-12.4); Monocytes # (auto) 1.25 K/uL (0.11-0.59); Monocytes % (auto) 10.5 %; Neutrophils # (auto) 9.77 K/uL (1.40-6.50); Neutrophils % (auto) 81.8 %; Platelet Count 494 K/uL (130-400); RDW Coefficient of Variation 13.6 % (11.5-14.5); Red Blood Count 3.42 M/uL (4.70-6.10); White Blood Count 11.94 K/ul (4.8-10.8)
[2024-09-17 08:35] LABS: Albumin Globulin Ratio 0.6 (0.9-2); Albumin Level 2.5 gm/dl (3.4-5.0); Bilirubin,Total 0.7 mg/dl (0.2-1.0); Calcium 8.1 mg/dl (8.6-10.3); Creatinine Clr Calc Pharmacy 46.7 ml/min; Globulin 4.4 gm/dl (2.5-4.0); Magnesium 1.8 mg/dl (1.7-2.4); Potassium 4.2 mmol/L (3.5-5.1); Total Protein 6.9 gm/dl (6.0-8.3)
[2024-09-17] MEDS: FERROUS SULFATE 325 MG TAB PO SCH (08:38)
[2024-09-17] MEDS: METOPROLOL SUCC 25MG EXT REL TAB PO SCH (08:38)
[2024-09-17] MEDS: PANTOprazole 40 MG TAB PO SCH (08:38)
--- NOTE | 2024-09-17 13:47 | Hospitalist Progress Note ---
Date of Service September 17, 2024 Assessment & Plan (1) Perinephric hematoma: Plan: Patient presented to the ED on 09/17 after outpatient lab values. -CTAP 09/16: right ureteral stent in place. no hydronephrosis. Increase in size of complex right renal sinus fluid collection measuring [id number]. interval decrease in foci of increased attenuation consistent w/ evolving hematoma. associated compression of right renal parenchyma and increasing mass effect upon right hepatic lobe. delineation b/w renal fluid collection & right hepatic lobe is difficult. -CBC reviewed 09/17: hgb 9.7, component of dilution as patient received 3L IVF 09/16. Leukocytosis downtrending (11.94) -urology consultation reviewed from 09/16: recommend supportive care and IV abx for UTI. Transfer to tertiary care if he clinically worsens. -IV Rocephin 2g q24h. -UC pending. Previously from 09/01 + for klebsiella pneumoniae -BC negative at 24h ayana. AM CBC, BMP, CRP (2) UTI (urinary tract infection): Plan: Sepsis POA - Recently treated for klebsiella UTI initially with ceftriaxone and then transitioned to 10-day of cefadroxil - Repeat UA from 09/15 appears grossly infected, urine culture pending - Treat based off of prior sensitivities, transition to ceftriaxone 2g IV daily as noted above (3) Elevated LFTs: Plan: New since his 09/01/24 admission - Inflammation related to adjacent perinephric inflammation/hematoma vs COVID infection vs DILI - Hold atorvastatin - Reviewed LFTs 09/17: AST/ALT 73/73, Alk phos 183. AM CMP (4) COVID-19: Plan: Uncertain chronicity, tested positive on 09/15 -CXR reviewed from 09/16: negative -supportive care - added incentive spirometry Plan Chronic conditions: A fib: rate controlled. continue metoprolol succ and hold Eliquis HTN - continue metoprolol. Losartan held as above. GERD - continue protonix DVT prophylaxis: SCD's Diet: heart healthy Disposition: medical Code status: DNR/DNI. Admission and Anticipated Discharge Date Admission Date: September 16, 2024 Subjective Patient seen and examined this morning. Patient reports to be feeling better today. States he feels stronger. He denies any abnormal urinary symptoms. he denies hematuria. States he has urinary incontinence but this is baseline for him. Physical Exam 2 Constitutional: WD/WN, vitals as above Eyes: PERRL, conjunctivae normal, anicteric sclerae Respiratory: normal respiratory effort, lungs clear to auscultation Cardiovascular: RRR, no murmur, no edema Skin: no rashes, warm and dry Psychiatric: A+Ox3, euthymic affect Results & Data Results & Data Vital Signs (Past 12 Hours) Vital Signs Temp Pulse Resp BP Pulse Ox O2 Del Method 09/17/24 08:37 36.8 C 74 16 113/70 93 Room Air Laboratory Results 09/17/24 07:56 09/17/24 07:56 PG Care Time/CCT Total # of Minutes Spent Total Time Spent with Patient: Total time spent is greater than 50% in coordination of care (as documented) at patient's floor/unit and/or counseling patient: Coding Level of Care Code 68912 SUB INP/OBS CARE 2/35MIN Diagnoses Perinephric hematoma S37.019A UTI (urinary tract infection) N39.0 Elevated LFTs R79.89 COVID-19 U07.1
--- NOTE | 2024-09-17 14:44 | Urology Progress Note ---
Date of Service September 17, 2024 Assessment & Plan (1) Perinephric hematoma: (2) UTI (urinary tract infection): (3) COVID-19: Plan 73 yo/M admitted with complex right renal sinus fluid collection consistent with evolving hematoma, concern for UTI, and Covid-19 infection. - Pt afebrile and hemodynamically stable - Labs show leukocytosis improving 13.82-11.94 today, hemoglobin 9.7, and creatinine 1.50. - Urine and blood cultures pending - Continues on Ceftriaxone - Voiding spontaneously, continue to monitor. Bladder scan PRN. - CTAP reviewed - Complex right renal sinus fluid collection now measuring 10 x 8 x 7 cm with interval decrease in foci of increased attenuation consistent with an evolving hematoma, right ureteral stent in place, and no hydronephrosis. - No plan for urological intervention at this time - At this point, suspect most of his symptoms are related to COVID-19 infection. - For now, would hold off on any intervention regarding his hematoma such as drainage. - Would recommend supportive care, antibiotic therapy, and ongoing monitoring. - If he does not improve or if he clinically worsens, could consider transfer possible percutaneous drainage of perinephric hematoma or drain placement. - Urology will follow along. Admission and Anticipated Discharge Date Admission Date: September 16, 2024 Subjective Patient seen at bedside today. Awake and sitting up in bed on arrival. No acute distress. Reports he is feeling much better today. Appetite has improved. Denies any significant pain. Has been ambulating without issue. Denies fever, chills, nausea, vomiting. Still with urinary incontinence which is his baseline. Denies hematuria or dysuria. Review of Systems Constitutional: as per Subjective / HPI Genitourinary: + as per Subjective / HPI Physical Exam Constitutional: no acute distress Respiratory: no respiratory distress and no labored breathing Neurologic: moves all extremities and awake Psychiatric: A+Ox3, euthymic affect Results & Data Vital Signs (Past 12 Hours) Vital Signs Temp Pulse Resp BP Pulse Ox O2 Del Method 09/17/24 08:37 36.8 C 74 16 113/70 93 Room Air PG Care Time/CCT Total # of Minutes Spent Total Time Spent with Patient: Total time spent is greater than 50% in coordination of care (as documented) at patient's floor/unit and/or counseling patient: Coding Level of Care Code 59210 SUB INP/OBS CARE 35MIN Diagnoses Perinephric hematoma S37.019A UTI (urinary tract infection) N39.0 COVID-19 U07.1
[2024-09-17] MEDS: dexAMETHasone 1 MG TAB PO SCH (17:25)
[2024-09-18] MEDS: MELATONIN 3 MG TAB PO PRN (03:14)
--- NOTE | 2024-09-18 04:10 | Communication Note ---
Date of Service: September 18, 2024 Notified by nursing of concern for symptomatic tachycardia. HR in 130s, with concern for irregular rhythm- otherwise hemodynamically stable and afebrile. Evaluated pt at bedside and rates down to 100s. States that he woke up feeling anxious, with chills. Now feeling better. Rates down to 90s/100s. History of paroxysmal afib on metoprolol for rate control and anticoagulated with Eliquis- currently on hold due to perinephric hematoma. Repeat labs pending. Upgrade to [employer] to monitor rates.
[2024-09-18 07:17] LABS: Potassium 3.9 mmol/L (3.5-5.1)
[2024-09-18 07:18] LABS: Albumin Globulin Ratio 0.6 (0.9-2); Albumin Level 2.4 gm/dl (3.4-5.0); BUN Creatinine Ratio 16.2 (10-20); Bilirubin,Total 0.6 mg/dl (0.2-1.0); C Reactive Protein 7.55 mg/dl (0-0.5); Calcium 8.2 mg/dl (8.6-10.3); Creatinine Clr Calc Pharmacy 49.3 ml/min; Globulin 4.3 gm/dl (2.5-4.0); Magnesium 1.7 mg/dl (1.7-2.4); Total Protein 6.7 gm/dl (6.0-8.3)
[2024-09-18 07:28] LABS: Hematocrit (blood only) 27.3 % (42.0-52.0); Hemoglobin 9.1 g/dl (14.0-18.0); Mean Corpuscular Hemoglobin 29.2 pg (25.0-34.0); Mean Corpuscular Hgb Conc 33.3 g/dL (32.0-36.0); Mean Corpuscular Volume 87.5 fL (80.0-100.0); Mean Platelet Volume 9.7 fL (9.4-12.4); Platelet Count 488 K/uL (130-400); RDW Coefficient of Variation 13.7 % (11.5-14.5); RDW Standard Deviation 43.6 fL (36.4-46.3); Red Blood Count 3.12 M/uL (4.70-6.10); White Blood Count 31.47 K/ul (4.8-10.8)
--- NOTE | 2024-09-18 09:54 | Urology Progress Note ---
Date of Service September 18, 2024 Assessment & Plan (1) Perinephric hematoma: (2) UTI (urinary tract infection): (3) COVID-19: Plan 73 yo/M admitted with complex right renal sinus fluid collection consistent with evolving hematoma, concern for UTI, and Covid-19 infection. Significant increase in leukocytosis overnight, unclear if this is related to him receiving steroids or evolving infection. He is currently afebrile with stable vital signs, arguing against significant worsening of this infection. Would consider rechecking CBC. Urine and blood cultures negative thus far. Agree with continuing broad- spectrum antibiotics and supportive care for COVID. Would hold off drainage of his hematoma unless he starts to clinically deteriorate. Urology will follow along Admission and Anticipated Discharge Date Admission Date: September 16, 2024 Subjective Reports that he is feeling okay, better than when he arrived. Not having any fevers or chills. He denies any flank pain. He is voiding well. He denies any hematuria or dysuria. WBC increased from yesterday to today from 11.9 to 31.4, reportedly he was receiving steroids hemoglobin 9.1, down from 9.7. Liver enzymes are slightly further elevated. Blood cultures from 09/16/2024 are negative so far, urine culture with pinpoint growth. He remains on broad-spectrum antibiotics with ceftriaxone. Physical Exam Physical Exam: Seated in bed, breathing comfortably on room air, NAD. Results & Data Vital Signs (Past 12 Hours) Vital Signs Temp Pulse Pulse Resp BP BP Pulse Ox 09/18/24 08:43 09/18/24 08:37 36.9 C 80 129/73 90 09/18/24 07:41 87 09/18/24 05:26 09/18/24 04:59 83 09/18/24 04:57 37.0 C 86 18 121/70 91 09/18/24 02:40 105 H 09/18/24 02:20 36.8 C 135 H 22 165/82 H 95 O2 Del Method O2 Flow Rate 09/18/24 08:43 Room Air 09/18/24 08:37 Room Air 09/18/24 07:41 09/18/24 05:26 Room Air 09/18/24 04:59 09/18/24 04:57 Room Air 09/18/24 02:40 09/18/24 02:20 Nasal Cannula 2 PG Care Time/CCT Total # of Minutes Spent Total Time Spent with Patient: Total time spent is greater than 50% in coordination of care (as documented) at patient's floor/unit and/or counseling patient: Coding Level of Care Code 99610 SUB INP/OBS CARE 1/25MIN Diagnoses Perinephric hematoma S37.019A UTI (urinary tract infection) N39.0 COVID-19 U07.1
--- NOTE | 2024-09-18 14:32 | Hospitalist Progress Note ---
Date of Service September 18, 2024 Assessment & Plan (1) Perinephric hematoma: Plan: Patient presented to the ED on 09/17 after outpatient lab values. -CTAP 09/16: right ureteral stent in place. no hydronephrosis. Increase in size of complex right renal sinus fluid collection measuring [id number]. interval decrease in foci of increased attenuation consistent w/ evolving hematoma. associated compression of right renal parenchyma and increasing mass effect upon right hepatic lobe. delineation b/w renal fluid collection & right hepatic lobe is difficult. -CBC reviewed 09/18: leukocytosis of 31.47 (likely from receiving steroids 09/17 vs evolving infection) -BMP reviewed 09/18: creatinine improving to 1.42. -CRP reviewed 09/18: 7.55 -procalcitonin 09/18: 34.90 -urology progress reviewed from 09/17: recommend supportive care and IV abx for UTI. Transfer to tertiary care if he clinically worsens. -IV Rocephin 2g q24h. -UC growing ita albicans. Previously from 09/01 + for klebsiella pneumoniae plan to continue Rocephin until 09/19 then reassess -BC negative at 48h ayana. -patient had tachycardia overnight 09/17. was very upset during the time it occurred. Transferred to telemetry. patient then upset he had roommate, VS stable, downgraded back to medical and transferred back to previous room. AM CBC, BMP, CRP, procal (2) UTI (urinary tract infection): Plan: Sepsis POA - Recently treated for klebsiella UTI initially with ceftriaxone and then transitioned to 10-day of cefadroxil - Repeat UA from 09/15 appears grossly infected, urine culture positive for ita albicans - Treat based off of prior sensitivities, transition to ceftriaxone 2g IV daily as noted above (3) Elevated LFTs: Plan: New since his 09/01/24 admission - Inflammation related to adjacent perinephric inflammation/hematoma vs COVID infection vs DILI - Hold atorvastatin - Reviewed LFTs 09/18: AST/ALT 141/109, Alk phos 236. AM CMP (4) COVID-19: Plan: Uncertain chronicity, tested positive on 09/15 -CXR reviewed from 09/16: negative -supportive care - added incentive spirometry -started on dexamethasone 09/17 for O2 at 90%, patient then refused further doses 09/18 given elevated WBC after 1 dose will hold off on further steroids for now. -continue to monitor symptoms. Plan Chronic conditions: A fib: rate controlled. continue metoprolol succ and hold Eliquis HTN - continue metoprolol. Losartan held as above. GERD - continue protonix DVT prophylaxis: SCD's Diet: heart healthy Disposition: medical Code status: DNR/DNI. Updated at [facility] 09/18 Admission and Anticipated Discharge Date Admission Date: September 16, 2024 Subjective Patient seen and examined this morning with at bedside. Patient upset he had to change rooms overnight and upset he has roommate. Patient overall feels well. He refused further doses of dexamethasone for his COVID infection. Denies any urinary symptoms. Physical Exam 2 Constitutional: WD/WN, vitals as above Eyes: PERRL, conjunctivae normal, anicteric sclerae Respiratory: normal respiratory effort, lungs clear to auscultation Cardiovascular: RRR, no murmur, no edema Skin: no rashes, warm and dry Psychiatric: A+Ox3, euthymic affect Results & Data Results & Data Vital Signs (Past 12 Hours) Vital Signs Temp Pulse Pulse Resp BP BP Pulse Ox 09/18/24 12:06 36.8 C 94 H 16 134/74 95 09/18/24 08:43 09/18/24 08:37 36.9 C 80 129/73 90 09/18/24 07:41 87 09/18/24 05:26 09/18/24 04:59 83 09/18/24 04:57 37.0 C 86 18 121/70 91 09/18/24 02:40 105 H O2 Del Method 09/18/24 12:06 Room Air 09/18/24 08:43 Room Air 09/18/24 08:37 Room Air 09/18/24 07:41 09/18/24 05:26 Room Air 09/18/24 04:59 09/18/24 04:57 Room Air 09/18/24 02:40 Laboratory Results 09/18/24 06:04 09/18/24 06:04 PG Care Time/CCT Total # of Minutes Spent Total Time Spent with Patient: Total time spent is greater than 50% in coordination of care (as documented) at patient's floor/unit and/or counseling patient: Coding Level of Care Code 36574 SUB INP/OBS CARE 3/50MIN Diagnoses Perinephric hematoma S37.019A UTI (urinary tract infection) N39.0 Elevated LFTs R79.89 COVID-19 U07.1
--- NOTE | 2024-09-18 16:23 | XRay Report ---
XR KUB/Abdomen 1 view CLINICAL HISTORY: leukocytosis TECHNIQUE: 1 view of the abdomen was obtained. Comparison: None available at the time of this dictation. FINDINGS: Right double-J stent is seen. Degenerative changes are seen in the visualized skeleton. The bowel gas pattern is nonobstructive. Small stool burden is seen. IMPRESSION: Nonobstructive bowel gas pattern. ACT 112: Negative or not required by law. Electronically signed by: Oscar Rod M.D. 09/18/2024 4:22 PM
[2024-09-18 16:56] LABS: Hematocrit (blood only) 29.4 % (42.0-52.0); Mean Corpuscular Hemoglobin 29.3 pg (25.0-34.0); Mean Corpuscular Volume 86.2 fL (80.0-100.0); Mean Platelet Volume 9.7 fL (9.4-12.4); Platelet Count 457 K/uL (130-400); RDW Coefficient of Variation 13.8 % (11.5-14.5); RDW Standard Deviation 43.6 fL (36.4-46.3); Red Blood Count 3.41 M/uL (4.70-6.10); White Blood Count 32.91 K/ul (4.8-10.8)
[2024-09-18] MEDS: FLUCONAZOLE 100 MG TAB PO SCH (17:04)
[2024-09-18 17:14] LABS: BUN Creatinine Ratio 16.9 (10-20); C Reactive Protein 8.76 mg/dl (0-0.5); Calcium 8.5 mg/dl (8.6-10.3); Creatinine Clr Calc Pharmacy 49.3 ml/min; Potassium 4.7 mmol/L (3.5-5.1)
[2024-09-18] MEDS ORDERED: VANCOMYCIN CONSULT ACTIVE PRN (17:26)
[2024-09-18 17:36] LABS: Basophils # (auto) 0.06 K/uL (0.00-0.20); Basophils % (auto) 0.2 %; Immature Granulocytes # (auto) 0.41 K/uL (0.01-0.20); Immature Granulocytes % (auto) 1.3 %; Lymphocytes # (auto) 0.83 K/uL (1.20-3.40); Lymphocytes % (auto) 2.5 %; Monocytes # (auto) 1.72 K/uL (0.11-0.59); Monocytes % (auto) 5.3 %; Neutrophils # (auto) 29.53 K/uL (1.40-6.50); Neutrophils % (auto) 90.7 %
[2024-09-18] MEDS: SODIUM CHLORIDE 0.9% 1,000 ML IV SCH (17:56)
[2024-09-18] MEDS: VANCOMYCIN HCL 2,000 MG in SODIUM CHLORIDE 0.9% 500 ML IV ONE (18:08)
[2024-09-18] MEDS: CEFEPIME 2000MG 2,000 MG/20 ML SYR IV SCH (18:09)
--- NOTE | 2024-09-18 19:33 | Pharmacy Report ---
Pharmacy PK ABX Note - Date of Service September 18, 2024 - Assessment and Plan Assessment * Mr Pal is a 73 year old M receiving vancomycin/cefepime for treatment of UTI. * Pertinent microbiologic data includes: UCx 09/01/24 -- UCx 09/16: Christen albicans * Pt was treated with ceftriaxone for above infection and then transitioned to 10-days of cefadroxil. * Pt was admitted 09/16 with perinephric hematoma, confirmed with CTAP. * Pt receiving ceftriaxone 09/16-09/17. Overnight 09/17 pt tachycardic, agitated. WBC elevated (d/t steroids rec'd vs infection?), PCT trending up (0.46 --> 34.9 --> 53.5). Currently afebrile, vital signs stable. * Urology consult in place * Abx coverage broadened today. Plan Vancomycin * Loading dose: 2000 mg IV x 1 * Maintenance dose: 1250 mg IV every 24 hours * Regimen is predicted to achieve target AUC/JOEL of 400-600 mg/L.hr * Will obtain vanc level in 1-2 days if patient remains on vanc therapy. Cefepime 2gm IV q12h, renally dosed for CrCl ~49mL/min Pharmacy will continue to follow and will adjust dose/frequency as necessary. Thank you. Pharmacy has transitioned to AUC monitoring for vancomycin. AUC/JOEL is the preferred PK/PD target and is associated with decreased risk of nephrotoxicity compared to traditional trough targets.
[2024-09-19 06:33] LABS: Hematocrit (blood only) 28.1 % (42.0-52.0); Hemoglobin 9.2 g/dl (14.0-18.0); Mean Corpuscular Hemoglobin 28.5 pg (25.0-34.0); Mean Corpuscular Hgb Conc 32.7 g/dL (32.0-36.0); Mean Platelet Volume 9.7 fL (9.4-12.4); Platelet Count 392 K/uL (130-400); RDW Standard Deviation 44.9 fL (36.4-46.3); Red Blood Count 3.23 M/uL (4.70-6.10); White Blood Count 23.28 K/ul (4.8-10.8)
[2024-09-19 06:55] LABS: Basophils # (auto) 0.03 K/uL (0.00-0.20); Basophils % (auto) 0.1 %; Eosinophils # (auto) 0.01 K/uL (0.00-0.50); Immature Granulocytes # (auto) 0.26 K/uL (0.01-0.20); Immature Granulocytes % (auto) 1.1 %; Lymphocytes # (auto) 0.92 K/uL (1.20-3.40); Monocytes # (auto) 1.67 K/uL (0.11-0.59); Monocytes % (auto) 7.2 %; Neutrophils # (auto) 20.39 K/uL (1.40-6.50); Neutrophils % (auto) 87.6 %; Polychromasia 1+
[2024-09-19 07:14] LABS: Albumin Globulin Ratio 0.5 (0.9-2); Albumin Level 2.2 gm/dl (3.4-5.0); BUN Creatinine Ratio 20.3 (10-20); Bilirubin,Total 0.4 mg/dl (0.2-1.0); C Reactive Protein 7.94 mg/dl (0-0.5); Calcium 7.9 mg/dl (8.6-10.3); Creatinine Clr Calc Pharmacy 50.8 ml/min; Globulin 4.1 gm/dl (2.5-4.0); Magnesium 1.8 mg/dl (1.7-2.4); Potassium 4.8 mmol/L (3.5-5.1); Total Protein 6.3 gm/dl (6.0-8.3)
[2024-09-19] MEDS: VANCOMYCIN HCL 1,250 MG in SODIUM CHLORIDE 0.9% 250 ML IV SCH (08:11)
[2024-09-19 08:16] VITALS: TEMP 97.9
--- NOTE | 2024-09-19 09:16 | Urology Progress Note ---
Date of Service September 19, 2024 Assessment & Plan (1) Perinephric hematoma: (2) UTI (urinary tract infection): (3) COVID-19: Plan 73 yo/M admitted with complex right renal sinus fluid collection consistent with evolving hematoma, concern for UTI, and Covid-19 infection. Leukocytosis, procalcitonin and CRP all improving on vancomycin, cefepime and fluconazole. Most recent urine culture with Christen albicans/Dubliniensis. Blood cultures pending. Clinically, he does not look septic at this point. He does not seem to be having any symptoms that make me think that his perinephric hematoma is infected, however his lab work remains concerning. Tentative plan to reevaluate fluid collection with CT scan with contrast to evaluate for any drainable areas. Urology will follow along Admission and Anticipated Discharge Date Admission Date: September 16, 2024 Subjective Feeling better this morning Denies any fevers or chills Denies any significant flank pain Has been voiding well Feels like his cough is improving Leukocytosis improved from 32.9-23.2. Liver enzymes improved, CRP has decreased slightly from 8.7 to 7.9. Procalcitonin down from 53.5 to 44.3 Physical Exam Physical Exam: Seated in bed, NAD Breathing comfortably on room air Tachycardic on the monitor Results & Data Vital Signs (Past 12 Hours) Vital Signs Temp Pulse Resp BP Pulse Ox O2 Del Method 09/19/24 08:15 36.6 C 127 H 16 109/66 94 Room Air PG Care Time/CCT Total # of Minutes Spent Total Time Spent with Patient: Total time spent is greater than 50% in coordination of care (as documented) at patient's floor/unit and/or counseling patient: Coding Level of Care Code 72816 SUB INP/OBS CARE 25MIN Diagnoses Perinephric hematoma S37.019A UTI (urinary tract infection) N39.0 COVID-19 U07.1
[2024-09-19] MEDS: OPTIRAY 320 100ml IV ONE (09:21)
--- NOTE | 2024-09-19 09:46 | XRay Report ---
XR chest 2V PA/lateral CLINICAL HISTORY: leukocytosis TECHNIQUE: 2 views of the chest were obtained. Comparison: Comparison is made to chest radiograph 09/16/2024 FINDINGS: No lines and tubes are seen. Calcified aortic knob is seen. The lungs are clear. No evidence of pleur al effusion or pneumothorax. IMPRESSION: No acute chest disease. ACT 112: Negative or not required by law. Electronically signed by: Oscar Rod M.D. 09/19/2024 9:45 AM
--- NOTE | 2024-09-19 10:46 | CT Scan Report ---
CT renal wo/w con CLINICAL HISTORY: worsening labs/ hematoma vs abscess TECHNIQUE: Helical axial images of the abdomen were obtained. Automated dose lowering techniques and/ or adjustment according to patient size were utilized for this exam. This exam was performed with in travenous contrast. CT DOSE: 1797.73 mGy.cm Comparison: Comparison is made to CT abdomen pelvis 09/01/[address] abdomen 09/16/2024 FINDINGS: Lower chest: Mild sinus changes are seen. Liver: Hepatic steatosis is noted. There is interval invasion of the hepatic parenchyma from the irre gular renal mass with lobular borders and surrounding enhancement. Gallbladder and biliary tree: No calcified gallstones. Normal caliber wall. No intra- or extrahepatic biliary ductal dilation. Pancreas: Unremarkable, no focal lesions. Spleen: Unremarkable. Adrenals: Unremarkable. Kidneys and ureters: Interval enlargement of the previously noted complex fluid collection in the wendy er. This measures approximately 10 cm in diameter, previously 9 and 8 cm on the prior 2 exams. There is interval development of multiple exophytic lobular components and invasion of the hepatic parenchy ma. It does contact the gallbladder but no definite connection to the gallbladder is seen. A right ur eteral stent is seen. Bowel: A hiatal hernia is seen. Diverticulosis is seen without diverticulitis. Lymph nodes Retroperitoneal: Unremarkable. Mesenteric: Unremarkable. Peritoneum: Normal. Vessels: Atherosclerotic calcifications are seen. Abdominal wall: Unremarkable. Bones: Degenerative changes in the visualized spine. IMPRESSION: Interval enlargement of the right renal mass with lobular borders, invasion of the liver, an enhancin g kyle. Findings are compatible with superinfection of previously noted hematoma. ACT 112: Negative or not required by law. Electronically signed by: Oscar Rod M.D. 09/19/2024 10:44 AM
[2024-09-19 12:47] VITALS: RESP 18; O2SAT 96
[2024-09-19] MEDS: SODIUM CHLORIDE 0.9% 1,000 ML IV SCH (13:20)
[2024-09-19] MEDS: SODIUM CHLORIDE 0.9% 500 ML IV SCH (13:20)
--- NOTE | 2024-09-19 14:22 | Discharge Summary ---
Discharge Summary Date of Service September 19, 2024 Principal Dx & Hospital Course #1 = Principal Diagnosis (1) Perinephric hematoma: Patient presented to the ED on 09/17 after outpatient lab values. -CTAP 09/16: right ureteral stent in place. no hydronephrosis. Increase in size of complex right renal sinus fluid collection measuring [id number]. interval decrease in foci of increased attenuation consistent w/ evolving hematoma. associated compression of right renal parenchyma and increasing mass effect upon right hepatic lobe. delineation b/w renal fluid collection & right hepatic lobe is difficult. -CBC 09/19 leukocytosis of 23.28, hgb 9.2 -CMP 09/19: kidney function stable, LFTs downtrending -Procalcitonin 09/19: downtrending to 44.30 -CRP 09/19: downtrending to 7.94. -abx coverage widened evening of 09/18 w/ Cefepime and Vancomycin UC + for Ita - Diflucan added. -MRSA screen negative 09/19, Vancomycin discontinued Repeat CT of kidney on 09/19 showed worsening of right hematoma concern for superinfection in patients right kidney urology recommending transfer to tertiary care for drain placement Madeleine contacted via transfer center and patient was accepted. prior to leaving, patient consistently tachycardic in 150s upgraded to PCU, given 1L bolus of NSS and 500mL additional at 125ml/hr. (2) UTI (urinary tract infection): Sepsis POA - Recently treated for klebsiella UTI initially with ceftriaxone and then transitioned to 10-day of cefadroxil - Repeat UA from 09/15 appears grossly infected, urine culture positive for ita albicans Plan as above. (3) Elevated LFTs: New since his 09/01/24 admission - Inflammation related to adjacent perinephric inflammation/hematoma vs COVID infection vs DILI - Hold atorvastatin - LFTs downtrending 09/19. AM CMP (4) COVID-19: Uncertain chronicity, tested positive on 09/15 -CXR reviewed from 09/16: negative -supportive care - added incentive spirometry -started on dexamethasone 09/17 for O2 at 90%, patient then refused further doses 09/18 given elevated WBC after 1 dose will hold off on further steroids for now. -continue to monitor symptoms. Plan Chronic conditions: A fib: rate controlled. continue metoprolol succ and hold Eliquis HTN - continue metoprolol. Losartan held as above. GERD - continue protonix Updated at bedside 09/19. Admission HPI Per Admitting Provider Girish is a 73 yo M with a pmhx of bladder mass, BPH and h/o prostate CA s/p radiation and TURP with stent exchange in the R ureter due to scarring/strictures on 08/16/[address] Frankel who presents to the ER today after being instructed to come due to abnormal labs. Patient was hospitalized 09/01 through 09/04 for perinephric hematoma approx 9.6 x 6.6 x 6.4 cm in size within the right renal sinus. He was also found to have a grossly infected UA. Marivel gamino was previously on eliquis due to afib which was held. He was started on empiric antibiotic therapy with ceftriaxone. His urine culture grew klebsiella pneumoniae with some intermediate sensitivities and resistance. He was discharged home to complete a course of cefadroxil. He presented for urology follow up on 09/15, labs were ordered at that time. He reportedly felt weak and played out, staff did not allow him to transport himself home and instead called his . He did have the labs completed and those were forwarded to his PCP today who contacted the patient and instructed him to go directly to the ER. The patient denies fever, chills. He is reporting some low back pain on the right side that he rates a 3/10. He endorses loss of appetite, denies chest pain or dyspnea, abd pain, n/v/d. His labs from 09/15 are notable for a wbc count of 14.89 with neutrophilic predominance and a creatinine of 2.0, above his baseline of 1.6, LFTs were also elevated, and repeat UA appeared grossly infected. He tested positive for COVID-19 as well on 09/15. His repeat labs today, show a persistently elevated wbc count of 13.89, stable H&H, platelets of 601, creatinine of 1.82 and an elevated lactate of 2.3. Repeat urine studies and blood cultures collected. He was medicated with a dose of IV cefepime and daptomycin in the ER. Repeat CTAP without contrast demonstrates an evolving 10 x 8 x 7 cm complex fluid collection in the right renal sinus. Case was discussed with urology who felt that he could be admitted here and if no improvement, would require transfer to tertiary center for surgical intervention. Patient has been referred for admission to the hospital medicine team. Discharge Exam Constitutional WD/WN, vitals as above Eyes PERRL, conjunctivae normal, anicteric sclerae Respiratory normal respiratory effort, lungs clear to auscultation Cardiovascular RRR, no murmur, no edema Gastrointestinal (Abdomen) - CVA tenderness Skin no rashes, warm and dry Psychiatric A+Ox3, euthymic affect Discharge Plan Discharge Items Patient Disposition: Transfer Acute Care Hospital Reason For Visit: UTI, EVOLVING R FLUID COLLECTION R KIDNEY Discharge Diagnosis: UTI, hematoma right kidney Activity: Resume your previous activity Non-emergency contact: Primary Care Provider and Urologist Call non-emergency contact if: you have any medication questions, your pain is not controlled and you have a fever Follow-up/Referrals: Uri Hand, [Primary Care Provider] - Diet: Heart Healthy Addtl Attending Provider Instructions: Mr. Pal, You were recently hospitalized after outpatient lab work had been abnormal. You also tested positive for COVID-19. You underwent a CAT scan today, 09/19 that revealed your right kidney hematoma has worsened in size and there was concern for infection. You have been transferred to [facility] for further care. Please follow their instructions upon discharge. Sincerely, Dasia Galloway PA-C Pending Studies at Discharge: Yes Studies:: blood cultures Stand-Alone Forms: My [facility] Skilled Items Patient informed of condition?: Yes DNR: Yes Discharge Level of Care: Other Communicable Disease: No Discharge Prognosis: Stable Lines: Peripheral IV Urinary Catheter: No Medications and DC Order Prescriptions: New fluconazole [Diflucan] 100 mg Tablet 200 mg PO QAM Qty: 7 0RF Continued cholecalciferol (vitamin D3) 25 mcg (1,000 unit) capsule 25 mcg PO QAM Rx Instructions: out of tablets at this time tamsulosin 0.4 mg capsule 0.8 mg PO HS Qty: 180 3RF metoprolol succinate 25 mg tablet extended release 24 hr 25 mg PO QAM Qty: 90 3RF pantoprazole 40 mg tablet,delayed release (DR/EC) 40 mg PO QAM Qty: 90 3RF ferrous sulfate 325 mg (65 mg iron) tablet,delayed release (DR/EC) 325 mg PO Q OTHER DAY Qty: 20 0RF Rx Instructions: may buy over the counter Held atorvastatin [Lipitor] 20 mg tablet 20 mg PO QAM Qty: 90 3RF Hold Instructions: Resume on 09/29/24. until seen by PCP Eliquis 5 mg Tablet 0 mg PO BID Hold Instructions: Resume on 09/15/24. hold at least until urology follow up appointment - discuss with Dr. Frankel if it is safe to restart at that time Rx Instructions: ON HOLD STILL 09/16 PER PT losartan [Cozaar] 100 mg tablet 0 mg PO HS Hold Instructions: Resume on 09/30/24. until seen by PCP Rx Instructions: ON HOLD 09/16 Discharge Orders: Discharge Order (Routine); Ordered 09/19/24 Ordered By: Dasia Galloway Admission Data Admit Date/Time: 09/16/24 14:56 Attending Provider: Abdiaziz Sabillon Admit Provider: Klaus Jin Primary Care Provider: Uri Hand Other Providers: Jah Braxton; Ramesh Ny; Michelle Rhodes Other Interventions: Discharge Summary Assessment (RN) Last Done: 09/19/24 14:46 Hospital Stay Data Consultations 09/16/24 14:54 Consult Urology Stat Diagnostic Imagining Performed 09/16/24 11:00 CT Abd and Pelvis [CT abd pelvis wo con] Stat 09/18/24 17:51 CT renal wo/w con Urgent Pending Results Patient Have Any Pending Studies at Discharge: Yes Discharge Instructions Given to Patient (Per Discharging Provider) Mr. Pal, Nahum were recently hospitalized after outpatient lab work had been abnormal. You also tested positive for COVID-19. You underwent a CAT scan today, 09/19 that revealed your right kidney hematoma has worsened in size and there was concern for infection. You have been transferred to [facility] for further care. Please follow their instructions upon discharge. Sincerely, Dasia Galloway PA-C Supervising Physician Co-Signing Physician Notes During face to face encounter, I obtained a brief physical examination, discussed hospital stay with patient and discharge instructions with patient. I discussed discharge plan of care with MILAGRO Galloway. I reviewed above note and agree with it except for the following: Patient was determined to have a superinfection of the hematoma. Patient will be transferred to a tertiary center to have this draned. Patient's blood pressure/temp are stable, and lab work appears slightly better, however patient is tachycardic. Total Time Total Time Spent Total Time Spent (In Minutes): 60 Total Time Includes: Examination of the Patient, Discharge Planning, Medication Reconciliation and Communication With Other Providers Coding Level of Care Code 06614 INP/OBS DISCH >30 MIN Diagnoses Perinephric hematoma S37.019A UTI (urinary tract infection) N39.0 Elevated LFTs R79.89 COVID-19 U07.1
[2024-09-19 14:49] VITALS: BP 129/73
[2024-09-19 15:08] VITALS: PULSE 127
[2024-09-19 16:06] LABS: A calco-baum cmplx NotReported Not Detected (NotDetected); Bact fragilis Not Reported Not Detected (NotDetected); Blood Culture Id Panel See PCR Comment (NotDetected); C auris Not Reported Not Detected (NotDetected); CTX-M Resistant Gene Not Detected (NotDetected); Calbicans Not Reported Not Detected (NotDetected); Candida glabrata Not Reported Not Detected (NotDetected); Candida krusei Not Reported Not Detected (NotDetected); Cneoformans/gatti Not Reported Not Detected (NotDetected); Cparapsilosis Not Reported Not Detected (NotDetected); E cloacae compx Not Reported DETECTED (NotDetected); Efaecalis Not Reported Not Detected (NotDetected); Efaecium Not Reported Not Detected (NotDetected); Enterobacterales DETECTED (NotDetected); Enterobacterales Not Reported DETECTED (NotDetected); Escherichia coli Not Reported Not Detected (NotDetected); H influenzae Not Reported Not Detected (NotDetected); IMP Resistant Gene Not Detected (NotDetected); K aerogenes Not Reported Not Detected (NotDetected); KPC Resistant Gene Not Detected (NotDetected); Koxytoca Not Reported Not Detected (NotDetected); Kpneumoniae grp Not Reported Not Detected (NotDetected); Lmonocyt Not Reported Not Detected (NotDetected); N meningitidis Not Reported Not Detected (NotDetected); NDM Resistant Gene Not Detected (NotDetected); OXA 48 Like Resistant Gene Not Detected (NotDetected); P aeruginosa Not Reported Not Detected (NotDetected); Proteus spp Not Reported Not Detected (NotDetected); Salmonella spp Not Reported Not Detected (NotDetected); Staph lugdunensis Not Reported Not Detected (NotDetected); Staph spp. Not Reported Not Detected (NotDetected); Staphaureus Not Reported Not Detected (NotDetected); Staphepi Not Reported Not Detected (NotDetected); Stenmaltophilia Not Reported Not Detected (NotDetected); Strep agal(GrpB) Not Reported Not Detected (NotDetected); Strep pneum Not Reported Not Detected (NotDetected); Strep pyog (GrpA) Not Reported Not Detected (NotDetected); Strep spp Not Reported Not Detected (NotDetected); VIM Resistant Gene Not Detected (NotDetected); mcr-1 Colistin Resistant Gene Not Detected (NotDetected)
[2024-09-19 16:23] LABS: Enterobacter cloacae complex DETECTED (NotDetected)
--- NOTE | 2024-09-22 06:01 | Electrocardiogram Report ---
Test Reason : Blood Pressure : */* mmHG Vent. Rate : 105 BPM Atrial Rate : 105 BPM P-R Int : 124 ms QRS Dur : 68 ms QT Int : 338 ms P-R-T Axes : 80 60 56 degrees QTcB Int : 446 ms Poor data quality, interpretation may be adversely affected Sinus tachycardia Nonspecific ST abnormality Abnormal ECG When compared with ECG of 16-Sep-2024 11:37, Premature atrial complexes are no longer Present Confirmed by Christopher Hi ([id number]) on 09/22/2024 6:01:06 AM Referred By: Uri Hand Confirmed By: Christopher Hi
== END 2024-09-19 16:18 | disposition short-term general hospital (02) | DRG 871 ==
LOC: ED 10:47 → OBSVTOIN 14:56 → 3N 14:56 → INTOOBSV 14:56 → SUATTDRO 14:56 → 3N 16:34 → 2N 09-18 05:00 → 3N 09-18 10:39 → 2E 09-19 12:27